=== PATIENT | female | born 1985 | race Caucasian/White ===

== ENCOUNTER → 2021-09-11 09:29 | Outpatient (CLI) | payer MEDICAID, SELFPAY ==
[2021-09-11 15:54] VITALS: BMI 33.6
== END ==
PROVIDERS: Visit Provider Nurse Practitioner Family
DX: Z11.1 Encounter for screening for respiratory tuberculosis (principal)
CPT/HCPCS: 86580

== ENCOUNTER → 2021-10-23 07:27 | Outpatient (CLI) | payer MEDICAID, SELFPAY ==
[2021-10-22 17:36] LABS: Basophils # 0.1 K/mm3 (0-0.2); Basophils % 1.1 % (0.1-2.0); Eosinophils # 0.3 K/mm3 (0.0-0.4); Eosinophils % 2.2 % (0.1-12.0); Hematocrit 43.7 % (37.0-47.0); Hemoglobin 14.6 g/dL (12.2-16.2); Lymphocytes # 2.8 K/mm3 (0.7-4.5); Lymphocytes % 21.9 % (10-50); Mean Corpuscular HGB Conc 33.4 g/dL (31.8-35.4); Mean Corpuscular Volume 83.9 fl (81-99); Mean Platelet Volume 8.5 fl (7.4-10.4); Monocytes # 0.6 K/mm3 (0.1-1.0); Monocytes % 4.4 % (1.7-9.3); Neutrophils # 9.1 K/mm3 (1.8-7.8); Neutrophils % 70.4 % (37.0-80.0); Platelet Count 841 K/mm3 (142-424); Red Blood Count 5.21 M/mm3 (4.20-5.40); Red Cell Distribution Width 16.3 % (11.5-17.5); White Blood Count 12.9 K/mm3 (4.8-10.8)
[2021-10-22 17:47] LABS: Alanine Aminotransferase 17 U/L (12-78); Albumin Level 4.2 g/dl (3.5-5.0); Albumin/Globulin Ratio 1.4 (1.1-1.8); Alkaline Phosphatase 112 U/L (38-126); Anion Gap 12.5 mEq/L (5-15); Aspartate Amino Transferase 33 U/L (14-36); Bilirubin,Total 0.2 mg/dl (0.2-1.3); Blood Urea Nitrogen 11 mg/dl (7-17); Calcium 9.2 mg/dl (8.4-10.2); Carbon Dioxide 26 mmol/L (22.0-30.0); Chloride 105 mmol/L (98-107); Estimated Glomerular Filt Rate 114 ml/min (>60); GFR (African American) 138 ML/MIN (>60); Globulin 3.1 g/dL (1.3-3.2); Glucose 93 mg/dl (74-100); Potassium 4.5 mmoL/L (3.5-5.1); Sodium 139 mmol/L (136-145); Total Protein,Serum 7.3 g/dl (6.3-8.2)
[2021-10-22 17:52] LABS: C-Reactive Protein 7.3 mg/L (0-4)
[2021-10-22 18:17] LABS: Erythrocyte Sedimentation Rate 16 mm/hr (0-20)
[2021-10-22 18:37] LABS: Vitamin B12 601 pg/mL (239-931)
[2021-10-24 12:36] LABS: RA Latex Turbid. <10.0 IU/mL (<14.0)
[2021-10-24 13:12] LABS: Anti-Centromere B Antibodies <0.2 AI (0.0-0.9); Anti-DNA (DS) Ab Qn 1 IU/mL (0-9); Anti-Jo-1 <0.2 AI (0.0-0.9); Anti-Smith Antibody <0.2 AI (0.0-0.9); Antichromatin Antibodies <0.2 AI (0.0-0.9); Antiscleroderma-70 Antibodies <0.2 AI (0.0-0.9); RNP Antibodies 0.2 AI (0.0-0.9); Sjogren's Anti-SS-A <0.2 AI (0.0-0.9); Sjogren's Anti-SS-B <0.2 AI (0.0-0.9)
[2021-10-28 01:07] LABS: Anti-Cyclic Citrullinated Pept 5 units (0-19)
== END ==
PROVIDERS: PCP Physician Assistant; Visit Provider Physician Assistant
DX: M54.12 Radiculopathy, cervical region (principal); R60.9 Edema, unspecified; R20.0 Anesthesia of skin; R20.2 Paresthesia of skin; M79.89 Other specified soft tissue disorders; L73.2 Hidradenitis suppurativa
CPT/HCPCS: 80053; 82607; 84443; 85025; 85651; 86140; 86200; 86225; 86235; 86431; 87522

== ENCOUNTER → 2021-11-13 08:10 | Outpatient (CLI) | payer MEDICAID, SELFPAY ==
--- NOTE | 2021-11-13 08:11 | MR_ITS ---
FINAL REPORT CLINICAL HISTORY: neck pain radiating down both arms. BILATERAL HAND SWELLING 2MONTHS. FINDINGS: Multiplanar MR imaging of the cervical spine was performed without contrast. On the sagittal T2-weighted images, disc degeneration is seen at multiple levels. There is straightening of the normal cervical curvature which could be due to positioning or muscle spasm. There is no evidence of fracture. The vertebral alignment is normal. The cervical spinal cord has an unremarkable appearance without evidence of mass, edema or syrinx. No significant canal stenosis is identified. The cervicomedullary junction is normal. C2-3: Left uncovertebral osteophytes are present. There is mild left neural foraminal narrowing. C3-4: There is a small central disc protrusion. C4-5: There is a small central disc protrusion. There is mild right neural foraminal narrowing. C5-6: An annular bulge is present. There is a small central disc protrusion. C6-7: An annular bulge is present. There is a right foraminal disc protrusion. There is moderate right and mild left neural foraminal narrowing. C7-T1: Bilateral uncovertebral osteophytes are present. There is moderate right and mild left neural foraminal narrowing. IMPRESSION: Multi level degenerative disc disease with spondylosis and areas of neural foraminal narrowing. Small central disc protrusions at several levels. Right foraminal disc protrusion at C6-7. Reviewed, Interpreted and Dictated by Gilberto Roy III, MD Transcribed by Nisha Garcia Authenticated and [facility]
[2021-11-13 08:30] LABS: Urine Pregnancy, HCG Qual. Negative (Negative)
== END ==
PROVIDERS: PCP Physician Assistant; Visit Provider Physician Assistant
DX: M54.12 Radiculopathy, cervical region (principal); Z01.812 Encounter for preprocedural laboratory examination
CPT/HCPCS: 72141; 76376; 81025

== ENCOUNTER 2021-12-01 08:49 | Outpatient (RCR) | payer MEDICAID, SELFPAY ==
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
== END 2021-12-01 08:50 | disposition home or self-care (01) ==
LOC: PT 08:49
PROVIDERS: PCP Physician Assistant; Visit Provider Physician Assistant
DX: M54.2 Cervicalgia (principal)
CPT/HCPCS: 97010; 97012; 97014; 97163; G0283

== ENCOUNTER → 2021-12-30 09:04 | Outpatient (POV) | payer MEDICAID, SELFPAY ==
[2021-12-30 09:14] VITALS: BP 149/86; PULSE 91; RESP 20; O2SAT 97; BMI 37.2
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
== END ==
PROVIDERS: PCP Physician Assistant; Visit Provider Nurse Practitioner Family
DX: M50.123 Cervical disc disorder at C6-C7 level with radiculopathy (principal); M54.40 Lumbago with sciatica, unspecified side; Z72.0 Tobacco use
CPT/HCPCS: 99202; G0463

== ENCOUNTER 2022-01-13 09:12 | Day surgery (SDC) | payer MEDICAID, SELFPAY ==
[2022-01-13 09:19] VITALS: BP 140/76; PULSE 87; RESP 20; O2SAT 96
[2022-01-13 09:20] VITALS: BP 156/80; PULSE 97; TEMP 36.4; O2SAT 96; BMI 37.2
[2022-01-13 09:29] VITALS: BP 140/93; PULSE 95; RESP 20; O2SAT 96
[2022-01-13 09:30] VITALS: BP 140/93; PULSE 97; RESP 20; O2SAT 95
--- NOTE | 2022-01-13 10:00 | P.PCN_ITS ---
Procedure Date: 01/13/22 Time: 11:00 Anesthesiologist:: Eduardo Ramirez CRNA Complications:: None Pre-procedure Diagnosis:: Degenerative disc disease cervical spine multilevels. Cervical radiculopathy. Post-procedure Diagnosis:: Degenerative disc disease cervical spine multilevels. Cervical radiculopathy. Same same Indications for Procedure:: Degenerative disc disease cervical spine multilevels. Cervical radiculopathy. Same same this patient is a 36-year-old pleasant female who comes our injection clinic today for cervical epidural steroid injection at the C6-7 level. Patient reports cervical neck pain. Bilateral arm radiculopathy. I discussed in detail with the patient regarding the procedure. Risks versus benefits. Answered her questions. She wishes to proceed. Procedure Details:: Procedure: Cervical epidural steroid injection under fluoroscopy. The patient was taken to the procedure room and noninvasive monitors placed, including noninvasive blood pressure cuff and pulse oximeter. The neck was prepped using chlorhexidine solution. The C6-7 interspace was palpated. The skin and subcutaneous tissue were anesthetized using lidocaine 1.5% and a 25-gauge needle. After this and 20-gauge Touhy epidural needle was placed in to the C6-7 interspace and advanced using loss if resistance to air until the epidural space was encountered. After confirmation of the needle placement in the epidural space with fluoroscopy, a solution containing 1.5% Lidocaine, 4ml and Depo- Medrol 80mg was inccrementally injected into the cervical epidural space. Plan and Disposition:: The patient tolerated the procedure well with no complications. The patient was observed in the pain clinic and then discharged home neurologically intact.
== END 2022-01-13 09:39 | disposition home or self-care (01) ==
LOC: SC.PAINP 09:14
PROVIDERS: PCP Physician Assistant; Visit Provider Nurse Anesthetist, Certified Registered
DX: M50.123 Cervical disc disorder at C6-C7 level with radiculopathy (principal)
CPT/HCPCS: 62321; J1040

== ENCOUNTER → 2022-01-20 09:41 | Outpatient (POV) | payer MEDICAID, SELFPAY ==
[2022-01-20 09:50] VITALS: BP 133/79; PULSE 86; RESP 18; TEMP 36.8; O2SAT 96; BMI 37.2
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
== END ==
PROVIDERS: PCP Physician Assistant; Visit Provider Nurse Practitioner Family
DX: M50.10 Cervical disc disorder with radiculopathy, unspecified cervical region (principal); M54.50 Low back pain, unspecified
CPT/HCPCS: 99212; G0463

== ENCOUNTER → 2022-01-29 13:22 | Outpatient (POV) | payer MEDICAID, SELFPAY ==
[2022-01-29 13:48] VITALS: BP 129/93; PULSE 100; RESP 18; TEMP 37.1; O2SAT 95; BMI 37.2
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
== END ==
PROVIDERS: PCP Physician Assistant; Visit Provider Nurse Practitioner Family
DX: M50.10 Cervical disc disorder with radiculopathy, unspecified cervical region (principal); Z72.0 Tobacco use; Z79.899 Other long term (current) drug therapy
CPT/HCPCS: 99212; G0463

== ENCOUNTER → 2022-02-03 15:00 | Outpatient (CLI) | payer MEDICAID, SELFPAY ==
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
== END ==
LOC: RAD 15:00
PROVIDERS: PCP Physician Assistant; Visit Provider Nurse Practitioner Family
DX: M54.6 Pain in thoracic spine (principal); M54.9 Dorsalgia, unspecified
CPT/HCPCS: 72146

== ENCOUNTER → 2022-02-11 08:21 | Outpatient (POV) | payer MEDICAID, SELFPAY ==
[2022-02-11 08:35] VITALS: BP 130/80; PULSE 85; RESP 18; TEMP 37; O2SAT 96; BMI 35.9
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
== END ==
PROVIDERS: PCP Physician Assistant; Visit Provider Nurse Practitioner Family
DX: M50.10 Cervical disc disorder with radiculopathy, unspecified cervical region (principal); M51.34 Other intervertebral disc degeneration, thoracic region
CPT/HCPCS: 99212; G0463

== ENCOUNTER 2022-02-11 08:43 | Emergency (ER) | payer MEDICAID, SELFPAY ==
--- NOTE | 2022-02-11 09:01 | EXP.UTC ---
Discharge Plan Disposition Patient Disposition: Home, Self-Care Condition: Good Prescriptions Prescriptions: New azithromycin [Zithromax] 250 mg tablet 250 mg PO UD DOSE PK Qty: 6 0RF Rx Instructions: Take two (2) tablets today, then one (1) tablet days #2 thru #5 benzonatate [benzonatate] 100 mg capsule 100 mg PO TIDP PRN (Reason: Cough) Qty: 30 0RF ondansetron 4 mg Tablet,Disintegrating 4 mg PO Q8H PRN (Reason: Nausea) Qty: 20 0RF No Action buprenorphine-naloxone [Suboxone] 8-2 mg film 1 film BUCCAL DAILY gabapentin [Neurontin] 300 mg capsule 300 mg PO Q12H Qty: 60 2RF hydroxyzine pamoate [Vistaril] 25 mg capsule 25 mg PO BID PRN (Reason: anxiety) Qty: 60 2RF celecoxib 200 MG capsule 200 mg PO DAILY citalopram 20 MG tablet 20 mg PO DAILY buspirone 7.5 MG tablet 7.5 mg PO BID cariprazine 1.5 MG capsule 1 mg PO DAILY spironolactone 25 mg tablet See Rx Instructions .ROUTE .COMPLEX Rx Instructions: TAKE 1 TABLET BY MOUTH TWICE DAILY methylprednisolone [Medrol (Vinicio)] 4 mg tablets,dose pack 4 mg PO PER PKG DIR minocycline 100 mg tablet 100 mg PO BID diclofenac sodium [Voltaren Arthritis Pain] 1 % gel 2 gm TP QID Rx Instructions: apply to single elbow, wrist or hand; for hand includes palm/fingers/back of hand Referrals Follow up/Referrals: Salina Agustin PA [Primary Care Provider] - See instructions Activity Restrictions/Add. Instructions Additional Instructions/Restrictions: Drink plenty of fluids. Take tylenol or ibuprofen for pain or fever. Take the medications as directed. Follow up with your regular doctor. GO TO THE ER FOR ANY WORSENING SYMPTOMS Quarantine until you know the results of your covid-19 test. Notify your school or workplace of your results and follow their instructions regarding return to work/school. Clinical Impressions Clinical Impression: Viral syndrome, Pharyngitis Stand Alone Forms Stand Alone Forms: Work/School Release Instructions Patient Instructions: DI for Pharyngitis/Tonsillopharyngitis -- Adult, Coronavirus Disease 2019, Preventing the Spread of Coronavirus Discharge Instructions Discharge ED Provider: Roberto Chapman [facility] HPI General Stated complaint: congestion, sore throat, QUINTERO Time Seen by Provider: 02/11/22 09:10 History of Present Illness Provider Complaint: She c/o sore throat and feeling bad for the past 2 days Related Data Home Medications Medication Instructions Recorded Confirmed buprenorphine 8 mg-naloxone 2 mg 1 film buccal DAILY ADDICTION 10/22/21 02/11/22 sublingual film (Suboxone) RECOVERY buspirone 7.5 mg tablet 7.5 mg PO BID Depression 12/30/21 02/11/22 cariprazine 1.5 mg capsule 1 mg PO DAILY DEPRESSION 12/30/21 02/11/22 celecoxib 200 mg capsule 200 mg PO DAILY Pain 12/30/21 02/11/22 citalopram 20 mg tablet 20 mg PO DAILY MOOD 12/30/21 02/11/22 diclofenac sodium 1 % topical gel 2 gm topical QID Pain 01/13/22 02/11/22 (Voltaren Arthritis Pain) methylprednisolone 4 mg tablets in 4 mg PO PER PKG DIR . 01/13/22 02/11/22 a dose pack (Medrol (Vinicio)) minocycline 100 mg tablet 100 mg PO BID . 01/13/22 02/11/22 spironolactone 25 mg tablet See Rx Instructions .Route 01/13/22 02/11/22 .COMPLEX . Previous Rx's Medication Instructions Recorded gabapentin 300 mg capsule 300 mg PO Q12H pain #60 caps 11/25/21 (Neurontin) hydroxyzine pamoate 25 mg capsule 25 mg PO BID PRN anxiety #60 caps 11/25/21 (Vistaril) azithromycin 250 mg tablet 250 mg PO UD DOSE PK #6 tabs 02/11/22 (Zithromax) benzonatate 100 mg capsule 100 mg PO TIDP PRN Cough #30 caps 02/11/22 ondansetron 4 mg disintegrating 4 mg PO Q8H PRN Nausea #20 tabs 02/11/22 tablet Allergies Allergy/AdvReac Type Severity Reaction Status Date / Time tramadol Allergy Verified 11/25/21 15:36 [facility] Medical History (Reviewed 02/12/22 @ 22:29
[2022-02-11 09:35] VITALS: BP 157/70; PULSE 85; RESP 18; TEMP 36.9; O2SAT 98; BMI 37.2
[2022-02-11 09:38] LABS: UTC Strep Screen (Rapid) Negative (Negative)
[2022-02-11 10:14] VITALS: BP 157/70; PULSE 85; RESP 18; TEMP 36.9; O2SAT 98
== END 2022-02-11 10:15 | disposition home or self-care (01) ==
PROVIDERS: Emergency Provider Nurse Practitioner Family; PCP Physician Assistant
DX: J02.9 Acute pharyngitis, unspecified (principal); B34.9 Viral infection, unspecified
CPT/HCPCS: 87880; 99212; C9803; G0463; U0003; U0005

== ENCOUNTER → 2022-03-12 12:09 | Outpatient (CLI) | payer MEDICAID, SELFPAY ==
[2022-03-12 14:18] LABS: HCG,Quantitative 69624 mIU/ml (0-5.42)
== END ==
PROVIDERS: PCP Physician Assistant; Visit Provider Obstetrics & Gynecology
DX: N92.6 Irregular menstruation, unspecified (principal)
CPT/HCPCS: 36415; 84702

== ENCOUNTER → 2022-03-23 09:53 | Outpatient (CLI) | payer MEDICAID, SELFPAY ==
[2022-03-23 10:49] LABS: Basophils # 0.1 K/mm3 (0-0.2); Basophils % 0.5 % (0.1-2.0); Eosinophils # 0.2 K/mm3 (0.0-0.4); Eosinophils % 1.3 % (0.1-12.0); Hemoglobin 13.9 g/dL (12.2-16.2); Lymphocytes # 1.8 K/mm3 (0.7-4.5); Lymphocytes % 12.8 % (10-50); Mean Corpuscular HGB Conc 33.1 g/dL (31.8-35.4); Mean Corpuscular Hemoglobin 28.7 pg (27.0-31.2); Mean Corpuscular Volume 86.7 fl (81-99); Mean Platelet Volume 8.2 fl (7.4-10.4); Monocytes # 0.5 K/mm3 (0.1-1.0); Monocytes % 3.2 % (1.7-9.3); Neutrophils # 11.7 K/mm3 (1.8-7.8); Platelet Count 730 K/mm3 (142-424); Red Blood Count 4.85 M/mm3 (4.20-5.40); Red Cell Distribution Width 14.6 % (11.5-17.5); White Blood Count 14.3 K/mm3 (4.8-10.8)
[2022-03-24 06:12] LABS: HIV Screen 4th Generation wRfx Non Reactive (Non Reactive)
[2022-03-24 11:18] LABS: Rapid Plasma Reagin Ab Titer Non Reactive (NonRea<1:1)
[2022-04-14 09:45] LABS: Hepatitis B Surface Antigen Negative
[2022-04-14 09:48] LABS: Hepatitis C Antibody <0.1
== END ==
PROVIDERS: PCP Physician Assistant; Visit Provider Obstetrics & Gynecology
DX: Z34.90 Encounter for supervision of normal pregnancy, unspecified, unspecified trimester (principal)
CPT/HCPCS: 36415; 85025; 86592; 86703; 86762; 86850; 87086; 87340; 87380; G0432

== ENCOUNTER 2022-04-08 22:44 | Emergency (ER) | payer MEDICAID, SELFPAY ==
[2022-04-08 23:03] VITALS: BP 120/57; PULSE 88; RESP 18; TEMP 37.1; O2SAT 96; BMI 38.9
[2022-04-08 23:28] LABS: Microscopic, Urine URINE MICROSCOPIC (MICROSCOPIC)
[2022-04-08 23:31] LABS: Appearance,Urine SL CLOUDY (Clear); Bilirubin,Urine Negative (Negative); Blood, Urine 3+ (Negative); Color,Urine YELLOW (Yellow); Glucose,Urine (UA) Negative (Negative); Ketones,Urine Negative (Negative); Leukocyte Esterase,Urine Negative (Negative); Nitrate,Urine Negative (Negative); Protein,Urine Negative (Negative); Specific Gravity, Urine 1.025 (1.005-1.030); Urobilinogen,Urine 0.2 EU/dl (0.2)
[2022-04-08 23:35] LABS: Urine Pregnancy, HCG Qual. Positive (Negative)
[2022-04-08 23:42] LABS: Basophils # 0.1 K/mm3 (0-0.2); Basophils % 0.6 % (0.1-2.0); Eosinophils # 0.4 K/mm3 (0.0-0.4); Eosinophils % 2.9 % (0.1-12.0); Hematocrit 38.7 % (37.0-47.0); Hemoglobin 13.1 g/dL (12.2-16.2); Lymphocytes % 20.6 % (10-50); Mean Corpuscular HGB Conc 33.8 g/dL (31.8-35.4); Mean Corpuscular Hemoglobin 29.1 pg (27.0-31.2); Mean Corpuscular Volume 86.2 fl (81-99); Mean Platelet Volume 7.9 fl (7.4-10.4); Monocytes # 0.6 K/mm3 (0.1-1.0); Monocytes % 3.8 % (1.7-9.3); Neutrophils # 10.5 K/mm3 (1.8-7.8); Platelet Count 675 K/mm3 (142-424); Red Blood Count 4.49 M/mm3 (4.20-5.40); Red Cell Distribution Width 14.3 % (11.5-17.5); White Blood Count 14.6 K/mm3 (4.8-10.8)
[2022-04-08 23:46] LABS: Chloride 103 mmol/L (98-107); Potassium 3.9 mmoL/L (3.5-5.1); Sodium 137 mmol/L (136-145)
--- NOTE | 2022-04-08 23:48 | US_ITS ---
PROCEDURE INFORMATION: Exam: US , Transvaginal Exam date and time: 04/08/2022 11:54 PM Age: 36 years old Clinical indication: Lmp or gestational age (in weeks): 12w6; Antepartum complications; Bleeding; ; Additional info: 14 wk , bleeding after intercourse TECHNIQUE: Imaging protocol: Real-time transvaginal obstetrical ultrasound of the maternal pelvis with image documentation. Transvaginal imaging was used for better evaluation of the fetus, adnexa, and/or cervix. COMPARISON: No relevant prior studies available. FINDINGS: Gestation: There is a single intrauterine identified. Unremarkable limited exam. heart rate: cardiac activity is noted at a rate of 167 bpm. Placenta: The placenta is forming posteriorly. The inferior placental tip covers the internal cervical os. No subchorionic hemorrhage is demonstrated. Amniotic fluid: Amniotic fluid is adequate. BIOMETRY: [place]-Rump length (CRL): Based on crown-rump length the estimated age is 12 weeks 4 days. MATERNAL: Right ovary/adnexa: The right ovary measures 40 x 18 x 20 mm with normal echo pattern and blood flow. Left ovary/adnexa: The left ovary measures 32 x 32 x 20 mm with normal echo pattern and blood flow. IMPRESSION: Single living intrauterine with estimated age of 12 weeks 4 days. cardiac activity is present at a rate of 167 bpm. The placenta is forming posteriorly with the inferior placental tip covering the internal cervical os. Follow-up is recommended.
--- NOTE | 2022-04-08 23:48 | HMH.EDUROGF ---
Discharge Plan Disposition Patient Disposition: Home, Self-Care Chief Complaint: Vaginal Bleeding Prescriptions Prescriptions: No Action buprenorphine-naloxone [Suboxone] 8-2 mg film 1 film BUCCAL DAILY [id number] 28 mg iron- 1 mg-400 mg capsule 1 cap PO DAILY Referrals Follow up/Referrals: Isis Garcia MD [Primary Care Provider] - See instructions Clinical Impressions Clinical Impression: Instructions Patient Instructions: DI for Vaginal Bleeding During Discharge ED Provider: Patrick Cho Female Urogenital HPI General Chief complaint: Vaginal Bleeding Stated complaint: 13 Wks pregant vaginal bleeding Time Seen by Provider: 04/08/22 23:48 Mode of Arrival: Ambulatory Source of Information: Patient and Medical Record Limitations: No Limitations Description of Symptoms (Recalled from ER Triage Doc. by RN): pt is currently 14 weeks . States that she had intercourse tonight and two hours later she noticed heavy vaginal bleeding. States that was roughly at 1900 and she noticed it happen again at 2030. History of Present Illness HPI Narrative: 13 weeks preg with spotting after coitus Complaint: vaginal bleeding Onset (ago): hour(s) Severity: mild : Yes Associated symptoms: vaginal bleeding Related Data Home Medications Medication Instructions Recorded Confirmed buprenorphine 8 mg-naloxone 2 mg 1 film buccal DAILY ADDICTION 10/22/21 04/08/22 sublingual film (Suboxone) RECOVERY vitamins no.68-iron 28 1 cap PO DAILY vitamin 04/08/22 04/08/22 mg-folate no.6 1 mg-dha 400 mg capsule Allergies Allergy/AdvReac Type Severity Reaction Status Date / Time tramadol Allergy Verified 04/02/22 09:15 [facility] Medical History (Updated 04/09/22 @ 00:30 by Patrick Cho MD) Anxiety and depression Neuropathy Thrombocytosis Surgical History (Updated 03/23/22 @ 09:06 by Isis Garcia MD) Hx of section Social History Smoking Status: Current every day smoker tobacco type: cigarettes alcohol intake: never substance use type: unknown current occupational status: employed Travel in the last 8 weeks: None ROS Obtained: Yes All systems reviewed & no additional complaints except as documented Physical Exam General General appearance: alert Head Head exam: normocephalic Eye Eye exam: Present PERRL and EOMI ENT ENT exam: Present mucous membranes moist Neck Neck exam: Present trachea midline Respiratory Respiratory exam: Absent respiratory distress Cardiovascular Cardiovascular exam: Present regular rate Abdominal Exam Abdominal exam: Present soft Extremities Exam Extremities exam: Present full ROM Neurological Exam Neurological exam: Present alert, oriented X3 and CN II-XII intact Skin Skin exam: Absent rash Medical Decision Making Medical Records Medical records reviewed: Yes I reviewed the patient's medical records. Dimitris Inquiry Pt receiving controlled substance: No Vital Signs: 04/08/22 23:03 Temperature 98.7 F Temperature Source Oral Pulse Rate [Apical] 88 Respiratory Rate 18 Blood Pressure [Right Arm] 120/57 L Blood Pressure Mean [Right Arm] 78 Blood Pressure Source [Right Arm] Automatic Cuff Blood Pressure Position [Right Arm] Sitting 02 Sat by Pulse Oximetry 96 Oxygen Delivery Method Room Air Lab Data Lab results reviewed: Yes I reviewed the patient's lab results. Lab Results 04/08/22 22:52: Urine Color Yellow, Urine Appearance Sl cloudy, Urine pH 7.0, Ur Specific [place] 1.025, Urine Protein Negative, Urine Glucose (UA) Negative, Urine Ketones Negative, Urine Blood 3+, Urine Nitrate Negative, Urine Bilirubin Negative, Urine Urobilinogen 0.2, Ur Leukocyte Esterase Negative, Urine RBC 5-10, Urine WBC Occasional, Ur Squamous Epith Cells 3-5, Urine Bacteria Trace 04/08/22 22:52: Urine HCG, Qual Positive
[2022-04-08 23:49] LABS: Alanine Aminotransferase 11 U/L (12-78); Albumin Level 4.1 g/dl (3.5-5.0); Albumin/Globulin Ratio 1.4 (1.1-1.8); Alkaline Phosphatase 68 U/L (38-126); Anion Gap 9.9 mEq/L (5-15); Aspartate Amino Transferase 16 U/L (14-36); Blood Urea Nitrogen 10 mg/dl (7-17); Carbon Dioxide 28 mmol/L (22.0-30.0); Creatinine Clearance Estimated 247 mL/min (50-200); Estimated Glomerular Filt Rate 140 ml/min (>60); GFR (African American) 170 ML/MIN (>60); Globulin 2.9 g/dL (1.3-3.2)
[2022-04-08 23:50] LABS: Calcium 9.8 mg/dl (8.4-10.2); Glucose 98 mg/dl (74-100)
[2022-04-08 23:52] LABS: Bilirubin,Total < 0.1 mg/dl (0.2-1.3)
--- NOTE | 2022-04-08 23:52 | PC.NURSE ---
Pt gone to RAD for U/S
[2022-04-08 23:54] LABS: Bacteria,Urine Trace /lpf; WBC,Urine Occasional #/hpf (0-3)
[2022-04-09 00:32] VITALS: BP 118/60; PULSE 67; RESP 17; TEMP 36.7; O2SAT 99
[2022-04-09 00:55] LABS: HCG,Quantitative 21999 mIU/ml (0-5.42)
== END 2022-04-09 00:47 | disposition home or self-care (01) ==
PROVIDERS: Emergency Provider Emergency Medicine; PCP Obstetrics & Gynecology
DX: O46.8X2 Other antepartum hemorrhage, second trimester (principal); Z3A.14 14 weeks gestation of pregnancy; Z88.6 Allergy status to analgesic agent; F11.20 Opioid dependence, uncomplicated
CPT/HCPCS: 76817; 80053; 81001; 81025; 84702; 85025; 99284

== ENCOUNTER → 2022-05-14 09:06 | Outpatient (CLI) | payer MEDICAID, SELFPAY ==
[2022-05-14 10:19] LABS: Basophils # 0.1 K/mm3 (0-0.2); Basophils % 0.3 % (0.1-2.0); Eosinophils # 0.3 K/mm3 (0.0-0.4); Eosinophils % 2.1 % (0.1-12.0); Hematocrit 36.2 % (37.0-47.0); Hemoglobin 12.3 g/dL (12.2-16.2); Lymphocytes # 2.1 K/mm3 (0.7-4.5); Lymphocytes % 13.4 % (10-50); Mean Corpuscular HGB Conc 33.9 g/dL (31.8-35.4); Mean Corpuscular Volume 88.4 fl (81-99); Mean Platelet Volume 7.7 fl (7.4-10.4); Monocytes # 0.6 K/mm3 (0.1-1.0); Monocytes % 3.7 % (1.7-9.3); Neutrophils # 12.3 K/mm3 (1.8-7.8); Neutrophils % 80.5 % (37.0-80.0); Platelet Count 681 K/mm3 (142-424); Red Blood Count 4.09 M/mm3 (4.20-5.40); Red Cell Distribution Width 14.3 % (11.5-17.5); White Blood Count 15.3 K/mm3 (4.8-10.8)
[2022-05-14 10:21] LABS: MANUAL DIFFERENTIAL MANUAL DIFFERENTIAL (MANUAL DIFF)
[2022-05-14 10:32] LABS: Eosinophils % 1 % (0-3); Lymphocytes % 5 % (10-50); Monocytes % 5 % (2-9); Neutrophils % 89 % (42-76); Total Cells Counted 100
[2022-05-14 10:33] LABS: Platelet Estimate Moderate Increase; RBC Morphology Normal
== END ==
PROVIDERS: PCP Physician Assistant; Visit Provider Internal Medicine Medical Oncology
DX: D47.1 Chronic myeloproliferative disease (principal); Z15.89 Genetic susceptibility to other disease
CPT/HCPCS: 36415; 85007; 85025

== ENCOUNTER → 2022-07-16 14:30 | Outpatient (CLI) | payer MEDICAID, SELFPAY ==
[2022-07-16 15:27] LABS: Basophils % 0.3 % (0.1-2.0); Eosinophils # 0.3 K/mm3 (0.0-0.4); Lymphocytes # 2.3 K/mm3 (0.7-4.5); Lymphocytes % 14.9 % (10-50); Mean Corpuscular HGB Conc 33.2 g/dL (31.8-35.4); Mean Corpuscular Hemoglobin 29.6 pg (27.0-31.2); Mean Platelet Volume 7.9 fl (7.4-10.4); Monocytes # 0.7 K/mm3 (0.1-1.0); Monocytes % 4.4 % (1.7-9.3); Neutrophils # 11.9 K/mm3 (1.8-7.8); Neutrophils % 78.4 % (37.0-80.0); Platelet Count 654 K/mm3 (142-424); Red Blood Count 4.04 M/mm3 (4.20-5.40); Red Cell Distribution Width 14.3 % (11.5-17.5); White Blood Count 15.2 K/mm3 (4.8-10.8)
[2022-07-16 15:29] LABS: MANUAL DIFFERENTIAL MANUAL DIFFERENTIAL (MANUAL DIFF)
[2022-07-16 17:42] LABS: Eosinophils % 2 % (0-3); Lymphocytes % 22 % (10-50); Monocytes % 4 % (2-9); Neutrophils % 72 % (42-76); Platelet Estimate Marked Increase; RBC Morphology Normal; Total Cells Counted 100
== END ==
PROVIDERS: PCP Physician Assistant; Visit Provider Internal Medicine Medical Oncology
DX: D75.839 Thrombocytosis, unspecified (principal); Z15.89 Genetic susceptibility to other disease
CPT/HCPCS: 36415; 85007; 85025

== ENCOUNTER → 2022-07-17 10:42 | Outpatient (CLI) | payer MEDICAID, SELFPAY ==
[2022-07-17 11:13] LABS: Basophils # 0.1 K/mm3 (0-0.2); Basophils % 0.5 % (0.1-2.0); Eosinophils # 0.4 K/mm3 (0.0-0.4); Eosinophils % 2.6 % (0.1-12.0); Hematocrit 35.2 % (37.0-47.0); Hemoglobin 11.9 g/dL (12.2-16.2); Lymphocytes # 2.1 K/mm3 (0.7-4.5); Lymphocytes % 12.7 % (10-50); Mean Corpuscular HGB Conc 33.7 g/dL (31.8-35.4); Mean Corpuscular Hemoglobin 29.6 pg (27.0-31.2); Mean Corpuscular Volume 87.8 fl (81-99); Mean Platelet Volume 8.1 fl (7.4-10.4); Monocytes # 0.7 K/mm3 (0.1-1.0); Neutrophils # 13.2 K/mm3 (1.8-7.8); Neutrophils % 80.2 % (37.0-80.0); Platelet Count 645 K/mm3 (142-424); Red Blood Count 4.01 M/mm3 (4.20-5.40); Red Cell Distribution Width 14.4 % (11.5-17.5); White Blood Count 16.5 K/mm3 (4.8-10.8)
[2022-07-17 11:14] LABS: MANUAL DIFFERENTIAL MANUAL DIFFERENTIAL (MANUAL DIFF)
[2022-07-17 11:51] LABS: Eosinophils % 4 % (0-3); Lymphocytes % 12 % (10-50); Monocytes % 4 % (2-9); Neutrophils % 80 % (42-76); Platelet Estimate Slight Increase; RBC Morphology Normal; Total Cells Counted 100
== END ==
PROVIDERS: PCP Physician Assistant; Visit Provider Obstetrics & Gynecology
DX: Z34.90 Encounter for supervision of normal pregnancy, unspecified, unspecified trimester (principal)
CPT/HCPCS: 36415; 85007; 85025

== ENCOUNTER → 2022-07-22 09:43 | Outpatient (CLI) | payer MEDICAID, SELFPAY ==
[2022-07-22 10:20] LABS: Glucose,Fasting 114 mg/dl (74-100)
[2022-07-22 11:44] LABS: Glucose 1 Hour 148 mg/dL (74-100)
[2022-07-22 11:58] LABS: Benzodiazepines Screen,Urine Negative ng/ml (<200)
[2022-07-22 11:59] LABS: Amphetamine/Metha Screen,Urine Negative ng/ml (<1000)
[2022-07-22 12:00] LABS: Barbiturates Screen,Urine Positive ng/ml (<200); Cannabinoid Screen,Urine Positive ng/ml (<50)
[2022-07-22 12:01] LABS: Cocaine Screen,Urine Negative ng/ml (<300); Methadone Screen,Urine Negative ng/ml (<300)
[2022-07-22 12:03] LABS: Opiate Screen,Urine Negative ng/ml (<300)
[2022-07-22 12:04] LABS: Phencyclidine Screen,Urine Negative ng/ml (<25)
== END ==
PROVIDERS: PCP Physician Assistant; Visit Provider Obstetrics & Gynecology
DX: O99.320 Drug use complicating pregnancy, unspecified trimester (principal); F11.20 Opioid dependence, uncomplicated
CPT/HCPCS: 36415; 80305; 82951

== ENCOUNTER → 2022-07-29 10:11 | Outpatient (CLI) | payer MEDICAID, SELFPAY ==
[2022-07-29 10:48] LABS: Glucose,Fasting 106 mg/dl (74-100)
[2022-07-29 12:12] LABS: Glucose 1 Hour 161 mg/dL (74-100)
[2022-07-29 13:04] LABS: Glucose 2 Hour 98 mg/dL (74-100)
[2022-07-29 14:48] LABS: Glucose 3 Hour 86 mg/dL (74-100)
== END ==
PROVIDERS: PCP Physician Assistant; Visit Provider Obstetrics & Gynecology
DX: Z34.90 Encounter for supervision of normal pregnancy, unspecified, unspecified trimester (principal); Z3A.27 27 weeks gestation of pregnancy
CPT/HCPCS: 36415; 82951

== ENCOUNTER → 2022-10-28 01:00 | Outpatient (CLI) | payer MEDICAID, SELFPAY ==
[2022-10-28 12:30] LABS: Basophils # 0.1 K/mm3 (0-0.2); Basophils % 0.4 % (0.1-2.0); Eosinophils # 0.5 K/mm3 (0.0-0.4); Hematocrit 41.5 % (37.0-47.0); Hemoglobin 13.1 g/dL (12.2-16.2); Lymphocytes # 2.5 K/mm3 (0.7-4.5); Lymphocytes % 21.2 % (10-50); Mean Corpuscular HGB Conc 31.7 g/dL (31.8-35.4); Mean Corpuscular Hemoglobin 27.3 pg (27.0-31.2); Mean Corpuscular Volume 86.1 fl (81-99); Mean Platelet Volume 7.8 fl (7.4-10.4); Monocytes # 0.5 K/mm3 (0.1-1.0); Monocytes % 4.2 % (1.7-9.3); Neutrophils # 8.2 K/mm3 (1.8-7.8); Neutrophils % 70.2 % (37.0-80.0); Platelet Count 829 K/mm3 (142-424); Red Blood Count 4.81 M/mm3 (4.20-5.40); Red Cell Distribution Width 14.3 % (11.5-17.5); White Blood Count 11.7 K/mm3 (4.8-10.8)
[2022-10-28 13:11] LABS: Alanine Aminotransferase 18 U/L (12-78); Albumin/Globulin Ratio 1.4 (1.1-1.8); Alkaline Phosphatase 135 U/L (38-126); Anion Gap 13.9 mEq/L (5-15); Aspartate Amino Transferase 23 U/L (14-36); Bilirubin,Total 0.2 mg/dl (0.2-1.3); Blood Urea Nitrogen 15 mg/dl (7-17); Carbon Dioxide 26 mmol/L (22.0-30.0); Chloride 105 mmol/L (98-107); Chol/HDL Ratio 4.3 (1-3.5); Cholesterol 193 mg/dl (140-200); Estimated Glomerular Filt Rate 113 ml/min (>60); GFR (African American) 137 ML/MIN (>60); Globulin 2.9 g/dL (1.3-3.2); Glucose 96 mg/dl (74-100); HDL Cholesterol 45 mg/dl (40-60); Potassium 4.9 mmoL/L (3.5-5.1); Sodium 140 mmol/L (136-145); Total Protein,Serum 6.9 g/dl (6.3-8.2); Triglycerides 222 mg/dl (30-150); VLDL Cholesterol 44 mg/dL (0-40)
[2022-10-28 13:22] LABS: Direct LDL Cholesterol 88.82 mg/dL (100-129)
[2022-10-28 13:30] LABS: 25-OH Vitamin D, Total 30.9 ng/mL (30-100)
[2022-10-28 13:42] LABS: Thyroid Stimulating Hormone 0.88 uIU/mL (0.465-4.68)
== END ==
PROVIDERS: PCP Physician Assistant; Visit Provider Physician Assistant
DX: F41.9 Anxiety disorder, unspecified (principal); G62.9 Polyneuropathy, unspecified; L73.2 Hidradenitis suppurativa; E66.9 Obesity, unspecified; Z68.36 Body mass index [BMI] 36.0-36.9, adult; Z15.89 Genetic susceptibility to other disease
CPT/HCPCS: 80053; 80061; 82306; 84443; 85025

== ENCOUNTER → 2022-11-05 09:51 | Outpatient (CLI) | payer MEDICAID, SELFPAY | PROVIDERS: PCP Physician Assistant; Visit Provider Physician Assistant | DX: Z15.89 Genetic susceptibility to other disease (principal) ==

== ENCOUNTER → 2023-04-29 13:01 | Outpatient (CLI) | payer MEDICAID, SELFPAY ==
[2023-04-29 14:14] LABS: Amphetamine/Metha Screen,Urine Negative ng/ml (<1000)
[2023-04-29 14:16] LABS: Barbiturates Screen,Urine Negative ng/ml (<200); Cannabinoid Screen,Urine Positive ng/ml (<50)
[2023-04-29 14:17] LABS: Benzodiazepines Screen,Urine Negative ng/ml (<200)
[2023-04-29 14:18] LABS: Cocaine Screen,Urine Negative ng/ml (<300); Opiate Screen,Urine Negative ng/ml (<300)
[2023-04-29 14:19] LABS: Methadone Screen,Urine Negative ng/ml (<300)
[2023-04-29 14:20] LABS: Phencyclidine Screen,Urine Negative ng/ml (<25)
== END ==
PROVIDERS: PCP Physician Assistant; Visit Provider Family Medicine
DX: Z79.899 Other long term (current) drug therapy (principal); N39.0 Urinary tract infection, site not specified; B96.29 Other Escherichia coli [E. coli] as the cause of diseases classified elsewhere
CPT/HCPCS: 80305; 87086

== ENCOUNTER 2023-06-07 18:13 | Outpatient (CLI) | payer MEDICAID, SELFPAY ==
[2023-06-07 23:20] LABS: Amphetamine/Metha Screen,Urine Positive ng/ml (<1000)
[2023-06-07 23:21] LABS: Barbiturates Screen,Urine Negative ng/ml (<200); Benzodiazepines Screen,Urine Negative ng/ml (<200)
[2023-06-07 23:22] LABS: Cannabinoid Screen,Urine Negative ng/ml (<50); Cocaine Screen,Urine Negative ng/ml (<300)
[2023-06-07 23:23] LABS: Methadone Screen,Urine Negative ng/ml (<300)
[2023-06-07 23:24] LABS: Opiate Screen,Urine Negative ng/ml (<300)
[2023-06-07 23:25] LABS: Phencyclidine Screen,Urine Negative ng/ml (<25)
[2023-06-13 17:23] LABS: Gabapentin,Urine 649.7 ug/mL (.)
== END 2023-06-07 23:59 ==
LOC: LAB.DROPOF 18:13
PROVIDERS: PCP Physician Assistant; Visit Provider Physician Assistant
DX: Z79.899 Other long term (current) drug therapy (principal)
CPT/HCPCS: 80307

== ENCOUNTER 2023-08-04 11:00 | Outpatient (RCR) | payer MEDICAID, SELFPAY ==
--- NOTE | 2023-07-16 10:38 | HMH.PTOPEV ---
PT Outpatient Evaluation Rehab PT Outpatient Evaluation Start: 07/16/23 10:24 Freq: Status: Active Protocol: Document 07/16/23 10:24 BECKAYAKOV (Rec: 07/16/23 10:38 BECKACORINACHRISTY [id number]) E-signed By Carlos Rice, PT Outpatient Therapy Subjective History Subjective History Patient is a 38 year old female presenting to outpatient PT with reports of chronic cervical and thoracic spine pain with BUE radicular symptoms. Symptoms of insidious onset starting approx 4 years ago. Most recent imaging indicates multi -level cervical DDD, C 6/7 disc bulge and T 9/10 10/11 disc bulges. Radicular symptoms consistent with C 6/7 dermatomes. Comorbidities include hx of depression/ anxitey. New diagnosis of cancer in past 12 No months? Chief Complaint Pain,Stiff,Paresthesia Symptom Type Ache,Burning,Numbness,Tingling Symptoms Relieved By Rest/Positioning,Heat, Prescription Meds Prior Functional Limitations None Current Functional Limitations Reaching,Lifting,Housework, Desk Work/Reading,Driving Symptom Description Constant but Variable Level of pain today (0-10) 1 Pain scale - at its best (0-10) 1 Pain scale - at its worst (0-10) 8 Cervical Eval Palpation Cervical Muscles R Cervical Paraspinal,L Cervical Paraspinal,R Suboccipital,L Suboccipital,R CT Junction,L CT Junction,R Upper Trapezius,L Upper Trapezius,R Thoracic Paraspinals,L Thoracic Paraspinals Cervical/Thoracic Palpation Findings Spasm Posture Head/C-Spine Posture Sitting Position C-Spine Flattened Head/C-Spine Posture Standing Position C-Spine Flattened Flexibility Deficits Upper Trapezius Muscle Length (R) Moderate Tightness,(L) Moderate Tightness Levaetor Scapulae Muscle Length (R) Moderate Tightness,(L) Moderate Tightness Pectoralis Minor Muscle Length (R) Moderate Tightness,(L) Moderate Tightness Passive Joint Mobility Cervical PIVM WNL: R OA L OA R AA L AA R C2/3 L C2/3 R C3/4 L C3/4 R C4/5 L C4/5 R C5/6 L C5/6 R C6/7 L C6/7 R C7/T1 L C7/T1 AROM Cervical Spine Extension Active Range of 38 Motion (degrees) Cervical Spine Flexion Active Range of 46 Motion (degrees) Cervical Spine Right Lateral Flexion 37 Active Range of Motion (degrees) Cervical Spine Left Lateral Flexion 25 Active Range of Motion (degrees) Cervical Spine Right Rotation Active 60 Range of Motion (degrees) Cervical Spine Left Rotation Active 52 Range of Motion (degrees) MMT Bilateral Deltoid (C5) 5 Normal Biceps Brachii Strength Grade 5 Normal Wrist Extension Strength Grade 5 Normal Triceps Brachii Strength Grade 5 Normal Wrist Flexion Strength Grade 5 Normal Extensor Pollicis Longus Strength Grade 5 Normal Finger Abduction Strength Grade 5 Normal Altered Sensation Upper extremity Dermatomes C6,C7 Comment NT/burning R>L Special Test C-Spine Foraminal Compression (Spurling) Positive Left,Positive Right Test C-Spine Foraminal Distraction Test Positive Neck Disability Index Neck Disability Index Section 1: Pain Intensity The pain is very mild at moment Section 2: Personal Care (washing, I can look after myself dressing, etc.) normally but it causes extra pain Section 3: Lifting Pain prevents me lifting heavy weights off the floor, but I can manage Section 4: Reading I can't read as much as I want because of moderate pain in my neck Section 5: Headaches I have severe headaches, which come frequently Section 6: Concentration I have a lot of difficulty in concentrating when I want to Section 7: Work I can do most of my usual work , but no more Section 8: Driving I can drive my car as long as I want with moderate pain in my neck Section 9: Sleeping My sleep is moderately disturbed (2-3 hrs. sleepless) Section 10: Recreation I am able to engage in most, but not all of my usual recreation NDI Score 23 Outpatient Therapy Assessment Impairments Problems/Impairmments Palpation Tenderness,Impaired Range of Motion,Impaired Driving,Impaired Lifting, Impaired Household Care, Impaired Recreational Activities,Subjective C/O Pain Prognosis Rehab Potential Good Clinical Impression Consistent with Diagnosis Yes Short Term Goals Number of Weeks 2 Decrease Subjective C/O Pain Yes: 5/10at worst Patient to be Ind w/ HEP Yes Care Home Goals Number of Weeks 4-6 Decreased Palpation Tenderness Yes: 1/4 Increase Range of Motion Yes: WNL Restore Ability to Lift Objects to Yes: 10 lb without difficulty Shoulder Level Restore Ability to Lift Objects Overhead Yes Improve Ability For Household Care Yes Improve Neck Disability Index Score Yes: <15 Decrease Subjective C/O Pain Yes: 2/10 at worst Outpatient Therapy Plan of Care Treatment Plan May Include Therapeutic Exercise Including Home Yes Exercise Program Manual Therapy Techniques Yes Neuromuscular Re-education Yes Therapeutic Activities to Return to Yes Previous Functional/Work Level ADL/Self Care Education Yes Mechanical Traction Yes Dry Needling Yes Thermal Modalities Yes Electrical Stimulation Yes Ultrasound/Phonophoresis Yes Iontophoresis Yes Massage Yes Eval/Re-Eval Yes Frequency Times per week 2 Duration Number of Weeks 4-6 Addendums This patient is a candidate for social No or vocational rehab? Patient/Guardian verbally acknowledges Yes understanding of treatment program and consents to further treatment? Patient/Guardian verbally acknowledges Yes understanding of diagnosis, prognosis and goals for treatment? Eval Complexity PT Charges 75974 - Moderate Complexity Shoulder/Elbow Eval Shoulder Objective Measurements Elbow Objective Measurements PHYSICIAN CERTIFICATION: I certify the specified therapy services for Robyn Louis are required, authorized, and reviewed every 30 days.
== END 2023-08-04 12:00 | disposition home or self-care (01) ==
LOC: PT 11:00
PROVIDERS: Visit Provider Physician Assistant
DX: M54.12 Radiculopathy, cervical region (principal); M50.30 Other cervical disc degeneration, unspecified cervical region; R93.7 Abnormal findings on diagnostic imaging of other parts of musculoskeletal system
CPT/HCPCS: 97010; 97014; 97110; 97163; G0283

== ENCOUNTER 2023-08-12 12:30 | Outpatient (CLI) | payer MEDICAID, SELFPAY ==
--- NOTE | 2023-08-12 12:36 | XR_ITS ---
FINAL REPORT CLINICAL HISTORY: Wrist pain FINDINGS: Right wrist Three views were obtained. There is no acute fracture or dislocation. 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 The joint spaces appear normal. No soft tissue abnormality is identified. 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 Please correlate with known underlying congenital anomalies. Reviewed, Interpreted and Dictated by Alton Nieto MD Transcribed by Jaci Welch Authenticated and . [facility]
--- NOTE | 2023-08-12 12:36 | XR_ITS ---
FINAL REPORT CLINICAL HISTORY: lt wrist pain FINDINGS: Right wrist Three views were obtained. There is no acute fracture or dislocation. 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 The degree of shortening of the 4th and 5th metacarpals are congruent. The joint spaces appear normal. No soft tissue abnormality is identified. 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 Please correlate with known underlying congenital anomalies. Reviewed, Interpreted and Dictated by Alton Nieto MD Transcribed by Jaci Welch Authenticated and [facility]
== END 2023-08-12 23:59 ==
LOC: RAD 12:31
PROVIDERS: PCP Physician Assistant; Visit Provider Orthopaedic Surgery
DX: M25.531 Pain in right wrist (principal); M25.532 Pain in left wrist
CPT/HCPCS: 73110

== ENCOUNTER 2023-08-12 13:50 | Outpatient (RCR) | payer MEDICAID, SELFPAY | END 2023-08-12 15:00 | disposition home or self-care (01) | LOC: OT 13:50 | PROVIDERS: Visit Provider Orthopaedic Surgery | DX: M25.532 Pain in left wrist (principal); M25.531 Pain in right wrist | CPT/HCPCS: 97763 ==

== ENCOUNTER 2023-08-30 16:14 | Outpatient (CLI) | payer MEDICAID, SELFPAY ==
[2023-08-30 16:20] LABS: MANUAL DIFFERENTIAL MANUAL DIFFERENTIAL (MANUAL DIFF)
[2023-08-30 17:12] LABS: Basophils # 0.1 K/mm3 (0-0.2); Eosinophils # 0.5 K/mm3 (0.0-0.4); Eosinophils % 4.3 % (0.1-12.0); Hematocrit 44.3 % (37.0-47.0); Hemoglobin 14.5 g/dL (12.2-16.2); Lymphocytes # 3.7 K/mm3 (0.7-4.5); Mean Corpuscular HGB Conc 32.7 g/dL (31.8-35.4); Mean Corpuscular Hemoglobin 29.3 pg (27.0-31.2); Mean Corpuscular Volume 89.7 fl (81-99); Mean Platelet Volume 8.2 fl (7.4-10.4); Monocytes # 0.5 K/mm3 (0.1-1.0); Monocytes % 4.3 % (1.7-9.3); Neutrophils # 6.7 K/mm3 (1.8-7.8); Neutrophils % 58.4 % (37.0-80.0); Platelet Count 829 K/mm3 (142-424); Red Blood Count 4.94 M/mm3 (4.20-5.40); Red Cell Distribution Width 14.3 % (11.5-17.5); White Blood Count 11.5 K/mm3 (4.8-10.8)
[2023-08-30 17:33] LABS: Chloride 108 mmol/L (98-107); Sodium 141 mmol/L (136-145)
[2023-08-30 17:34] LABS: Potassium 4.6 mmoL/L (3.5-5.1)
[2023-08-30 17:36] LABS: Alanine Aminotransferase 17 U/L (12-78); Albumin Level 4.3 g/dl (3.5-5.0); Albumin/Globulin Ratio 1.5 (1.1-1.8); Alkaline Phosphatase 88 U/L (38-126); Anion Gap 7.6 mEq/L (5-15); Aspartate Amino Transferase 24 U/L (14-36); Bilirubin,Total 0.4 mg/dl (0.2-1.3); Blood Urea Nitrogen 15 mg/dl (7-17); Carbon Dioxide 30 mmol/L (22.0-30.0); Estimated Glomerular Filt Rate 81 ml/min (>60); GFR (African American) 98 ML/MIN (>60); Globulin 2.8 g/dL (1.3-3.2); Total Protein,Serum 7.1 g/dl (6.3-8.2)
[2023-08-30 17:37] LABS: Calcium 9.5 mg/dl (8.4-10.2); Glucose 107 mg/dl (74-100)
[2023-08-30 18:05] LABS: Eosinophils % 5 % (0-3); Hypochromasia 1+; Lymphocytes % 29 % (10-50); Monocytes % 1 % (2-9); Neutrophils % 65 % (42-76); Platelet Estimate Marked Increase; Total Cells Counted 100
== END 2023-08-30 23:59 | disposition home or self-care (01) ==
LOC: LAB 16:15
PROVIDERS: PCP Physician Assistant; Visit Provider Orthopaedic Surgery
DX: G56.01 Carpal tunnel syndrome, right upper limb (principal)
CPT/HCPCS: 36415; 80053; 85007; 85014; 85018; 85048; 85049

== ENCOUNTER 2023-10-14 12:14 | Outpatient (CLI) | payer MEDICAID, SELFPAY ==
--- NOTE | 2023-10-14 12:16 | MR_ITS ---
FINAL REPORT CLINICAL HISTORY: neck pain, BUE radiculopathy COMPARISON: 11/13/2021 FINDINGS: Multi planar MR imaging was obtained of the cervical spine with and without contrast. There is abnormal decreased signal throughout the cervical discs. There is mild reversal the cervical lordosis. The cervical cord demonstrates normal signal and configuration. C2-C3: There is no evidence of significant disc bulge or protrusion. There is no significant facet hypertrophy. C3-C4: There is no evidence of significant disc bulge or protrusion. There is no significant facet hypertrophy. C4-C5: There is no evidence of significant disc bulge or protrusion. There is no significant facet hypertrophy. C5-C6: There is no evidence of significant disc bulge or protrusion. There is no significant facet hypertrophy. C6-C7: Mild right posterolateral disc protrusion with moderate compromise of the right neural foramen. C7-T1: There is no evidence of significant disc bulge or protrusion. There is no significant facet hypertrophy. There is no abnormal contrast enhancement. IMPRESSION: Disc protrusion at C6-7 with moderate compromise of the right neural foramen. Reviewed, Interpreted and Dictated by Alton Nieto MD Transcribed by Patsy Luna Authenticated and [facility]
--- NOTE | 2023-10-14 12:16 | MR_ITS ---
FINAL REPORT CLINICAL HISTORY: abnormal thoracic MRI, radiculopathy. COMPARISON: 02/03/2022 FINDINGS: Multiplanar MR imaging of the thoracic spine was performed without and with contrast. On the sagittal T2-weighted images, there is mild abnormal decreased signal throughout the thoracic disks. The vertebrae are of normal height. There is no malalignment. The thoracic cord demonstrates normal signal and configuration. There is no evidence of significant canal stenosis. Fatty deposits are noted within multiple midthoracic vertebrae. On the axial images, there is no significant disc bulge or protrusion. There is no marrow edema. On the postcontrast images, no abnormal contrast enhancement is identified. IMPRESSION: Multilevel degenerative disc disease as described. No abnormal contrast enhancement identified. Reviewed, Interpreted and Dictated by Alton Nieto MD Transcribed by Patsy Luna Authenticated and [facility]
[2023-10-14] MEDS: GADOTERIDOL INJ 20ML SYRINGE 16 ML IV (14:10)
[2023-10-14] MEDS: SODIUM CHLORIDE 0.9% 10ML SYR (RAD ONLY) 10 ML IV (14:10)
== END 2023-10-14 23:59 | disposition home or self-care (01) ==
LOC: RAD 12:16
PROVIDERS: PCP Physician Assistant; Visit Provider Physician Assistant
DX: M54.12 Radiculopathy, cervical region (principal); R93.7 Abnormal findings on diagnostic imaging of other parts of musculoskeletal system
CPT/HCPCS: 72156; 72157; A9576

== ENCOUNTER 2024-02-28 11:07 | Outpatient (CLI) | payer MEDICAID, SELFPAY ==
[2024-02-28 18:33] LABS: Basophils % 0.3 % (0.1-2.0); Eosinophils # 0.4 K/mm3 (0.0-0.4); Hematocrit 36.4 % (37.0-47.0); Hemoglobin 12.5 g/dL (12.2-16.2); Lymphocytes % 15.7 % (10-50); Mean Corpuscular HGB Conc 34.4 g/dL (31.8-35.4); Mean Corpuscular Hemoglobin 29.7 pg (27.0-31.2); Mean Corpuscular Volume 86.5 fl (81-99); Mean Platelet Volume 8.2 fl (7.4-10.4); Monocytes # 0.5 K/mm3 (0.1-1.0); Monocytes % 3.8 % (1.7-9.3); Neutrophils % 77.2 % (37.0-80.0); Platelet Count 599 K/mm3 (142-424); Red Cell Distribution Width 14.5 % (11.5-17.5)
[2024-02-28 18:42] LABS: Potassium 4.6 mmoL/L (3.5-5.1)
[2024-02-28 18:44] LABS: Alanine Aminotransferase 12 U/L (12-78); Albumin/Globulin Ratio 1.4 (1.1-1.8); Bilirubin,Total 0.4 mg/dl (0.2-1.3); Blood Urea Nitrogen 6 mg/dl (7-17); Estimated Glomerular Filt Rate 180 ml/min (>60); GFR (African American) 217 ML/MIN (>60); Globulin 2.9 g/dL (1.3-3.2); Total Protein,Serum 6.9 g/dl (6.3-8.2)
[2024-02-28 18:45] LABS: Calcium 9.5 mg/dl (8.4-10.2); Glucose 94 mg/dl (74-100)
[2024-02-28 19:11] LABS: Chloride 103 mmol/L (98-107); Sodium 134 mmol/L (136-145)
[2024-02-28 19:14] LABS: Alkaline Phosphatase 72 U/L (38-126); Anion Gap 12.6 mEq/L (5-15); Aspartate Amino Transferase 17 U/L (14-36); Carbon Dioxide 23 mmol/L (22.0-30.0)
[2024-02-28 19:30] LABS: Creatinine,Urine Random 84 mg/dL (Not Estab.)
[2024-02-28 19:33] LABS: Microalbumin/Creatinine Ratio 10.5
[2024-02-28 20:02] LABS: Hemoglobin A1C 5.2 % (4.0-6.0)
[2024-02-28 21:27] LABS: HIV (1&2) Antibody Rapid NONREACTIVE (NONREACTIVE)
[2024-02-29 03:39] LABS: Thyroid Stimulating Hormone 1.06 uIU/mL (0.465-4.68)
[2024-03-01 05:27] LABS: HBsAg Screen Negative (Negative); HCV Ab Non Reactive (Non Reactive); Hep A Ab, IGM Negative (Negative); Hep B Core Ab, IgM Negative (Negative)
[2024-03-01 17:52] LABS: Peripheral Smear Review Scanned Result
== END 2024-02-28 23:59 | disposition home or self-care (01) ==
LOC: LAB.DROPOF 02-29 11:07
PROVIDERS: PCP Internal Medicine; Visit Provider Internal Medicine
DX: F19.90 Other psychoactive substance use, unspecified, uncomplicated (principal); F90.9 Attention-deficit hyperactivity disorder, unspecified type; F41.9 Anxiety disorder, unspecified; F32.A Depression, unspecified; Z11.59 Encounter for screening for other viral diseases; E66.3 Overweight; Z15.89 Genetic susceptibility to other disease; Z13.1 Encounter for screening for diabetes mellitus; D75.839 Thrombocytosis, unspecified; O24.419 Gestational diabetes mellitus in pregnancy, unspecified control; E05.90 Thyrotoxicosis, unspecified without thyrotoxic crisis or storm
CPT/HCPCS: 80050; 80053; 80074; 82043; 82570; 83036; 84443; 85025; 86803; 87389

== ENCOUNTER 2024-06-08 11:45 | Outpatient (CLI) | payer MEDICAID, SELFPAY ==
[2024-06-08 17:55] LABS: Coronavirus 19, PCR Not Detected (NotDetected); Influenza B, PCR Not Detected (NotDetected)
[2024-06-08 18:21] LABS: Basophils % 0.2 % (0.1-2.0); Eosinophils % 0.2 % (0.1-12.0); Hematocrit 32.2 % (37.0-47.0); Lymphocytes % 11.3 % (10-50); Mean Corpuscular HGB Conc 34.2 g/dL (31.8-35.4); Mean Platelet Volume 9.8 fl (7.4-10.4); Monocytes # 0.6 K/mm3 (0.1-1.0); Monocytes % 7.3 % (1.7-9.3); Neutrophils # 6.8 K/mm3 (1.8-7.8); Neutrophils % 80.6 % (37.0-80.0); Platelet Count 377 K/mm3 (142-424); Red Blood Count 3.79 M/mm3 (4.20-5.40); Red Cell Distribution Width 13.8 % (11.5-17.5); White Blood Count 8.5 K/mm3 (4.8-10.8)
[2024-06-08 19:28] LABS: C-Reactive Protein 65.7 mg/L (0-4)
[2024-06-08 20:42] LABS: Influenza A, PCR Detected (NotDetected)
== END 2024-06-08 23:59 | disposition home or self-care (01) ==
LOC: LAB.DROPOF 06-09 10:01
PROVIDERS: PCP Internal Medicine; Visit Provider Internal Medicine
DX: R05.9 Cough, unspecified (principal); J06.9 Acute upper respiratory infection, unspecified
CPT/HCPCS: 85025; 86140; 87636

== ENCOUNTER 2024-09-26 12:37 | Outpatient (CLI) | payer MEDICAID, SELFPAY ==
--- NOTE | 2024-09-26 12:40 | XR_ITS ---
FINAL REPORT CLINICAL HISTORY: Foot pain heel pain x 3 weeks FINDINGS: LEFT FOOT 4 views of the left foot demonstrate no acute fracture or dislocation. The visualized joint spaces are normally aligned. There is soft tissue edema overlying the dorsum of the foot. IMPRESSION: No acute bony abnormality. Reviewed, Interpreted and Dictated by Alton Nieto MD Transcribed by Teri Do Authenticated and [facility]
== END 2024-09-26 23:59 | disposition home or self-care (01) ==
LOC: RAD 12:38
PROVIDERS: PCP Internal Medicine; Visit Provider Internal Medicine
DX: M79.673 Pain in unspecified foot (principal); M79.89 Other specified soft tissue disorders
CPT/HCPCS: 73630

== ENCOUNTER 2025-01-16 09:59 | Outpatient (CLI) | payer MEDICAID, SELFPAY ==
--- NOTE | 2025-01-16 10:00 | US_ITS ---
FINAL REPORT TECHNIQUE: Ultrasound images of the abdomen were obtained. CLINICAL HISTORY: Abd hernia FINDINGS: The pancreas is obscured by bowel gas. The liver is unremarkable. There is a small echogenic focus with mild associated ringdown artifact. This focus is nondependent, probably due to a small polyp. The common duct 4 mm the right kidney measures 11.1 cm in length and is normal in echogenicity without hydronephrosis. The left kidney measures 12.9 cm in length and is normal in echogenicity without hydronephrosis. The spleen is unremarkable. The aorta is normal in caliber. The vena cava is unremarkable. IMPRESSION: Presumed small gallbladder polyp. Reviewed, Interpreted and Dictated by Alton Nieto MD Transcribed by Jaci Welch Authenticated and [facility]
--- OUTSIDE RECORDS SUMMARY | 2025-01-16 10:38 | XMS_ITS | Patient Health Record ---
Author Organization [facility] Address [address] [place] [address] Care Team Providers Care Diesel Dragline Operator Name Role Phone Emily Saldana Unavailable [phone] Reason For Referral No Information Social History Social History Additional Details Category Social Info Options Details Miscellaneous: Sexually active: SEXUAL AC TIV: Current Problems Problem Type SNOMED Code ICD Code Onset Dates Problem Status W/U Status Risk Notes Problem Gynecological examination abnormal ([id number] ) *Facility Examiner exam with abnormal finding (Code also - abnormal finding(s) (Z01.411) 06/25/19 21 Active confirmed Annual with abnormal findings Problem Amenorrhea (29266769) Absence of menses due to use of contraceptive (N91.2) 06/25/19 21 Active confirmed Missed period Plan Of Treatment No Information Medical (General) History Medical History History ICD Code MENSTR FLOW: Medium anxiety depression SUBOXONE 8-2 MG SUBLINGUAL FILM, SL Surgical History Surgery Date(Month/Year) c section 2019
--- OUTSIDE RECORDS SUMMARY | 2025-01-16 10:38 | XMS_ITS | Encounter Summary ---
Author Organization [employer] ([place], [place], [place], [place]) Address [address] [place] [address] Care Team Providers Care Medical Coding Technician Name Role Phone Kerwin Verde Bernardo Primary Care Provider [phone] Encounter Details Date Type Department Care Team (Late st Contact Info) Description 04/04/2021 Transcribed Document [facility] Family Medicine [facility] [place] [address] ProviderZeina MD [address] [place] [address] Social History Tobacco Use Types Packs/Day Years Used Date Smoking Tobacco: Never Assessed Comments Unknown Sex and Gender Information Value Date Recorded Sex Assigned at Female 05/05/2024 11:22 AM INSULATION INSTALLER Legal Sex Female 7:21 PM CDT Gender Identity Female 05/05/2024 11:22 AM INSULATION INSTALLER Sexual Orientation Straight 05/05/2024 11 :22 AM INSULATION INSTALLER documented as of this encounter Miscellaneous Notes * Cerner Conversion Note - Historical ProviderMD - 04/04/2021 3:02 PM INSULATION INSTALLER UM Authorization Entered On: 04/04/2021 15:03 EST Performed On: 04/04/2021 15:02 EST by Alyssa De Guzman Rn-Utilization Review Primary Insurance Authorization Authorization and Policy Numbers : Insurance 1 Health Plan: [employer] Policy Number: [id number] Authorization Number: Insurance Primary Name : [employer] Policy Number: [id number] Authorization Status-Primary : No precert required Authorization Number-Primary : Auto 5 Number of Days Authorized-Primary : 5 Day(s) Authorized Service Begin Date-Primary : 04/04/2021 EST Authorized Service End Date-Primary : 04/09/2021 EST Historical Authorization Comments-Primary : No Authorization Comments Found Alyssa De Guzman, García-Utilization Review - 04/04/2021 15:02 EST Electronically signed by [facility] Conversion Artificial Candy Maker Cerner at 09/01/2022 10:38 PM CDT documented in this encounter Plan of Treatment Not on file documented as of this encounter Visit Diagnoses Not on filedocumented in this encounter Care Teams Medical Coding Technician Relationship Specialty Start Date End Date Kerwin Verde DO [address] [address] [address] [place] [address] PCP - General Internal Medicine 07/14/24 documented as of this encounter
--- OUTSIDE RECORDS SUMMARY | 2025-01-16 10:38 | XMS_ITS | Encounter Summary ---
Author Organization [employer] ([place], [place], [place], [place]) Address [address] [place] [address] Care Team Providers Care Business Office Director Name Role Phone Kerwin Verde DO Primary Care Provider +1 [phone] Encounter Details Date Type Department Care Team (Late st Contact Info) Description 04/07/2021 Transcribed Document [facility] [place] [facility] [place] [address] ProviderZeina MD [address] [place] [address] Social History Tobacco Use Types Packs/Day Years Used Date Smoking Tobacco: Never Assessed Comments Unknown Sex and Gender Information Value Date Recorded Sex Assigned at Female 05/05/2024 11:22 AM FRUIT SHIPPER Legal Sex Female 7:21 PM CDT Gender Identity Female 05/05/2024 11:22 AM FRUIT SHIPPER Sexual Orientation Straight 05/05/2024 11 :22 AM FRUIT SHIPPER documented as of this encounter Miscellaneous Notes * Cerner Conversion Note - Historical ProviderMD - 04/07/2021 3:14 PM FRUIT SHIPPER Initial Discharge Planning Entered On: 04/07/2021 15:33 EST Performed On: 04/07/2021 15:14 EST by DAWIT RASHID, Deputy Controller Initial Assessment I Previously Documented Living Environment : No qualifying data available. Living Situation : Home Patient Lives With : Dependent Child/Children, Significant other(s) Is the Patient a Caregiver at Home? : Yes For Whom are they a Caregiver? : Child/Children Employment/Vocation : Unemployed Emergency Contact #1 : Louie Louis Emergency Contact #1 Emergency Contact #1 Relationship : dad Emergency Contact #2 : Sachin Gustafson Emergency Contact #2 Emergency Contact #2 Relationship : SO/FOB Does Patient have PCP Listed? : Yes Patient's Home Caregiver Name/Relationship : BOBBY Nguyen Patient's Home Caregiver Medical Durable Power of Aerospace Control [employer] Warning Systems Name : NA Legal Guardian : No Is Guardianship Needed : No DAWIT RASHID Deputy Controller - 04/07/2021 15:14 EST Initial Assessment II Sensory and Motor Deficits : None Services and Community Resources : Specialty clinic, [facility] ([place]), Other: [facility] Services and Community Resources Addl Comments : Pt is in MAT @ [facility] in [place] Does the Patient have a Floor to SNF Benefit? : No DAWIT RASHID Social Worker - 04/07/2021 15:14 EST Discharge Needs I Anticipated Discharge Date : 04/08/2021 EST Anticipated Discharge To, CM : Home with family care Current Home Treatment/Equipment : Current Home Treatment/Equipment No qualifying data available. Post Acute/Home Treatments : Breast pump Documentation Status Complete : Yes DAWIT RASHID Social Worker - 04/07/2021 15:14 EST Discharge Needs II Professional Skilled Services : Professional Skilled Services No qualifying data available. Services and Community Resources : [facility] ([facility]), Other: [facility] Needs Assistance with Transportation : No Discharge Options Discussed with Patient : Discharge transportation, DME, Outpatient services, Substance abuse/mental health Patient Discharge Goal : Home DAWIT RASHID Social Worker - 04/07/2021 15:14 EST Narrative Note Narrative Note : Met w/ this 35 yr old W F, who delivered a baby boy (Baldomero) via repeat on 04/04/21. upon presentation for delivery pt tested positive for both Buprenorhine and THC. Pt is in a MAT drug treatment program at [facility] in [place] (confirmed via phone w/ program, almost obtained copy of pt's JUAN PABLO). Upon rev of records it was discovered that she also tested + for THC (in addition to buprenorphine) on 08/22/20. Based on positive UDS made web referral to CPS, Web ID [id number]. Spent considerable time w/ pt. She also has a 15 mth old son (Guy) at home. She states her pregancies saved my life, I was headed down a dark road and didn't care whether I lived or not . Pt states she loves being a mom and is now engaged to father of both children, Patrick Gustafson, who is also sober and in Recovery himself. She states he is a wonderful provider and works hard so she doesn't have to. She is involved in a Parenting program at [facility] [place] and her 15 mth old goes to daycare there as well. She already has WIC, was involved in [facility] in past when she was using and trying to get everything I could for free and found it very helpful. She is not now, stating she wants to stop using the system and take care of things herself. Suggested she get back in [facility], that they are there to help and it is not using the system as she suggested. Infant was taken to NICU at but later transferred back to Nursery where he has remained. his JOSÉ score was 9 this AM per his RN, Ritika. He is very stiff w/ tremors, has resp rate of 62, mottling, irritable. He is also in a bili blanket and seems to love it, stopped crying as soon as mom placed him in it and turned it on. She states her other son had JOSÉ as well but it perfect now . She is being DC'd today but states she will remain in-house to provide Care by Parent . Stets she has everything needed for infant and denies any needs. SW will cont to follow while is in-house. DAWIT RASHID, Deputy Controller - 04/07/2021 15:14 EST Electronically signed by [facility] Conversion Pressing Department Supervisor Cerner at 09/01/2022 10:44 PM CDT documented in this encounter Plan of Treatment Not on file documented as of this encounter Visit Diagnoses Not on filedocumented in this encounter Care Teams Business Office Director Relationship Specialty Start Date End Date Kerwin Verde DO [address] [facility] [address] [place] [address] PCP - General Internal Medicine 07/14/24 documented as of this encounter
--- OUTSIDE RECORDS SUMMARY | 2025-01-16 10:38 | XMS_ITS | Encounter Summary ---
Author Organization [employer] ([place], [place], [place], [place]) Address [address] [place] [address] Care Team Providers Care Coding Specialist Name Role Phone Kerwin Verde DO Primary Care Provider [phone] [phone] Reason for Visit * Reason Comments Medication Refill Encounter Details Date Type Department Care Team (Late st Contact Info) Description 01/06/2023 Refill [facility] Maternal Medicine [address] [place] [address] Patsy Nunes DO [address] [place] [address] Social History Tobacco Use Types Packs/Day Years Used Date Smoking Tobacco: Every Day Cigarettes 0.5 23 Smokeless Tobacco: Never Alcohol Use Standard Drinks/Week Comments Never 0 (1 standard drink = 0.6 oz pur e alcohol) Overall Financial Resource Strain (CARDIA) Answe r Date Recorded How hard is it for you to pa y for the very basics like food, housing, medical care, and heating? Somewhat hard 08/20/2022 Hunger Vital Sign Answer Date Recorded Within the past 12 months, y ou worried that your food would run out before you got the money to buy more. Never true 08/21/19 23 Within the past 12 months, t he food you bought just didn't last and you didn't have money to get more. Never true 08/20/2022 PRAPARE - Transportation Answer Date Re corded In the past 12 months, has l ack of transportation kept you from medical appointments or from getting medications? No 10/11/2022 Lack of Transportation (Non-Medical) Not on file 10/11/2022 Comments No Sex and Gender Information Value Date Recorded Sex Assigned at Female 05/05/2024 11:22 AM SAMPLE BUILDER Legal Sex Female 7:21 PM CDT Gender Identity Female 05/05/2024 11:22 AM SAMPLE BUILDER Sexual Orientation Straight 05/05/2024 11 :22 AM SAMPLE BUILDER documented as of this encounter Functional Status * Are you deaf or do you have serious difficulty hearing? Answer Date of Assessment Author No 10/11/2022 11:30 AM Leena Tariq RN * Are you blind or do you have serious difficulty seeing, even when wearing glasses? Answer Date of Assessment Author No 10/11/2022 11:30 AM Leena Tariq RN * Do you have serious difficulty walking or climbing stairs? Answer Date of Assessment Author No 10/11/2022 11:30 AM Leena Tariq RN * Do you have serious difficulty dressing or bathing? Answer Date of Assessment Author No 10/11/2022 11:30 AM Leena Tariq RN * Because of a physical, mental, or emotional condition, do you have serious difficulty doing errandsalone such as visiting the doctor? Answer Date of Assessment Author No 10/11/2022 11:30 AM Leena Tariq RN documented as of this encounter Mental Status * Because of a physical, mental, or emotional condition, do you have serious difficulty concentrating, remembering, or making decisions? (5 years old or older) Answer Entry Date Author No 10/11/2022 11:30 AM Leena Tariq RN documented in this encounter Plan of Treatment Not on file documented as of this encounter Visit Diagnoses Not on filedocumented in this encounter Care Teams Coding Specialist Relationship Specialty Start Date End Date Kerwin Verde DO [address] [place] [facility] [address] [place] [id number] PCP - General Internal Medicine 07/14/24 documented as of this encounter
--- OUTSIDE RECORDS SUMMARY | 2025-01-16 10:38 | XMS_ITS | Encounter Summary ---
Author Organization [employer] ([place], [place], [place], [place]) Address [address] [place] [address] Care Team Providers Care Hydrator Operator Name Role Phone Kerwin Verde Bernardo Primary Care Provider [phone] [phone] Encounter Details Date Type Department Care Team (Late st Contact Info) Description 04/07/2021 Transcribed Document [facility] [place] [facility] [address] ProviderZeina MD [address] [place] [address] Social History Tobacco Use Types Packs/Day Years Used Date Smoking Tobacco: Never Assessed Comments Unknown Sex and Gender Information Value Date Recorded Sex Assigned at Female 05/05/2024 11:22 AM PUMPER GAUGER Legal Sex Female 7:21 PM CDT Gender Identity Female 05/05/2024 11:22 AM PUMPER GAUGER Sexual Orientation Straight 05/05/2024 11 :22 AM PUMPER GAUGER documented as of this encounter Miscellaneous Notes * Cerner Conversion Note - Historical ProviderMD - 04/07/2021 12:41 PM PUMPER GAUGER Nursing Discharge Summary Entered On: 04/07/2021 12:43 EST Performed On: 04/07/2021 12:41 EST by ELGIN RUSSELL RN Discharge Documentation Discharge Date/Time : 04/07/2021 12:00 EST Patient Disposition, General : Discharge Discharge To : Home with ambulatory/outpatient follow-up Mode Of Departure, General Discharge : Private vehicle, Wheelchair Accompanied By, Discharge : Significant other IV Discontinued : Yes Personal Belongings With Patient : No personal belongings to return Pt's Own Supply of Medications Returned : No patient supply of medications to return Prescriptions Given to Patient : Electronically sent Medications Given to Patient : No Discharge Instructions Reviewed With, Opportunity For Questions Given : Patient Patient Education Completed : Yes Teaching Method : Printed materials Teaching Evaluation : Verbalizes understanding ELGIN RUSSELL, RN - 04/07/2021 12:41 EST Electronically signed by Interface, [facility] Conversion Technology Methodology Consultant Cerner at 09/01/2022 10:30 PM CDT documented in this encounter Plan of Treatment Not on file documented as of this encounter Visit Diagnoses Not on filedocumented in this encounter Care Teams Hydrator Operator Relationship Specialty Start Date End Date Kerwin Verde DO [address] [facility] [address] [place] [address] PCP - General Internal Medicine 07/14/24 documented as of this encounter
--- OUTSIDE RECORDS SUMMARY | 2025-01-16 10:38 | XMS_ITS | Encounter Summary ---
Author Organization [employer] ([place], [place], [place], [place]) Address [address] [place] [address] Care Team Providers Care Cut Lace Machine Operator Name Role Phone Kerwin Verde Bernardo Primary Care Provider [phone] [phone] Encounter Details Date Type Department Care Team (Late st Contact Info) Description 04/05/2021 Transcribed Document [facility] [place] [address] ProviderZeina MD [address] [place] [address] Social History Tobacco Use Types Packs/Day Years Used Date Smoking Tobacco: Never Assessed Comments Unknown Sex and Gender Information Value Date Recorded Sex Assigned at Female 05/05/2024 11:22 AM NECK CUTTER Legal Sex Female 7:21 PM CDT Gender Identity Female 05/05/2024 11:22 AM NECK CUTTER Sexual Orientation Straight 05/05/2024 11 :22 AM NECK CUTTER documented as of this encounter Miscellaneous Notes * Cerner Conversion Note - Historical ProviderMD - 04/05/2021 5:00 AM NECK CUTTER Chart Check - Review Order Profile Entered On: 04/05/2021 4:17 EST Performed On: 04/05/2021 5:00 EST by Juli Julian RN-PATIENT CARE BEDSIDE NON-EXEMPT Chart Check Powerplans Initiated/Discontinued as Appropriate : Yes All Active Orders Reviewed : Yes Juli Julian RN-PATIENT CARE BEDSIDE NON-EXEMPT - 04/05/2021 4:16 EST documented in this encounter Plan of Treatment Not on file documented as of this encounter Visit Diagnoses Not on filedocumented in this encounter Care Teams Cut Lace Machine Operator Relationship Specialty Start Date End Date Kerwin Verde DO [address] [facility] [address] [place] [id number] PCP - General Internal Medicine 07/14/24 documented as of this encounter
--- OUTSIDE RECORDS SUMMARY | 2025-01-16 10:38 | XMS_ITS | Encounter Summary ---
Author Organization [employer] ([place], [place], [place], [place]) Address [address] [place] [address] Care Team Providers Care Rawhide Bone Roller Name Role Phone Kerwin Verde DO Primary Care Provider [phone] [phone] Reason for Visit * Reason Comments Medication Refill Encounter Details Date Type Department Care Team (Late st Contact Info) Description 01/05/2023 Refill [facility] Maternal Medicine [address] [place] [address] Patsy Nunes DO [address] [place] [address] Gestational diabetes mellitus (GDM) in third trimester controlled on oral hypoglycemic drug Social History Tobacco Use Types Packs/Day Years [...] Sex Assigned at Female 05/05/2024 11:22 AM SEPARATOR TENDER Legal Sex Female 7:21 PM CDT Gender Identity Female 05/05/2024 11:22 AM SEPARATOR TENDER Sexual Orientation Straight 05/05/2024 11 :22 AM SEPARATOR TENDER documented as of this encounter Functional Status [...] documented as of this encounter Visit Diagnoses Diagnosis Gestational diabetes mellitus (GDM) in third trimester controlled on oral hypoglycemic drug documented in this encounter Care Teams Rawhide Bone Roller Relationship Specialty Start Date End Date Kerwin Verde DO [address] [place] [facility] [address] [place] [address] PCP - General Internal Medicine 07/14/24 documented as of this encounter
--- OUTSIDE RECORDS SUMMARY | 2025-01-16 10:38 | XMS_ITS | Encounter Summary ---
Author Organization [employer] ([place], [place], [place], [place]) Address [address] [place] [address] Care Team Providers Care Flying I Instructor Name Role Phone Kerwin Verde DO Primary Care Provider [phone] [phone] Encounter Details Date Type Department Care Team (Late st Contact Info) Description 04/07/2021 Transcribed Document [facility] [place] [facility] [place] [address] ProviderZeina MD [facility] [place] [address] Social History Tobacco Use Types Packs/Day Years Used Date Smoking Tobacco: Never Assessed Comments Unknown Sex and Gender Information Value Date Recorded Sex Assigned at Female 05/05/2024 11:22 AM SOCIAL SCIENCE TEACHER Legal Sex Female 7:21 PM CDT Gender Identity Female 05/05/2024 11:22 AM SOCIAL SCIENCE TEACHER Sexual Orientation Straight 05/05/2024 11 :22 AM SOCIAL SCIENCE TEACHER documented as of this encounter Miscellaneous Notes * Cerner Conversion Note - Historical ProviderMD - 04/07/2021 11:38 AM SOCIAL SCIENCE TEACHER Patient: ROBYN LOUIS Age: 35 Years Sex: Female : 1985 Admit Date 04/04/2021 09:48 Discharge Date 04/07/2021 12:00 Primary Care Provider LG ORDAZ DO Discharge Diagnosis Vacuum-assisted delivery, delivered, current hospitalization 04/07/2021 O82 ICD-10-CM Single live 04/07/2021 Z37.0 ICD-10-CM Maternal care for scar from previous delivery 04/07/2021 O34.219 ICD-10-CM 39 weeks gestation of 04/07/2021 Z3A.39 ICD-10-CM Breastfed and bottle fed infant 04/07/2021 Z78.9 ICD-10-CM Procedures Vacuum assist repeat c/s Studies H&H 10.9/33.2 Plts 487 Reason for Hospitalization scheduled repeat c/s Hospital Course c/s with PO pp care Vital Signs Oxygen Settings (Last) VSS, Afebrile Room Air. Physical Exam Pt has no c/o today, denies s/s PPH or PPD. Pt states she is ambulating and voiding without difficulty. Pt further denies chest pain, SOA, n/v/d. Pt is breast feeding and states baby is doing well. General: wd/wn, responds appropriately HEENT: normocephalic, PERRL, no scotoma Neuro: AA&Ox4, in NAD, no weakness or numbness CV: RRR Resp: CTA, b/l,non labored Breasts: SNT ABD: SNT, uterus is firm at 1 below umbilicus Incision: CDI, covered with steri strips GI/: no n/v/d, small lochia, no dysuria MS: MAEW, no b/l lower extremity edema or calf pain Integ: no rashes, lesions or bruising Psych: nml mood and affect Discharge Disposition Home Discharge Follow Up LG TAM - 09:20 AM Discharge Medications (8) Active CeleXA 10 mg oral tablet , Oral, Daily Colace 100 mg oral capsule 100 mg = 1 Cap, Oral, TID hydrocortisone-pramoxine 1%-1% rectal cream 1 Application, PRN, Rectal, Q4H ibuprofen 800 mg oral tablet 800 mg = 1 Tab, Oral, Q8H ibuprofen 800 mg oral tablet 800 mg = 1 Tab, Oral, Q8H lanolin topical ointment , PRN, Topical, See Comment Percocet 5/325 oral tablet 1 Tab, PRN, Oral, Q6H Suboxone 4 mg-1 mg sublingual film , SubLINgual, Daily Code Status No Code Status Order on Record Condition on Discharge Stable Consulting Physicians No Consulting Physician on Record. Current Diet Order No qualifying data available. Patient Discharge Summary Orders F/U sooner if problems Follow Up Labs/Studies None Pending Labs No Labs on Record Time Spent on Discharge < 30 minutes documented in this encounter Plan of Treatment Not on file documented as of this encounter Visit Diagnoses Not on filedocumented in this encounter Care Teams Flying I Instructor Relationship Specialty Start Date End Date Kerwin Verde DO [address] [facility] [address] [place] [id number] PCP - General Internal Medicine 07/14/24 documented as of this encounter
--- OUTSIDE RECORDS SUMMARY | 2025-01-16 10:38 | XMS_ITS | Encounter Summary ---
Author Organization [employer] ([place], [place], [place], [place]) Address [address] [place] [address] Care Team Providers Care Machinist First Class Name Role Phone Kerwin Verde Bernardo Primary Care Provider [phone] [phone] Encounter Details Date Type Department Care Team (Late st Contact Info) Description 04/06/2021 Transcribed Document [facility] [place] [address] ProviderZeina MD [address] [place] [address] Social History Tobacco Use Types Packs/Day Years Used Date Smoking Tobacco: Never Assessed Comments Unknown Sex and Gender Information Value Date Recorded Sex Assigned at Female 05/05/2024 11:22 AM INSHORE UNDERSEA WARFARE OFFICER Legal Sex Female 7:21 PM CDT Gender Identity Female 05/05/2024 11:22 AM INSHORE UNDERSEA WARFARE OFFICER Sexual Orientation Straight 05/05/2024 11 :22 AM INSHORE UNDERSEA WARFARE OFFICER documented as of this encounter Miscellaneous Notes * Cerner Conversion Note - Historical ProviderMD - 04/06/2021 5:00 AM INSHORE UNDERSEA WARFARE OFFICER Chart Check - Review Order Profile Entered On: 04/06/2021 5:43 EST Performed On: 04/06/2021 5:00 EST by Juli Julian RN-PATIENT CARE BEDSIDE NON-EXEMPT Chart Check Powerplans Initiated/Discontinued as Appropriate : Yes All Active Orders Reviewed : Yes Juli Julian RN-PATIENT CARE BEDSIDE NON-EXEMPT - 04/06/2021 5:43 EST documented in this encounter Plan of Treatment Not on file documented as of this encounter Visit Diagnoses Not on filedocumented in this encounter Care Teams Machinist First Class Relationship Specialty Start Date End Date Kerwin Verde DO [address] [facility] [address] [place] [id number] PCP - General Internal Medicine 07/14/24 documented as of this encounter
--- OUTSIDE RECORDS SUMMARY | 2025-01-16 10:38 | XMS_ITS | Encounter Summary ---
Author Organization [employer] ([place], [place], [place], [place]) Address [address] [place] [address] Care Team Providers Care Lactation Consultant Name Role Phone Kerwin Verde DO Primary Care Provider [phone] [phone] Reason for Visit * Reason Comments Medication Refill Encounter Details Date Type Department Care Team (Late st Contact Info) Description 01/07/[address] [facility] Maternal Medicine [address] [place] [address] Patsy Nunes DO [address] [place] [address] Social History Tobacco Use Types [...] Sex Assigned at Female 05/05/2024 11:22 AM MAIL DELIVERER Legal Sex Female 7:21 PM CDT Gender Identity Female 05/05/2024 11:22 AM MAIL DELIVERER Sexual Orientation Straight 05/05/2024 11 :22 AM MAIL DELIVERER documented as of this encounter Functional Status [...] on filedocumented in this encounter Care Teams Lactation Consultant Relationship Specialty Start Date End Date Kerwin Verde DO [address] [place] [facility] [address] [place] [id number] PCP - General Internal Medicine 07/14/24 documented as of this encounter
--- OUTSIDE RECORDS SUMMARY | 2025-01-16 10:38 | XMS_ITS | Encounter Summary ---
Author Organization [employer] ([place], [place], [place], [place]) Address [address] [place] [address] Care Team Providers Care Payroll And Benefits Specialist Name Role Phone Kerwin Verde DO Primary Care Provider [phone] [phone] Reason for Visit * Reason Comments Medication Refill Encounter Details Date Type Department Care Team (Late st Contact Info) Description 02/08/2023 Refill [facility] Maternal Medicine [address] [place] [address] Patsy Nunes DO [address] [place] [address] Social History Tobacco Use Types [...] Sex Assigned at Female 05/05/2024 11:22 AM FINISH SANDER Legal Sex Female 7:21 PM CDT Gender Identity Female 05/05/2024 11:22 AM FINISH SANDER Sexual Orientation Straight 05/05/2024 11 :22 AM FINISH SANDER documented as of this encounter Functional Status [...] on filedocumented in this encounter Care Teams Payroll And Benefits Specialist Relationship Specialty Start Date End Date Kerwin Verde DO [address] [place] [facility] [address] [place] [id number] PCP - General Internal Medicine 07/14/24 documented as of this encounter
--- OUTSIDE RECORDS SUMMARY | 2025-01-16 10:38 | XMS_ITS | Encounter Summary ---
Author Organization [employer] ([place], [place], [place], [place]) Address [address] [place] [address] Care Team Providers Care Communications Associate Name Role Phone Kerwin Verde DO Primary Care Provider [phone] Reason for Visit * Reason Comments Medication Refill Encounter Details Date Type Department Care Team (Late st Contact Info) Description 12/01/2022 Refill [facility] RUBBER MOLD MAKER - [employer] [address] [place] [address] Rylie Wilson APRN [address] [place] [address] Encounter for smoking cessation counseling Social History Tobacco Use Types Packs/Day Years [...] Sex Assigned at Female 05/05/2024 11:22 AM MARKETING OPERATIONS ASSOCIATE Legal Sex Female 7:21 PM CDT Gender Identity Female 05/05/2024 11:22 AM MARKETING OPERATIONS ASSOCIATE Sexual Orientation Straight 05/05/2024 11 :22 AM MARKETING OPERATIONS ASSOCIATE documented as of this encounter Functional Status [...] as of this encounter Visit Diagnoses Diagnosis Encounter for smoking cessation counseling documented in this encounter Care Teams Communications Associate Relationship Specialty Start Date End Date Kerwin Verde DO [address] [facility] [address] [place] [id number] PCP - General Internal Medicine 07/14/24 documented as of this encounter
--- OUTSIDE RECORDS SUMMARY | 2025-01-16 10:38 | XMS_ITS | Encounter Summary ---
Author Organization [employer] ([place], [place], [place], [place]) Address [address] [place] [address] Care Team Providers Care Chief Deputy Court Clerk Name Role Phone Kerwin Verde Bernardo Primary Care Provider [phone] [phone] Encounter Details Date Type Department Care Team (Late st Contact Info) Description 04/05/2021 Transcribed Document [facility] [facility] [place] [address] ProviderZeina MD [address] [place] [address] Social History Tobacco Use Types Packs/Day Years Used Date Smoking Tobacco: Never Assessed Comments Unknown Sex and Gender Information Value Date Recorded Sex Assigned at Female 05/05/2024 11:22 AM STOCKING INSPECTOR Legal Sex Female 7:21 PM CDT Gender Identity Female 05/05/2024 11:22 AM STOCKING INSPECTOR Sexual Orientation Straight 05/05/2024 11 :22 AM STOCKING INSPECTOR documented as of this encounter Miscellaneous Notes * Cerner Conversion Note - Historical ProviderMD - 04/05/2021 11:05 PM STOCKING INSPECTOR Pet Caregiver Details Entered On: 04/05/2021 23:05 EST Performed On: 04/05/2021 23:05 EST by Juli Julian RN-PATIENT CARE BEDSIDE NON-EXEMPT Order Details Transport Mode Order Detail : Ambulatory Isolation Precautions Order Detail : Standard Precautions Order Detail : 0 IV Order Detail : 0 Oxygen Order Detail : 0 Nurse Collect Order Detail : 0 Lift/Transfer : Independent Central Line Order Detail : No Room Service : Appropriate Arterial Line : No Patient Needs Meds Crushed/Liquid : No Juli Julian RN-PATIENT CARE BEDSIDE NON-EXEMPT - 04/05/2021 23:05 EST documented in this encounter Plan of Treatment Not on file documented as of this encounter Visit Diagnoses Not on filedocumented in this encounter Care Teams Chief Deputy Court Clerk Relationship Specialty Start Date End Date Kerwin Verde DO [address] [address] [address] [place] [address] PCP - General Internal Medicine 07/14/24 documented as of this encounter
--- OUTSIDE RECORDS SUMMARY | 2025-01-16 10:38 | XMS_ITS | Encounter Summary ---
Author Organization [employer] ([place], [place], [place], [place]) Address [address] [place] [address] Care Team Providers Care Spline Rolling Machine Job Setter Name Role Phone Kerwin Vrede DO Primary Care Provider [phone] [phone] Reason for Visit * Reason Comments Medication Refill Encounter Details Date Type Department Care Team (Late st Contact Info) Description 01/22/2023 Refill [facility] Maternal Medicine [address] [place] [address] Patsy Nunes DO [address] [place] [address] Social History Tobacco Use Types [...] Sex Assigned at Female 05/05/2024 11:22 AM BUCKLE AND BUTTON MAKER Legal Sex Female 7:21 PM CDT Gender Identity Female 05/05/2024 11:22 AM BUCKLE AND BUTTON MAKER Sexual Orientation Straight 05/05/2024 11 :22 AM BUCKLE AND BUTTON MAKER documented as of this encounter Functional Status [...] on filedocumented in this encounter Care Teams Spline Rolling Machine Job Setter Relationship Specialty Start Date End Date Kerwin Verde DO [address] [facility] [address] [place] [id number] PCP - General Internal Medicine 07/14/24 documented as of this encounter
--- OUTSIDE RECORDS SUMMARY | 2025-01-16 10:38 | XMS_ITS | Clinical Summary ---
Author Organization [employer] ([place], [place], [place], [place]) Address [address] [place] [address] Care Team Providers Care Sewing Machine Operator Paper Bags Name Role Phone Mehreen Kerwin Chang Primary Care Provider [phone] [phone] Allergies Active Allergy Reactions Criticality Noted Date Comments Tramadol Anaphylaxis High 10/16/2019 Venom-Honey Bee Swelling High 10/11/2022 Medications buprenorphine-n aloxone (SUBOXONE) 8-[address] 2 tablets under the tongue daily. 3 Active vitamin w/calcium-iron- folate ( PLUS) 27 mg iron- 1 mg tab Take 1 tablet by mouth daily. Active Vyvanse 10 mg cap capsule Take 1 capsule (10 mg total) by mouth every morning. 4 Active Vyvanse 20 mg capsule Take 1 capsule (20 mg total) by mouth every morning. 4 Active amitriptyline (ELAVIL) 25 MG tablet Take 1 tablet (25 mg total) by mouth nightly. Active oxyCODONE-aceta minophen (PERCOCET) 5-325 mg per tabletIndicatio ns:Post-op pain Take 1 tablet by mouth every 6 (six) hours as needed for pain for up to 12 doses Look-alike/So und-alike medication. Max Daily Amount: 4 tablets 12 tablet 5 Active naloxone (NARCAN) 4 mg/actuation spry Administer 1 spray into affected nostril(s) as needed for opioid reversal. 1 each 5 Active buprenorphine-n aloxone (SUBOXONE) 2-[address] under the tongue daily This medication has the potential to cause dental problems. After the medication has completely dissolved in your mouth, gently rinse your teeth and gums with water and then swallow, and also wait at least 1 ho. Active gabapentin (NEURONTIN) 800 MG tablet Take 1 tablet (800 mg total) by mouth 3 (three) times daily. Max Daily Amount: 2,400 mg Active clotrimazole (LOTRIMIN) 1 % creamIndication s:Skin yeast infection Apply topically 2 (two) times daily. 30 g 07/21/19 26 Active Active Problems Problem Noted Date Diagnosed Date care following delivery 10/2024 Assessment & Plan (07/20/2024 7:18 PM EST): Post care Good pain management Staple removal Suki corpis around incision - Rx Lotrimin as dir FU in five weeks Bilateral salpingectomy for contraception Continue sober living - daily Suboxine delivery delivered 07/17/2024 Overview (07/17/2024): Post op day 3 Pain management support (RAJWINDER now limiting due to suboxone use and condition) Increase diet and activity Probable discharge day 4 Previous section 07/14/2024 Single live 07/14/2024 Polyhydramnios in first trim maria teresa, single or unspecified fetus 06/28/2024 Assessment & Plan (06/28/2024 11:48 AM EST): Poly by MVP. Weekly US scheduled, plan delivery at 38-39. Poor growth affecting management of mother in second trimester, single or unspecified fetus 04/26/2024 Assessment & Plan (05/31/2024 6:05 PM EST): growth restriction by AC criteria Assessment & Plan (04/26/2024 11:12 AM EST): Follow up growth next week with MFM. Encounter for ultrasound to assess growth 03/28/2024 Anxiety and depression 03/01/2024 Overview (07/17/2024): On Lexapro and stable Monitor for post depression Assessment & Plan (07/12/2024 12:14 PM EST): On meds stable Assessment & Plan (07/06/2024 4:43 PM EST): Stable Assessment & Plan (05/31/2024 6:03 PM EST): Stable on medication Assessment & Plan (04/26/2024 11:11 AM EST): Stable on current medications. Assessment & Plan (03/01/2024 8:46 PM EDT): No suicidal ideation On Lexapro 20 mg daily Carpal tunnel syndrome during 03/01/20 24 Assessment & Plan (03/01/2024 8:47 PM EDT): Gabapentin 30 mg twice daily ADHD 01/26/2024 Assessment & Plan (07/12/2024 12:14 PM EST): On Vyvanse Assessment & Plan (05/31/2024 6:02 PM EST): On Vyvanse M US surveillance Assessment & Plan (03/01/2024 8:45 PM EDT): On Vyvanse 30 mg daily Assessment & Plan (01/26/2024 11:10 AM EDT): Doing well on current dose of Vyvanse (30 mg daily). Neuropathy 01/26/2024 Overview (07/17/2024): Post op on neurontin Assessment & Plan (01/26/2024 11:11 AM EDT): Secondary to nerve damage per patient. She is ok on current dose of Neurontin, surgery on hold secondary to surgery. History of polyhydramnios 01/26/2024 Assessment & Plan (05/31/2024 6:04 PM EST): MFM surveillance with uncertain fet al viability, single or unspecified fetus 01/12/2024 Chest rales 10/09/2022 Overview (10/09/2022): Anterior and posterior Ordered nebulizer, CXR and antibiotics Incentive spirometer Monitor for leukocytosis and fever Suboxone maintenance treatme nt complicating , antepartum, second trimester 09/30/2022 Assessment & Plan (05/31/2024 6:13 PM EST): On suboxone Assessment & Plan (05/15/2024 7:26 PM EST): Continued care MFM surveillance Assessment & Plan (03/01/2024 8:42 PM EDT): Continue care and recovery On Suboxone Assessment & Plan (01/26/2024 11:06 AM EDT): Suboxone 8 mg BID, risks and recommendations discussed. Encounter for monitoring Subutex maintenance the saray 09/21/2022 Assessment & Plan (05/31/2024 6:03 PM EST): On Suboxone MFM surveillance Assessment & Plan (03/01/2024 8:46 PM EDT): Continue care and treatment with providers Suboxone 8 mg twice a day Encounter for smoking cessation counseling 09/03 Assessment & Plan (07/12/2024 12:15 PM EST): Encourage avoidance and nicotine patch Assessment & Plan (05/31/2024 6:03 PM EST): Nicorette gum Assessment & Plan (03/01/2024 8:49 PM EDT): Smoking cessation and using Nicorette gum Assessment & Plan (09/03/2022 4:16 PM EDT): Pt reports the patches do not help with the oral fixation related to smoking and would like to try nicotine gum. Prescription sent. History of gestational diabe иван in prior , currently in second trimester 09/03/2022 Assessment & Plan (04/26/2024 11:11 AM EST): Testing at next visit. Assessment & Plan (03/01/2024 8:48 PM EDT): Advised early 1 hour GTT by maternal- medicine BMI 35 Encouraged Assessment & Plan (01/26/2024 11:07 AM EDT): Metformin only with her most recent , recommend early GTT at next visit. Assessment & Plan (09/30/2022 10:27 AM EDT): BS well controlled on BID dosing. Recommended no Metformin on the morning of delivery. Assessment & Plan (09/23/2022 10:51 AM EDT): Medication adjustments on Wednesday. Assessment & Plan (09/03/2022 4:20 PM EDT): Start checking fasting BG upon waking, continue log and start metformin per MFM guidelines. complicated by subutex maintenance, an tepartum 08/17/2022 Assessment & Plan (07/12/2024 12:16 PM EST): Daily medication as dir with history of section, ante 08/17/2022 Assessment & Plan (07/12/2024 12:16 PM EST): Repeat scheduled 07/14/2024 and bilateral salpingectomy Assessment & Plan (07/06/2024 4:44 PM EST): Repeat delivery 07/14/24 Assessment & Plan (06/28/2024 11:47 AM EST): Prior x 3, repeat planned with risk reducing salpingectomy. Assessment & Plan (05/31/2024 6:04 PM EST): History of delivery X 3 Assessment & Plan (04/26/2024 11:10 AM EST): Repeat planned with risk reducing salpingectomy. Consent today. Assessment & Plan (04/11/2024 1:54 PM EST): Repeat planned. Assessment & Plan (01/26/2024 11:03 AM EDT): Plan for CS at 36-38 weeks given history of prior CS x 3. Assessment & Plan (09/30/2022 10:28 AM EDT): Repeat CS scheduled for next week at 39 weeks. Assessment & Plan (09/23/2022 10:50 AM EDT): Repeat planned. Assessment & Plan (09/03/2022 4:17 PM EDT): Will discuss scheduling c/s date with next visit. Assessment & Plan (08/17/2022 7:08 PM EDT): Repeat planned. Multigravida of advanced maternal age in third t rimester 08/17/2022 Overview (07/17/2024): Monitor pain relief and vital signs post op Assessment & Plan (07/06/2024 4:43 PM EST): MFM surveillance Assessment & Plan (06/28/2024 11:49 AM EST): Reassuring testing today with BPP 8/8. Assessment & Plan (05/15/2024 7:25 PM EST): Maternal medicine US and surveillance Assessment & Plan (04/11/2024 2:02 PM EST): Follow up US scheduled today. Assessment & Plan (03/01/2024 8:48 PM EDT): Ultrasound MFM today-Limited views of anatomy secondary to size See report on 03/01/2024 and recommendations In regards to low fraction and need to repeat today See full report in chart Milligrams of ASA daily Plan serial ultrasounds to evaluate growth every 3 to 4 weeks Weekly BPP at 32 weeks Assessment & Plan (01/26/2024 11:15 AM EDT): Mat 21 with labs today. Assessment & Plan (09/23/2022 10:51 AM EDT): Weekly US. Assessment & Plan (09/03/2022 4:16 PM EDT): Weekly testing, BPP 8 today Assessment & Plan (08/17/2022 7:13 PM EDT): BPP 02/23 today with polyhydramnios and elevated dopplers, weekly testing recommended. Resolved Problems Problem Noted Date Diagnosed Date Resolved Date 38 weeks gestation of 07/14/2024 07/20/2024 Third trimester 06/28/2024 Assessment & Plan (06/28/2024 11:48 AM EST): GBS today. Encounter for anatomic survey 02/29/2024 03/28/2024 Second trimester 01/26/2024 0 05/31/2024 Assessment & Plan (03/01/2024 8:46 PM EDT): care Anatomy ultrasound Decreased tobacco use Assessment & Plan (01/26/2024 11:16 AM EDT): Labs and teaching today. Flu recommended and declined. Encounter for visit 10/15/2022 01/26/2024 Assessment & Plan (10/15/2022 9:40 AM EDT): Pt here today for incision check. [place] removed, incision clean, dry, and intact. Erythema noted around staple sites. Pt educated on incision care. Vaginal bleeding is minimal, and pt reports she is doing well, still in inpatient. Plan to follow up in 5 weeks for PPV and Nexplanon insertion delivery delivered 10/09/2022 01/26/2024 Productive cough 10/09/2022 07/20/2024 Overview (10/09/2022): White sputum Collect culture Assessment & Plan (03/01/2024 8:42 PM EDT): resolved Polyhydramnios affecting pre gnancy in third trimester 10/08/2022 10/09/2022 36 weeks gestation of 09/21/2022 09/30/2022 35 weeks gestation of 09/16/2022 09/30/2022 Diet controlled gestational diabetes mellitus (GDM) in third trimester 09/09/2022 09/23/2022 Third trimester 08/17/2022 Assessment & Plan (09/03/2022 4:18 PM EDT): Pt doing well. Good FM, denies VB/LOF/CTX. Weekly testing with MFM. Follow up in 2 weeks for GENNY Immunizations Name Administration Dates Next Due Hepatitis A Adult 03/30/2019,03/30/2018 Hepatitis B 12/22/2002 MMR VACCINE (MMR II, PRIORIX) (IMM44) 02/11/1998 Td 7+ years, (TDVAX) 2 Lf te tanus toxoid preservative free 12/22/2002 Tdap 03/20/2021 Family History Medical History Relation Name Comments No Known Problem Father No Known Problem Mother Cancer Other Paternal Uncle Diabetes Other Paternal Uncle Relation Name Status Comments Father Alive Mother Alive Other Paternal Uncle T21 Social History Tobacco Use Types Packs/Day Years Used Date Smoking Tobacco: Every Day Cigarettes 0.5 23 Smokeless Tobacco: Never Tobacco Cessation:Ready to Q uit: Not Asked; Counseling Given: Not Answered Comments:Delta 8 vape pen Alcohol Use Standard Drinks/Week Comments Never 0 (1 standard drink = 0.6 oz pur e alcohol) Overall Financial Resource Strain (CARDIA) Answe r Date Recorded How hard is it for you to pa y for the very basics like food, housing, medical care, and heating? Not hard at all 03/03/2024 Hunger Vital Sign Answer Date Recorded Within the past 12 months, y ou worried that your food would run out before you got the money to buy more. Never true 03/03/20 24 Within the past 12 months, t he food you bought just didn't last and you didn't have money to get more. Never true 03/03/2024 PRAPARE - Transportation Answer Date Re corded In the past 12 months, has l ack of transportation kept you from medical appointments or from getting medications? No 02/14 In the past 12 months, has l ack of transportation kept you from meetings, work, or from getting things needed for daily living? No 03/03/2024 Housing Stability Vital Sign Answer Jonas e Recorded In the last 12 months, was t here a time when you were not able to pay the mortgage or rent on time? No 03/03/2024 Number of Times Moved in the Last Year Not on fi le 03/03/2024 Homeless in the Last Year Not on file 2023 Utilities Answer Date Recorded In the past 12 months, has t he electric, gas, oil, or water company threatened to shut off services in your home? No 07/15/2024 Interpersonal Safety Answer Date Record ed How often does anyone, bridger carrillo family and friends, physically hurt you? Never 07/15/2024 How often does anyone, bridger carrillo family and friends, insult or talk down to you? Never 07/15/2024 How often does anyone, jadonmaday carrillo family and friends, threaten you with harm? Never 07/15/2024 How often does anyone, bridger gerardo family and friends, scream or curse at you? Never 07/15/2024 Housing Stability Answer Date Recorded What is your living situation today? I have a [facility] place to live 07/15/[address] you li ve. Do you have problems with any of the following? None of the above 07/15/2024 Food Insecurity Answer Date Recorded Within the past 12 months, y ou worried that your food would run out before you got money to buy more. Never true 07/15/2024 Within the past 12 months, t he food you bought just didn't last and you didn't have money to get more. Never true 07/15/2024 Transportation Needs Answer Date Record ed In the past 12 months, has l ack of reliable transportation kept you from medical appointments, meetings, work or from getting things needed for daily living? No 07/15/2024 Financial Resource Strain Answer Date R ecorded How hard is it for you to pa y for the very basics like food, housing, medical care, and heating? Would you say it is: Not hard at all 07/15/2024 Employment Answer Date Recorded Do you want help finding or keeping work or a job? I do not need or want help 07/15/2024 Family and Community Support Answer Jonas e Recorded If for any reason you need h elp with day-to-day activities such as bathing, preparing meals, shopping, managing finances, etc., do you get the help you need? I don't need any help 07/15/2024 Feeling Lonely or Isolated 0 07/15 Educational Attainment Answer Date Rafi rded Do you speak a language other than [place] at [facility]? No 07/15/2024 Do you want help with school or training? For example, starting or completing job training or getting a high school diploma, GED or equivalent. No 07/15/2024 Physical Activity Answer Date Recorded Number of minutes of exercise per week 30 07/15/2024 Self Management Answer Date Recorded Because of a physical, menta l, or emotional condition, do you have serious difficulty concentrating, remembering, or making decisions? (5 years or older) Yes 07/15/2024 Because of a physical, menta l, or emotional condition, do you have difficulty doing errands alone such as visiting a doctor's office or shopping? (15 years or older) No 07/15/2024 Substance Use Answer Date Recorded How many times in the past y ear have you used prescription drugs for non-medical reasons? Never 07/15/2024 How many times in the past year have you used [place] legal drugs? Never 07/15/2024 Mental Health Answer Date Recorded Calculation of above two rows 0 Comments No Sex and Gender Information Value Date Recorded Sex Assigned at Female 05/05/2024 11:22 AM HOME APPLIANCES MECHANIC Legal Sex Female 7:21 PM CDT Gender Identity Female 05/05/2024 11:22 AM HOME APPLIANCES MECHANIC Sexual Orientation Straight 05/05/2024 11 :22 AM HOME APPLIANCES MECHANIC Last Filed Vital Signs Vital Sign Reading Time Taken Comments Blood Pressure 131/85 07/20/2024 10:27 AM EST Pulse 89 07/20/2024 10:27 AM EST Temperature 36.6 C (97.9 F) 07/17/2024 8:00 AM EST Respiratory Rate 16 07/17/2024 8:00 AM EST Oxygen Saturation 96% 07/17/2024 12:00 AM EST Inhaled Oxygen Concentration - - Weight 102 kg (224 lb 12.8 oz) 07/20/2024 10:27 AM EST Height 160 cm (5' 3 ) 10/08/2022 10:53 AM EDT Body Mass Index 39.82 10/08/2022 10:53 AM EDT Plan of Treatment Health Maintenance Due Date Last Done Comments Pneumococcal Vaccine: 0-49 Y ears (1 of 2 - PCV) 2005 Lipid Panel 2006 Pap Smear 2007 Tobacco Cessation Counseling and Screening (12+) 12/02/2023 12/01/2022 COVID-19 VACCINE (1 - season) 2024 Influenza Vaccine (#1) 2025 DTAP/TDAP/TD VACCINES (3 - Td or Tdap) 03/20/2031, 12/22/2002 HIV Screening Completed 01/26/2024, 03/23/2022 Hepatitis C Screening Completed 01/26/2024, 022 Procedures Procedure Name Priority Date/Time Associated Diagnosis Comments HEPATITIS C VIRUS ANTIBODY W REFLEX HCV VERIFICATION Routine 01/26/2024 11:56 AM EDT Second trimester HIV-1 ANTIGEN WITH HIV-1/2 ANTIBODY Routine 01/26/2024 11:56 AM EDT Second trimester from Last 3 Months or Most Recently Relevant to Health Maintenance Results * Hepatitis C Antibody w Reflex HCV Verifi (01/26/2024 11:56 AM EDT) HCV Ab Non Reactive Non Reactive [facility] Blood 01/26/2024 11:5 6 AM EDT 01/26/2024 Narrative [facility] - 01/28/2024 6:11 AM EDT Performed at: [facility] [address] [id number] Chief Learning Officer: Juan Morocho PhD, Phone: [phone] us Patsy Nunes DO LAB BLOOD ORDERABLES Final Resul t Performing Organization Address [facility] Co de Phone Number [facility] * HIV-1 Antigen with HIV-1/2 Antibody (01/26/2024 11:56 AM EDT) [facility] Signature HIV Screen 4th Generation wRfx Non Reactive Non Reactive [facility] Comment: HIV-1/HIV-2 antibodies and HIV-1 p24 antigen were NOT detected. There is no laboratory evidence of HIV infection. HIV Negative Blood 01/26/2024 11:5 6 AM EDT 01/26/2024 Narrative [facility] - 01/28/2024 6:11 AM EDT Performed at: - [facility] [id number] Chief Learning Officer: Juan Morocho PhD, Phone: [phone] us Patsy Nunes DO LAB BLOOD ORDERABLES Final Resul t Performing Organization Address [facility] de Phone Number [facility] from Last 3 Months or Most Recently Relevant to Health Maintenance Insurance [employer] [facility] Advance Directives For more information, please contact: [phone] * Full Code (Latest Code Status on File) Date Activated Date Inactivated Comments 07/14/2024 12:49 PM 07/17/2024 3:23 PM * Full Code Date Activated Date Inactivated Comments 07/14/2024 9:47 AM 07/14/2024 12:49 PM * Full Code Date Activated Date Inactivated Comments 10/08/2022 2:06 PM 10/11/2022 3:30 PM * Full Code Date Activated Date Inactivated Comments 10/08/2022 9:59 AM 10/08/2022 2:06 PM Care Teams Sewing Machine Operator Paper Bags Relationship Specialty Start Date End Date Kerwin Verde, DO [address] [place] [address] PCP - General Internal Medicine 07/14/24
--- OUTSIDE RECORDS SUMMARY | 2025-01-16 10:38 | XMS_ITS | Encounter Summary ---
Author Organization [employer] ([place], [place], [place], [place]) Address [address] [place] [address] Care Team Providers Care Manager Community Outreach Name Role Phone Kerwin Verde DO Primary Care Provider [phone] Reason for Visit * Reason Comments Medication Refill Encounter Details Date Type Department Care Team (Late st Contact Info) Description 02/08/2023 Refill [facility] HEALTH/SAFETY JOB TITLES - [facility] [address] [place] [address] Rylie Wilson APRN [address] [place] [address] Encounter for smoking cessation counseling [...] Sex Assigned at Female 05/05/2024 11:22 AM DRUG SAFETY ASSISTANT Legal Sex Female 7:21 PM CDT Gender Identity Female 05/05/2024 11:22 AM DRUG SAFETY ASSISTANT Sexual Orientation Straight 05/05/2024 11 :22 AM DRUG SAFETY ASSISTANT documented as of this encounter Functional Status [...] counseling documented in this encounter Care Teams Manager Community Outreach Relationship Specialty Start Date End Date Kerwin Verde DO [address] [facility] [address] [place] [address] PCP - General Internal Medicine 07/14/24 documented as of this encounter
--- OUTSIDE RECORDS SUMMARY | 2025-01-16 10:38 | XMS_ITS | Encounter Summary ---
Author Organization [employer] ([place], [place], [place], [place]) Address [address] [place] [address] Care Team Providers Care Gun Synchronizer Name Role Phone Kerwin Verde DO Primary Care Provider [phone] Reason for Visit * Reason Comments Medication Refill Encounter Details Date Type Department Care Team (Late st Contact Info) Description 01/08/2023 Refill [facility] Maternal Medicine [address] [place] [address] Patsy Nunes DO [address] [place] [address] Social History Tobacco Use Types [...] Sex Assigned at Female 05/05/2024 11:22 AM PROCESS TECHNICIAN Legal Sex Female 7:21 PM CDT Gender Identity Female 05/05/2024 11:22 AM PROCESS TECHNICIAN Sexual Orientation Straight 05/05/2024 11 :22 AM PROCESS TECHNICIAN documented as of this encounter Functional Status [...] on filedocumented in this encounter Care Teams Gun Synchronizer Relationship Specialty Start Date End Date Kerwin Verde DO [address] [facility] [address] [place] [id number] PCP - General Internal Medicine 07/14/24 documented as of this encounter
--- OUTSIDE RECORDS SUMMARY | 2025-01-16 10:38 | XMS_ITS | Encounter Summary ---
Author Organization [employer] ([place], [place], [place], [place]) Address [address] [place] [address] Care Team Providers Care Phone Circuit Operator Name Role Phone Kerwin Verde DO Primary Care Provider [phone] Encounter Details Date Type Department Care Team (Late st Contact Info) Description 04/05/2021 Transcribed Document [facility] [place] [address] ProviderZeina MD [address] [place] [address] Social History Tobacco Use Types Packs/Day Years Used Date Smoking Tobacco: Never Assessed Comments Unknown Sex and Gender Information Value Date Recorded Sex Assigned at Female 05/05/2024 11:22 AM QUARTER SEAMER Legal Sex Female 7:21 PM CDT Gender Identity Female 05/05/2024 11:22 AM QUARTER SEAMER Sexual Orientation Straight 05/05/2024 11 :22 AM QUARTER SEAMER documented as of this encounter Miscellaneous Notes * Cerner Conversion Note - Historical ProviderMD - 04/05/2021 2:28 PM QUARTER SEAMER Patient: ROBYN LOUIS Age: 35 Years Sex: Female : 1985 Chief Complaint: PO PP day #1, s/p vacuum assisted repeat c/s at 39.2wks Subjective Pt has no c/o today, denies s/s PPH or PPD. Pt states she is ambulating and voiding without difficulty and states her pain is well controlled. Pt further denies SOA, chest pain, n/v/d. Pt states she is breast and bottle feeding and states baby is doing well. Review of Systems ROS except for HPI VSS, Afebrile H&H 10.9/33.2 Plts 487 Objective General: wd/wn, responds appropriately Breast: SNT Cardiovascular: RRR Lungs: CTA, b/l, non labored Abdomen: SNT, uterus is firm at umbilicus, scant lochia Ext: MAEW, 1+ b/l lower extremity edema, no calf pain Incision/Episiotomy/Lac: HEENT: normocephalic, PERRL Neuro: AA&OX4, in NAD, no numbness or weakness Psych: nml mood and affect Assessment/Plan PO PP day #1 Continue current POC Vacuum assisted repeat c/s delivery Single live 39 weeks Breast and bottle fed infant Data (X) NICU (_) Medications Inpatient aluminum hydroxide/magnesium hydroxide/simethicone 200 mg-200 mg-20 mg/5 mL oral suspension, 30 mL, Oral, Q4H, PRN Ambien, 5 mg= 1 Tab, Oral, At Bedtime, PRN Benadryl, 25 mg= 0.5 mL, IV Push, 1-Time, PRN buprenorphine-naloxone, 1 Tab, SubLINgual, Daily citalopram, 10 mg= 0.5 Tab, Oral, Daily Colace, 100 mg= 1 Cap, Oral, TID Dextrose 5% in Lactated Ringers intravenous solution 1,000 mL, 1000 mL, IntraVENous Dulcolax Laxative, 10 mg= 1 Supp, Rectal, BID, PRN Hemabate, 250 mcg= 1 mL, IntraMuscular, 1-Time, PRN hydrocortisone-pramoxine 1%-1% rectal cream, 1 Application, Rectal, Q4H, PRN ibuprofen, 600 mg= 1 Tab, Oral, Q6H lanolin topical ointment, 1 Application, Topical, See Comment, PRN measles/mumps/rubella virus vaccine, 0.5 mL, SubCutaneous, 1-Time, PRN Methergine, 0.2 mg= 1 mL, IntraMuscular, 1-Time, PRN naloxone, 0.2 mg= 0.5 mL, IV Push, See Comment, PRN Nonpharmacologic methods, 1 Each, Miscellaneous, See Comment, PRN Normal Saline Flush, 10 mL, IV Push, Q8H Normal Saline Flush, 10 mL, IV Push, See Comment, PRN Pepcid, 20 mg= 1 Tab, Oral, Q12H, PRN Percocet 5/325 oral tablet, 2 Tab, Oral, Q4H, PRN simethicone, 125 mg= 1 Tab, Oral, TID tetanus/diphth/pertuss (Tdap) adult/adol, 0.5 mL, IntraMuscular, 1-Time, PRN Zofran, 4 mg= 2 mL, IV Push, Q4H, PRN Home CeleXA 10 mg oral tablet, Oral, Daily Suboxone 4 mg-1 mg sublingual film, SubLINgual, Daily Problem List/Past Medical History Ongoing No qualifying data Historical No qualifying data Lab Results APR 05 07:02 \ L 10.9 / H 15.6 H 487 / L 33.2 \ Electronically signed by [facility] Conversion Gas Meter Reader Cerner at 09/01/2022 10:51 PM CDT documented in this encounter Plan of Treatment Not on file documented as of this encounter Visit Diagnoses Not on filedocumented in this encounter Care Teams Phone Circuit Operator Relationship Specialty Start Date End Date Kerwin Verde, 12[address] [facility] [address] [place] [id number] PCP - General Internal Medicine 07/14/24 documented as of this encounter
--- OUTSIDE RECORDS SUMMARY | 2025-01-16 10:38 | XMS_ITS | Clinical Summary ---
Author Organization [facility] Address [address] [place] [address] Care Team Providers Care Double Bass Player Name Role Phone Anai Mata APRN Primary Care Provider [phone] Allergies Active Allergy Reactions Criticality Noted Date Comments Bee Venom Swelling 10/11/2022 Tramadol Anaphylaxis High 10/16/2019 Medications buprenorphine-na loxone (SUBOXONE) 8-2 MG per SL tablet Place 1 tablet under the tongue Daily. Active Cariprazine HCl (VRAYLAR) 3 MG capsule capsule 1 capsule. 2023 Ac tive escitalopram (LEXAPRO) 5 MG tablet 1 tablet. 10/28/2023 Active cloNIDine (CATAPRES) 0.1 MG tablet 1 tablet. 10/28/2023 Active gabapentin (NEURONTIN) 800 MG tablet TAKE 1 TABLET(800 mg) orally three times a day 10/28/2023 Active Methylphenidate 25.9 MG Tablet Extended Release Dispersible 1 tablet. 10/28/2023 Active Cotempla XR-ODT 17.3 MG Tablet Extended Release Dispersible TAKE TWO TABLET BY MOUTH EVERY MORNING 11/10/2023 Active amoxicillin (AMOXIL) 500 MG capsule 1 capsule. 11/23/2023 Active amitriptyline (ELAVIL) 25 MG tablet 1 tablet. 11/10/2023 Active ketorolac (TORADOL) 10 MG tablet 1 tablet. 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 Advised to follow up Medications: Taking medications as prescribed If taking medications, do not stop treatment without consulting healthcare provider. If symptoms worsen or do not improve/stabilize, notify health care provider right away. If thoughts of harming self or others notify health care provider immediately &/or seek urgent/emergent care including calling Suicide Hotline (581 or ) or 871. Follow up in three months with PCP Morbid (severe) obesity due to excess calories 0 12/07/2022 Overview (11/08/2023): Last Assessment & Plan: Condition: stable Co-morbidities: post Follow up in: three months Antepartum multigravida of advanced maternal age 0105/21/2022 Opioid dependence on mainten ance agonist therapy, no symptoms 05/21/2022 Family history of congenital heart defect 2022 History of 08/05/2020 Overview (08/29/2020): 01/03 in [place] baby boy Guy weighing 8 pounds 4 ounces. Repeat scheduled on 04/03/2021 at 7:30 AM History of substance abuse 08/05/2020 Overview (09/24/2020): Meth drug of choice. Last use October 2019 when she found out she is with her first child. Following with the [facility]. On Suboxone 4mg qday THC positive at new OB visit. Advised cessation. Tobacco abuse 08/05/2020 08/02/2020 Resolved Problems Problem Noted Date Diagnosed Date Resolved Date Pelvic pain affecting pregna ncy in third trimester, antepartum 10/16/2019 08/22/2020 Immunizations Immunization Administration Dates Next Due Hep B, Adolescent or Pediatric 12/22/2002 Hepatitis A 03/30/2019,03/30/2018 MMR 02/11/1998 Td (TDVAX) 12/22/2002 Tdap 03/20/2021 Family History Medical History Relation Name Comments Heart disease Maternal Grandfather [place] Diabetes Paternal Aunt Tamar Louis Cancer Paternal Grandfather Farhan Louis Stroke Paternal Grandfather Farhan Louis Anxiety disorder Paternal Grandmother Bernarda Louis Depression Paternal Grandmother Bernarda Louis Stroke Paternal Grandmother Bernarda Louis Relation Name Status Comments Maternal Grandfather [place] Paternal Aunt Tamar Louis Paternal Grandfather Farhan Louis Paternal Grandmother Bernarda Louis Social History Tobacco Use Types Packs/Day Years Used Date Smoking Tobacco: Every Day Cigarettes 0.5 20 Passive Smoke Exposure: Current Smokeless Tobacco: Never Tobacco Cessation:Ready to Q uit: Not Asked; Counseling Given: Not Answered Alcohol Use Standard Drinks/Week Comments Not Currently 0 (1 standard drink = 0.6 oz pur e alcohol) Abuse Screen Answer Date Recorded Unsafe at Home or Work/School Not on file Feels Threatened by Someone? Not on file 04/2023 Does Anyone Keep You from Co ntacting Others or Doint Things Outside the Home? Not on file 02/25/2023 Physical Sign of Abuse Present Not on file 1 Housing Stability Answer Date Recorded Current Living Arrangements Not on file 02/14 Potentially Unsafe Housing Conditions Not on jacklyn e 02/25/2023 Family and Community Support Answer Jonas e Recorded Help with Day-to-Day Activities Not on file 02/25/2023 Lonely or Isolated Not on file 02/25/2023 Employment Answer Date Recorded Do you want help finding or keeping work or a sandra b? Not on file 02/25/2023 Disabilities Answer Date Recorded Concentrating, Remembering, or Making Decisions Difficulty Not on file 02/25/2023 Doing Errands Independently Difficulty Not on fi le 02/25/2023 Education Answer Date Recorded Help with school or training? Not on file Preferred Language Not on file 02/25/2023 PHQ-2 Answer Date Recorded Retired PHQ-9: Brief Depression Severity Measure Score 0 11/08/2023 Comments No Sex and Gender Information Value Date Recorded Sex Assigned at Not on file Legal Sex Female 4:52 AM EDT Gender Identity Not on file Sexual Orientation Not on file Last Filed Vital Signs Vital Sign Reading Time Taken Comments Blood Pressure 132/76 11/08/2023 10:28 AM EDT Pulse 95 11/08/2023 10:28 AM EDT Temperature 36.7 C (98 F) 11/24/2023 10:51 AM EDT Respiratory Rate 18 10/16/2019 5:42 AM EDT Oxygen Saturation 98% 11/08/2023 10:28 AM EDT Inhaled Oxygen Concentration - - Weight 89.4 kg (197 lb) 11/24/2023 10:51 AM EDT Height 160 cm (5' 3 ) 11/24/2023 10:51 AM EDT Body Mass Index 34.9 11/24/2023 10:51 AM EDT Plan of Treatment Health Maintenance Due Date Last Done Comments Annual Gynecologic Pelvic and Breast Exam 1985 Pneumococcal Vaccine 0-49 (1 of 2 - PCV) 2005 PAP SMEAR 2007 ANNUAL PHYSICAL 10/16/2019 COVID-19 Vaccine ( season) 2024 INFLUENZA VACCINE 02/14/2025 TDAP/TD VACCINES (3 - Td or Tdap) 03/20/2031 021, 12/22/2002 HEPATITIS C SCREENING Completed 08/22/2020, 020 Procedures Procedure Name Priority Date/Time Associated Diagnosis Comments OBSTETRIC PANEL Routine 08/22/2020 10:50 AM EDT , unspecified gestational age from Last 3 Months or Most Recently Relevant to Health Maintenance Results * (ABNORMAL) Obstetric Panel (08/22/2020 10:50 AM EDT) Hepatitis B Surface Ag Negative Negative [facility] Hep C Virus Ab <0.1 0.0 - 0.9 s/co ratio [facility] Comment: Negative: < 0.8 Indeterminate: 0.8 - 0.9 Positive: > 0.9 The CDC recommends that a positive HCV antibody result be followed up with a HCV Nucleic Acid Amplification test (092850). RPR Non Reactive Non Reactive [facility] Rubella Antibodies, IgG 21.10 Immune >0.99 index [facility] Comment: Non-immune <0.90 Equivocal 0.90 - 0.99 Immune >0.99 ABO Type A [facility] Rh Factor Positive [facility] Comment: Please note: Prior records for this patient's ABO / Rh type are not available for additional verification. Antibody Screen Negative Negative [facility] WBC 14.8(H) 3.4 - 10.8 x10E3/uL [facility] RBC 4.87 3.77 - 5.28 x10E6/uL [facility] Hemoglobin 14.2 11.1 - 15.9 g/dL [facility] Hematocrit 42.1 34.0 - 46.6 % [facility] MCV 86 79 - 97 fL [facility] MCH 29.2 26.6 - 33.0 pg [facility] MCHC 33.7 31.5 - 35.7 g/dL [facility] RDW 14.2 11.7 - 15.4 % [facility] Platelets 748(H) 150 - 450 x10E3/uL [facility] Neutrophil Rel % 75 Not Estab. % [facility] Lymphocyte Rel % 18 Not Estab. % [facility] Monocyte Rel % 6 Not Estab. % [facility] Eosinophil Rel % 1 Not Estab. % [facility] Basophil Rel % 0 Not Estab. % [facility] Neutrophils Absolute 10.9(H) 1.4 - 7.0 x10E3/uL [facility] Lymphocytes Absolute 2.7 0.7 - 3.1 x10E3/uL [facility] Monocytes Absolute 1.0(H) 0.1 - 0.9 x10E3/uL [facility] Eosinophils Absolute 0.2 0.0 - 0.4 x10E3/uL [facility] Basophils Absolute 0.1 0.0 - 0.2 x10E3/uL [facility] Immature Granulocyte Rel % 0 Not Estab. % [facility] Immature Grans Absolute 0.0 0.0 - 0.1 x10E3/uL [facility] Blood 08/22/2020 10:5 0 AM EDT 08/23/2020 Narrative [facility] - 08/26/2020 8:07 PM EDT Performed at: 01 - [facility] [address] [place], [place] [id number] Final Finisher: Juan Morocho PhD, Phone: [phone] us Josey Bhatti MD LAB BLOOD ORDERABLES Fin al Result [facility] ([facility] [address] [place] [address], [place] [phone] [facility] [address] [place] [address], [place] [phone] from Last 3 Months or Most Recently Relevant to Health Maintenance Insurance [employer] Care Teams Double Bass Player Relationship Specialty Start Date End Date Anai Mata APRN [address] [address] PCP - General Nurse Practitioner 11/08/23
--- OUTSIDE RECORDS SUMMARY | 2025-01-16 10:38 | XMS_ITS | Encounter Summary ---
Author Organization [employer] ([place], [place], [place], [place]) Address [address] [place] [address] Care Team Providers Care Professor Of Social Work Name Role Phone Kerwin Verde DO Primary Care Provider [phone] Reason for Visit * Reason Comments Medication Refill Encounter Details Date Type Department Care Team (Late st Contact Info) Description 01/06/2023 Refill [facility] CEMENTER [facility] - [facility] [address] [place] [address] Rylie Wilson APRN [address] [place] [address] Encounter for smoking cessation counseling [...] Sex Assigned at Female 05/05/2024 11:22 AM RADIO DIVISION CAPTAIN Legal Sex Female 7:21 PM CDT Gender Identity Female 05/05/2024 11:22 AM RADIO DIVISION CAPTAIN Sexual Orientation Straight 05/05/2024 11 :22 AM RADIO DIVISION CAPTAIN documented as of this encounter Functional Status [...] counseling documented in this encounter Care Teams Professor Of Social Work Relationship Specialty Start Date End Date Kerwin Verde DO [address] [facility] [address] [place] [id number] PCP - General Internal Medicine 07/14/24 documented as of this encounter
--- OUTSIDE RECORDS SUMMARY | 2025-01-16 10:38 | XMS_ITS | Encounter Summary ---
Author Organization [facility] ([place], [place], [place], [place]) Address [address] [place] [address] Care Team Providers Care Long Term Care Phlebotomist Name Role Phone Kerwin Verde DO Primary Care Provider [phone] Encounter Details Date Type Department Care Team (Late st Contact Info) Description 04/07/2021 Transcribed Document [facility] [facility] [place] [address] ProviderZeina MD [address] [place] [address] Social History Tobacco Use Types Packs/Day Years Used Date Smoking Tobacco: Never Assessed Comments Unknown Sex and Gender Information Value Date Recorded Sex Assigned at Female 05/05/2024 11:22 AM HARMONIC ANALYST Legal Sex Female 7:21 PM CDT Gender Identity Female 05/05/2024 11:22 AM HARMONIC ANALYST Sexual Orientation Straight 05/05/2024 11 :22 AM HARMONIC ANALYST documented as of this encounter Miscellaneous Notes * Cerner Conversion Note - Historical ProviderMD - 04/07/2021 11:02 AM HARMONIC ANALYST [address] [address] JULIO CESAR [place] :1985 Visit Time:04/04/2021 Your Visit Summary Your Care Team Admitting Physician - LG ORDAZ, DO Attending Physician - LG ORDAZ, DO Primary Care Physician - LG ORDAZ, DO Referring Physician - LG ORDAZ, DO Your Diagnosis 39 weeks gestation of Breastfed and bottle fed infant Encounter for supervision of normal first , unspecified trimester, Encounter for supervision of normal first , unspecified trimester Maternal care for scar from previous delivery Single live Vacuum-assisted delivery, delivered, current hospitalization These Are Your Goals No qualifying data available. What to do next Instructions From Your Care Team Diet after Discharge: Resume usual diet as tolerated Drink at least 8-10 glasses of water a day Do not drink any alcoholic beverages Add 500 extra calories daily if Eat a 1-2 carbohydrate snack before or during Activity After Discharge:As tolerated,Rest and relax today,No strenuous activities,Nothing in the vagina for 6 weeks Lifting Restrictions:No lifting over 10 pounds for 2 weeks Minimize Stair Climbing Discuss Exercise with your physician Driving after Discharge:No driving while on pain medication May Return to Work: After 6 week follow up Showering Bathing:May Shower,No tub, soaking or swimming for 2 weeks Breast Care: Wear supportive bras as much as possible Avoid applying heat to breasts If nipple soreness occurs, rub colostrum (breastmilk) or a pea-sized amount of lanolin on nipples after feeding Practice self-breast exam monthly , Notify Provider of: Redness, swelling, or drainage from incision Foul smelling vaginal discharge Temperature over 101 degrees Fahrenheit Signs of depression or anxiety that makes it hard for you to care for yourself or your baby Weight up more than 2 pounds a day or more than 5 pounds in a week Incision pulling apart Pass blood clots larger than a golf ball Sharp pain or redness in your legs Painful urination or feeling like you have to go to the bathroom all the time Have breast pain with fever and chills Excessive vomiting or diarrhea Vaginal bleeding greater than 1 pad per hour Pain is worsening and current pain medication is not adequate When to go to the Emergency Room or call 911: Shortness of breath or chest pain Unable to reach provider Wound/Incision Care After Discharge: Keep operative site/wound site clean and dry Remove remaining steri-strips after 7-10 days Follow-Up Appointments Follow Up with LG TAM When 04/18/2021 09:20 AM EST Comments Appointment has been made Where: [address] [place] [phone] Business (1) Medications What How Much When Instructions Next Dose acetaminophen-oxyCODONE (Percocet 5/ 325 oral tablet) 1 Tablet(s) Oral Every 6 Hours as needed for Pain (Severe 7-10) Duration: 3 Day(s) Pickup at [facility] Anytime docusate (Colace 100 mg oral capsule) 1 Capsule(s) Oral Three Times A Day Duration: 7 Day(s) Pickup at [facility] 3PM, 9PM, 9AM ibuprofen (ibuprofen 800 mg oral tablet) 1 Tablet(s) Oral Every 8 Hours Duration: 10 Day(s) Refills: 2 Pickup at [facility] 6 PM Pharmacy Information [facility]: [address] [place] [address] [phone] Take your medications faithfully. Do NOT skip medication. Do NOT stop taking medications without the direction of a physician. Carry a list of your medications with you at all times, and take this medication list with you to your first follow up visit. Report any side effects. Avoid herbal remedies unless discussed with your physician. As part of your treatment plan, your physician may have prescribed a limited course of a controlled substance. This medication may be given to help people with moderate or severe pain or for other medical conditions, but there are risks involved with treatment. Common side effects may include nausea, constipation, drowsiness, sweating, itching, dry mouth, and rash. More serious side effects may include cognitive and motor impairment, like problems with thinking, concentrating, alertness, and movement (e.g. slowed reflexes), and driving and operating heavy machinery can be dangerous. It is important for you to talk to your physician if you have these side effects or questions. These controlled substances can produce physical dependence and be habit-forming if taken for an extended period of time, which means that the body has gotten used to them and may experience withdrawal symptoms if they are abruptly stopped. Withdrawal symptoms can include runny nose, sweating, goose bumps, diarrhea, abdominal cramping, rapid heartbeat, difficulty sleeping, and nervousness. Please dispose of unused and medications per your retail pharmacy guidance. Allergies Bee Stings traMADol Immunizations This Visit No Immunizations Found Education Materials Choosing to breastfeed is one of the best decisions you can make for yourself and your baby. A change in hormones during causes your breasts to make breast milk in your milk-producing glands. Hormones prevent breast milk from being released before your baby is born. They also prompt milk flow after . Once has begun, thoughts of your baby, as well as his or her sucking or crying, can stimulate the release of milk from your milk-producing glands. Benefits of Research shows that offers many health benefits for infants and mothers. It also offers a cost-free and convenient way to feed your baby. For your baby ??? Your first milk (colostrum) helps your baby's digestive system to function better. ??? Special cells in your milk (antibodies) help your baby to fight off infections. ??? Breastfed babies are less likely to develop asthma, allergies, obesity, or type 2 diabetes. They are also at lower risk for sudden infant syndrome (SIDS). ??? Nutrients in breast milk are better able to meet your baby???s needs compared to infant formula. ??? Breast milk improves your baby's brain development. For you ??? helps to create a very special atkins between you and your baby. ??? is convenient. Breast milk costs nothing and is always available at the correct temperature. ??? helps to burn calories. It helps you to lose the weight that you gained during . ??? makes your uterus return faster to its size before . It also slows bleeding (lochia) after you give . ??? helps to lower your risk of developing type 2 diabetes, osteoporosis, rheumatoid arthritis, cardiovascular disease, and breast, ovarian, uterine, and endometrial cancer later in life. basics Starting ??? Find a comfortable place to sit or lie down, with your neck and back well-supported. ??? Place a pillow or a rolled-up blanket under your baby to bring him or her to the level of your breast (if you are seated). Nursing pillows are specially designed to help support your arms and your baby while you breastfeed. ??? Make sure that your baby's tummy (abdomen) is facing your abdomen. ??? Gently massage your breast. With your fingertips, massage from the outer edges of your breast inward toward the nipple. This encourages milk flow. If your milk flows slowly, you may need to continue this action during the feeding. ??? Support your breast with 4 fingers underneath and your thumb above your nipple (make the letter C with your hand). Make sure your fingers are well away from your nipple and your baby???s mouth. ??? Stroke your baby's lips gently with your finger or nipple. ??? When your baby's mouth is open wide enough, quickly bring your baby to your breast, placing your entire nipple and as much of the areola as possible into your baby's mouth. The areola is the colored area around your nipple. ? More areola should be visible above your baby's upper lip than below the lower lip. ? Your baby's lips should be opened and extended outward (flanged) to ensure an adequate, comfortable latch. ? Your baby's tongue should be between his or her lower gum and your breast. ??? Make sure that your baby's mouth is correctly positioned around your nipple (latched). Your baby's lips should create a seal on your breast and be turned out (everted). ??? It is common for your baby to suck about 2???3 minutes in order to start the flow of breast milk. Latching Teaching your baby how to latch onto your breast properly is very important. An improper latch can cause nipple pain, decreased milk supply, and poor weight gain in your baby. Also, if your baby is not latched onto your nipple properly, he or she may swallow some air during feeding. This can make your baby fussy. Burping your baby when you switch breasts during the feeding can help to get rid of the air. However, teaching your baby to latch on properly is still the best way to prevent fussiness from swallowing air while . Signs that your baby has successfully latched onto your nipple ??? Silent tugging or silent sucking, without causing you pain. Infant's lips should be extended outward (flanged). ??? Swallowing heard between every 3???4 sucks once your milk has started to flow (after your let-down milk reflex occurs). ??? Muscle movement above and in front of his or her ears while sucking. Signs that your baby has not successfully latched onto your nipple ??? Sucking sounds or smacking sounds from your baby while . ??? Nipple pain. If you think your baby has not latched on correctly, slip your finger into the corner of your baby???s mouth to break the suction and place it between your baby's gums. Attempt to start again. Signs of successful Signs from your baby ??? Your baby will gradually decrease the number of sucks or will completely stop sucking. ??? Your baby will fall asleep. ??? Your baby's body will relax. ??? Your baby will retain a small amount of milk in his or her mouth. ??? Your baby will let go of your breast by himself or herself. Signs from you ??? Breasts that have increased in firmness, weight, and size 1???3 hours after feeding. ??? Breasts that are softer immediately after . ??? Increased milk volume, as well as a change in milk consistency and color by the fifth day of . ??? Nipples that are not sore, cracked, or bleeding. Signs that your baby is getting enough milk ??? Wetting at least 1???2 diapers during the first 24 hours after . ??? Wetting at least 5???6 diapers every 24 hours for the first week after . The urine should be clear or pale yellow by the age of 5 days. ??? Wetting 6???8 diapers every 24 hours as your baby continues to grow and develop. ??? At least 3 stools in a 24-hour period by the age of 5 days. The stool should be soft and yellow. ??? At least 3 stools in a 24-hour period by the age of 7 days. The stool should be seedy and yellow. ??? No loss of weight greater than 10% of weight during the first 3 days of life. ??? Average weight gain of 4???7 oz (113???198 g) per week after the age of 4 days. ??? Consistent daily weight gain by the age of 5 days, without weight loss after the age of 2 weeks. After a feeding, your baby may spit up a small amount of milk. This is normal. frequency and duration Frequent feeding will help you make more milk and can prevent sore nipples and extremely full breasts (breast engorgement). Breastfeed when you feel the need to reduce the fullness of your breasts or when your baby shows signs of hunger. This is called on demand. Signs that your baby is hungry include: ??? Increased alertness, activity, or restlessness. ??? Movement of the head from side to side. ??? Opening of the mouth when the corner of the mouth or cheek is stroked (rooting). ??? Increased sucking sounds, smacking lips, cooing, sighing, or squeaking. ??? Pcog-ho-kziml movements and sucking on fingers or hands. ??? Fussing or crying. Avoid introducing a pacifier to your baby in the first 4-6 weeks after your baby is born. After this time, you may choose to use a pacifier. Research has shown that pacifier use during the first year of a baby's life decreases the risk of sudden syndrome (SIDS). Allow your baby to feed on each breast as long as he or she wants. When your baby unlatches or falls asleep while feeding from the first breast, offer the second breast. Because newborns are often sleepy in the first few weeks of life, you may need to awaken your baby to get him or her to feed. times will vary from baby to baby. However, the following rules can serve as a guide to help you make sure that your baby is properly fed: ??? Newborns (babies 4 weeks of age or younger) may breastfeed every 1???3 hours. ??? Newborns should not go without for longer than 3 hours during the day or 5 hours during the night. ??? You should breastfeed your baby a minimum of 8 times in a 24-hour period. Breast milk pumping Pumping and storing breast milk allows you to make sure that your baby is exclusively fed your breast milk, even at times when you are unable to breastfeed. This is especially important if you go back to work while you are still , or if you are not able to be present during feedings. Your java consultant can help you find a method of pumping that works best for you and give you guidelines about how long it is safe to store breast milk. Caring for your breasts while you breastfeed Nipples can become dry, cracked, and sore while . The following recommendations can help keep your breasts moisturized and healthy: ??? Avoid using soap on your nipples. ??? Wear a supportive bra designed especially for nursing. Avoid wearing underwire-style bras or extremely tight bras (sports bras). ??? Air-dry your nipples for 3???4 minutes after each feeding. ??? Use only cotton bra pads to absorb leaked breast milk. Leaking of breast milk between feedings is normal. ??? Use lanolin on your nipples after . Lanolin helps to maintain your skin's normal moisture barrier. Pure lanolin is not harmful (not toxic) to your baby. You may also hand express a few drops of breast milk and gently massage that milk into your nipples and allow the milk to air-dry. In the first few weeks after giving , some women experience breast engorgement. Engorgement can make your breasts feel heavy, warm, and tender to the touch. Engorgement peaks within 3???5 days after you give . The following recommendations can help to ease engorgement: ??? Completely empty your breasts while or pumping. You may want to start by applying warm, moist heat (in the shower or with warm, water-soaked hand towels) just before feeding or pumping. This increases circulation and helps the milk flow. If your baby does not completely empty your breasts while , pump any extra milk after he or she is finished. ??? Apply ice packs to your breasts immediately after or pumping, unless this is too uncomfortable for you. To do this: ? Put ice in a plastic bag. ? Place a towel between your skin and the bag. ? Leave the ice on for 20 minutes, 2???3 times a day. ??? Make sure that your baby is latched on and positioned properly while . If engorgement persists after 48 hours of following these recommendations, contact your health care provider or a java consultant. Overall health care recommendations while ??? Eat 3 healthy meals and 3 snacks every day. Well-nourished mothers who are need an additional 450???500 calories a day. You can meet this requirement by increasing the amount of a balanced diet that you eat. ??? Drink enough water to keep your urine pale yellow or clear. ??? Rest often, relax, and continue to take your vitamins to prevent fatigue, stress, and low vitamin and mineral levels in your body (nutrient deficiencies). ??? Do not use any products that contain nicotine or tobacco, such as cigarettes and e-cigarettes. Your baby may be harmed by chemicals from cigarettes that pass into breast milk and exposure to secondhand smoke. If you need help quitting, ask your health care provider. ??? Avoid alcohol. ??? Do not use illegal drugs or marijuana. ??? Talk with your health care provider before taking any medicines. These include jazx-xlo-wxtvdwk and prescription medicines as well as vitamins and herbal supplements. Some medicines that may be harmful to your baby can pass through breast milk. ??? It is possible to become while . If control is desired, ask your health care provider about options that will be safe while your baby. Where to find more information: [employer]: www.llli.org Contact a health care provider if: ??? You feel like you want to stop or have become frustrated with . ??? Your nipples are cracked or bleeding. ??? Your breasts are red, tender, or warm. ??? You have: ? Painful breasts or nipples. ? A swollen area on either breast. ? A fever or chills. ? Nausea or vomiting. ? Drainage other than breast milk from your nipples. ??? Your breasts do not become full before feedings by the fifth day after you give . ??? You feel sad and depressed. ??? Your baby is: ? Too sleepy to eat well. ? Having trouble sleeping. ? More than 1 week old and wetting fewer than 6 diapers in a 24-hour period. ? Not gaining weight by 5 days of age. ??? Your baby has fewer than 3 stools in a 24-hour period. ??? Your baby's skin or the white parts of his or her eyes become yellow. Get help right away if: ??? Your baby is overly tired (lethargic) and does not want to wake up and feed. ??? Your baby develops an unexplained fever. Summary ??? offers many health benefits for infant and mothers. ??? Try to breastfeed your infant when he or she shows early signs of hunger. ??? Gently tickle or stroke your baby's lips with your finger or nipple to allow the baby to open his or her mouth. Bring the baby to your breast. Make sure that much of the areola is in your baby's mouth. Offer one side and burp the baby before you offer the other side. ??? Talk with your health care provider or java consultant if you have questions or you face problems as you breastfeed. This information is not intended to replace advice given to you by your health care provider. Make sure you discuss any questions you have with your health care provider. Document Revised: 07/28/2018 Document Reviewed: 06/04/2017 [employer] Patient Education ?? 2020 [employer] Care After Delivery This sheet gives you information about how to care for yourself from the time you deliver your baby to up to 6???12 weeks after delivery ( period). Your health care provider may also give you more specific instructions. If you have problems or questions, contact your health care provider. Follow these instructions at home: Medicines ??? Take dmiz-snm-olnsnan and prescription medicines only as told by your health care provider. ??? If you were prescribed an antibiotic medicine, take it as told by your health care provider. Do not stop taking the antibiotic even if you start to feel better. ??? Ask your health care provider if the medicine prescribed to you: ? Requires you to avoid driving or using heavy machinery. ? Can cause constipation. You may need to take actions to prevent or treat constipation, such as: ? Drink enough fluid to keep your urine pale yellow. ? Take wkst-euw-hyqlytb or prescription medicines. ? Eat foods that are high in fiber, such as beans, whole grains, and fresh fruits and vegetables. ? Limit foods that are high in fat and processed sugars, such as fried or sweet foods. Activity ??? Gradually return to your normal activities as told by your health care provider. ??? Avoid activities that take a lot of effort and energy (are strenuous) until approved by your health care provider. Walking at a slow to moderate pace is usually safe. Ask your health care provider what activities are safe for you. ? Do not lift anything that is heavier than your baby or 10 lb (4.5 kg) as told by your health care provider. ? Do not vacuum, climb stairs, or drive a car for as long as told by your health care provider. ??? If possible, have someone help you at home until you are able to do your usual activities yourself. ??? Rest as much as possible. Try to rest or take naps while your baby is sleeping. Vaginal bleeding ??? It is normal to have vaginal bleeding (lochia) after delivery. Wear a sanitary pad to absorb vaginal bleeding and discharge. ? During the first week after delivery, the amount and appearance of lochia is often similar to a menstrual period. ? Over the next few weeks, it will gradually decrease to a dry, yellow-brown discharge. ? For most women, lochia stops completely by 4???6 weeks after delivery. Vaginal bleeding can vary from woman to woman. ??? Change your sanitary pads frequently. Watch for any changes in your flow, such as: ? A sudden increase in volume. ? A change in color. ? Large blood clots. ??? If you pass a blood clot, save it and call your health care provider to discuss. Do not flush blood clots down the toilet before you get instructions from your health care provider. ??? Do not use tampons or douches until your health care provider says this is safe. ??? If you are not , your period should return 6???8 weeks after delivery. If you are , your period may return anytime between 8 weeks after delivery and the time that you stop . Perineal care ??? If your ( section) was unplanned, and you were allowed to labor and push before delivery, you may have pain, swelling, and discomfort of the tissue between your vaginal opening and your anus (perineum). You may also have an incision in the tissue (episiotomy) or the tissue may have torn during delivery. Follow these instructions as told by your health care provider: ? Keep your perineum clean and dry as told by your health care provider. Use medicated pads and pain-relieving sprays and creams as directed. ? If you have an episiotomy or vaginal tear, check the area every day for signs of infection. Check for: ? Redness, swelling, or pain. ? Fluid or blood. ? Warmth. ? Pus or a bad smell. ? You may be given a squirt bottle to use instead of wiping to clean the perineum area after you go to the bathroom. As you start healing, you may use the squirt bottle before wiping yourself. Make sure to wipe gently. ? To relieve pain caused by an episiotomy, vaginal tear, or hemorrhoids, try taking a warm sitz bath 2???3 times a day. A sitz bath is a warm water bath that is taken while you are sitting down. The water should only come up to your hips and should cover your buttocks. Breast care ??? Within the first few days after delivery, your breasts may feel heavy, full, and uncomfortable (breast engorgement). You may also have milk leaking from your breasts. Your health care provider can suggest ways to help relieve breast discomfort. Breast engorgement should go away within a few days. ??? If you are : ? Wear a bra that supports your breasts and fits you well. ? Keep your nipples clean and dry. Apply creams and ointments as told by your health care provider. ? You may need to use breast pads to absorb milk leakage. ? You may have uterine contractions every time you breastfeed for several weeks after delivery. Uterine contractions help your uterus return to its normal size. ? If you have any problems with , work with your health care provider or a java consultant. ??? If you are not : ? Avoid touching your breasts as this can make your breasts produce more milk. ? Wear a well-fitting bra and use cold packs to help with swelling. ? Do not squeeze out (express) milk. This causes you to make more milk. Intimacy and sexuality ??? Ask your health care provider when you can engage in sexual activity. This may depend on your: ? Risk of infection. ? Healing rate. ? Comfort and desire to engage in sexual activity. ??? You are able to get after delivery, even if you have not had your period. If desired, talk with your health care provider about methods of family planning or control (contraception). Lifestyle ??? Do not use any products that contain nicotine or tobacco, such as cigarettes, e-cigarettes, and chewing tobacco. If you need help quitting, ask your health care provider. ??? Do not drink alcohol, especially if you are . Eating and drinking ??? Drink enough fluid to keep your urine pale yellow. ??? Eat high-fiber foods every day. These may help prevent or relieve constipation. High-fiber foods include: ? Whole grain cereals and breads. ? Brown rice. ? Beans. ? Fresh fruits and vegetables. ??? Take your vitamins until your checkup or until your health care provider tells you it is okay to stop. General instructions ??? Keep all follow-up visits for you and your baby as told by your health care provider. Most women visit their health care provider for a checkup within the first 3???6 weeks after delivery. Contact a health care provider if you: ??? Feel unable to cope with the changes that a new baby brings to your life, and these feelings do not go away. ??? Feel unusually sad or worried. ??? Have breasts that are painful, hard, or turn red. ??? Have a fever. ??? Have trouble holding urine or keeping urine from leaking. ??? Have little or no interest in activities you used to enjoy. ??? Have not breastfed at all and you have not had a menstrual period for 12 weeks after delivery. ??? Have stopped and you have not had a menstrual period for 12 weeks after you stopped . ??? Have questions about caring for yourself or your baby. ??? Pass a blood clot from your vagina. Get help right away if you: ??? Have chest pain. ??? Have difficulty breathing. ??? Have sudden, severe leg pain. ??? Have severe pain or cramping in your abdomen. ??? Bleed from your vagina so much that you fill more than one sanitary pad in one hour. Bleeding should not be heavier than your heaviest period. ??? Develop a severe headache. ??? Faint. ??? Have blurred vision or spots in your vision. ??? Have a bad-smelling vaginal discharge. ??? Have thoughts about hurting yourself or your baby. If you ever feel like you may hurt yourself or others, or have thoughts about taking your own life, get help right away. You can go to your nearest emergency department or call: ??? Your local emergency services (911 in the [place] ??? A suicide crisis helpline, such as the National Suicide Prevention Lifeline at . This is open 24 hours a day. Summary ??? The period of time from when you deliver your baby to up to 6???12 weeks after delivery is called the period. ??? Gradually return to your normal activities as told by your health care provider. ??? Keep all follow-up visits for you and your baby as told by your health care provider. This information is not intended to replace advice given to you by your health care provider. Make sure you discuss any questions you have with your health care provider. Document Revised: 12/21/2018 Document Reviewed: 12/21/2018 [employer] Patient Education ?? 2020 [employer]. ibuprofen (EYE bue PROE fen) Advil, Genpril, IBU, Midol IB, Motrin IB, Proprinal, Smart Sense Children's Ibuprofen What is the most important information I should know about ibuprofen? Ibuprofen can increase your risk of fatal heart attack or stroke. Do not use this medicine just before or after heart bypass surgery (coronary artery bypass graft, or CABG). Ibuprofen may also cause stomach or intestinal bleeding, which can be fatal. What is ibuprofen? Ibuprofen is a nonsteroidal anti-inflammatory drug (NSAID). Ibuprofen is used to reduce fever and treat pain or inflammation caused by many conditions such as headache, toothache, back pain, arthritis, menstrual cramps, or minor injury. This medicine is used in adults and children who are at least 6 months old. Ibuprofen may also be used for purposes not listed in this medication guide. What should I discuss with my healthcare provider before taking ibuprofen? Ibuprofen can increase your risk of fatal heart attack or stroke, even if you don't have any risk factors. Do not use this medicine just before or after heart bypass surgery (coronary artery bypass graft, or CABG). Ibuprofen may also cause stomach or intestinal bleeding, which can be fatal. These conditions can occur without warning while you are using ibuprofen, especially in older adults. You should not use ibuprofen if you are allergic to it, or if you have ever had an asthma attack or severe allergic reaction after taking aspirin or an NSAID. Ask a doctor or pharmacist if this medicine is safe to use if you have ever had: ?? heart disease, high blood pressure, high cholesterol, diabetes, or if you smoke; ?? a heart attack, stroke, or blood clot; ?? stomach ulcers or bleeding; ?? liver or kidney disease; ?? asthma; or ?? if you take aspirin to prevent heart attack or stroke. Ask a doctor before using this medicine if you are or . If you are , you should not take ibuprofen unless your doctor tells you to. Taking an NSAID during the last 20 weeks of can cause serious heart or kidney problems in the unborn baby and possible complications with your . Do not give ibuprofen to a child younger than 6 months old without the advice of a doctor. How should I take ibuprofen? Use exactly as directed on the label, or as prescribed by your doctor. Use the lowest dose that is effective in treating your condition. An ibuprofen overdose can damage your stomach or intestines. The maximum amount of ibuprofen for adults is 800 milligrams per dose or 3200 mg per day (4 maximum doses). A child's dose of ibuprofen is based on the age and weight of the child. Carefully follow the dosing instructions provided with children's ibuprofen for the age and weight of your child. Ask a doctor or pharmacist if you have questions. Take ibuprofen with food or milk to lessen stomach upset. Shake the oral suspension (liquid) before you measure a dose. Use the dosing syringe provided, or use a medicine dose-measuring device (not a kitchen spoon). You must chew the chewable tablet before you swallow it. Store at room temperature away from moisture and heat. Do not allow the liquid medicine to freeze. What happens if I miss a dose? Since ibuprofen is used when needed, you may not be on a dosing schedule. Skip any missed dose if it's almost time for your next dose. Do not use two doses at one time. What happens if I overdose? Seek emergency medical attention or call the Poison Help line at . Overdose symptoms may include nausea, vomiting, stomach pain, drowsiness, black or bloody stools, coughing up blood, shallow breathing, fainting, or coma. What should I avoid while taking ibuprofen? Ask a doctor or pharmacist before using other medicines for pain, fever, swelling, or cold/flu symptoms. They may contain ingredients similar to ibuprofen (such as aspirin, ibuprofen, ketoprofen, or naproxen). Avoid taking aspirin unless your doctor tells you to. If you also take aspirin to prevent stroke or heart attack, taking ibuprofen can make aspirin less effective in protecting your heart and blood vessels. If you take both medicines, take ibuprofen at least 8 hours before or 30 minutes after you take aspirin (non-enteric coated form). Avoid drinking alcohol. It may increase your risk of stomach bleeding. What are the possible side effects of ibuprofen? Get emergency medical help if you have signs of an allergic reaction (hives, difficult breathing, swelling in your face or throat) or a severe skin reaction (fever, sore throat, burning eyes, skin pain, red or purple skin rash with blistering and peeling). Get emergency medical help if you have signs of a heart attack or stroke: chest pain spreading to your jaw or shoulder, sudden numbness or weakness on one side of the body, slurred speech, leg swelling, feeling short of breath. Stop using ibuprofen and call your doctor at once if you have: ?? changes in your vision; ?? shortness of breath (even with mild exertion); ?? swelling or rapid weight gain; ?? a skin rash, no matter how mild; ?? signs of stomach bleeding--bloody or tarry stools, coughing up blood or vomit that looks like coffee grounds; ?? liver problems--nausea, upper stomach pain, itching, tired feeling, flu-like symptoms, loss of appetite, dark urine, rosa isela-colored stools, jaundice (yellowing of the skin or eyes); ?? low red blood cells (anemia)--pale skin, feeling light-headed or short of breath, rapid heart rate, trouble concentrating; or ?? kidney problems--little or no urinating, painful or difficult urination, swelling in your feet or ankles, feeling tired or short of breath. Common side effects may include: ?? nausea, vomiting, gas; ?? bleeding; or ?? dizziness, headache. This is not a complete list of side effects and others may occur. Call your doctor for medical advice about side effects. You may report side effects to FDA at 1-025-RJM-9022. What other drugs will affect ibuprofen? Ask your doctor before using ibuprofen if you take an antidepressant. Taking certain antidepressants with an NSAID may cause you to bruise or bleed easily. Ask a doctor or pharmacist before using ibuprofen with any other medications, especially: ?? cyclosporine; ?? lithium; ?? methotrexate; ?? a blood thinner (warfarin, Coumadin, Jantoven); ?? heart or blood pressure medication, including a diuretic or 'water pill'; or ?? steroid medicine (such as prednisone). This list is not complete. Other drugs may affect ibuprofen, including prescription and [id number] medicines, vitamins, and herbal products. Not all possible drug interactions are listed here. Where can I get more information? Your pharmacist can provide more information about ibuprofen. Remember, keep this and all other medicines out of the reach of children, never share your medicines with others, and use this medication only for the indication prescribed. Every effort has been made to ensure that the information provided by [employer]. ('[employer]') is accurate, up-to-date, and complete, but no guarantee is made to that effect. Drug information contained herein may be time sensitive. [employer] information has been compiled for use by healthcare practitioners and consumers in the [place] and therefore [employer] does not warrant that uses outside of the [place] are appropriate, unless specifically indicated otherwise. [employer]'s drug information does not endorse drugs, diagnose patients or recommend therapy. [employer] drug information is an informational resource designed to assist licensed healthcare practitioners in caring for their patients and/or to serve consumers viewing this service as a supplement to, and not a substitute for, the expertise, skill, knowledge and judgment of healthcare practitioners. The absence of a warning for a given drug or drug combination in no way should be construed to indicate that the drug or drug combination is safe, effective or appropriate for any given patient. [employer] does not assume any responsibility for any aspect of healthcare administered with the aid of information [employer] provides. The information contained herein is not intended to cover all possible uses, directions, precautions, warnings, drug interactions, allergic reactions, or adverse effects. If you have questions about the drugs you are taking, check with your doctor, nurse or pharmacist. Copyright [id number] [employer]. Version: 22.01. Revision Date: 04/10/2020. docusate (oral/rectal) (DOK madaye sate) Colronda, Rejicto, Doc-Q-Lace, Docu, Doculase, Docusil, Docusoft S, DocuSol, Dulcolax Stool Softener, Enemeez Mini, John-Tin, Pedia-Lax Stool Softener, Torrez Stool Softener, Promolaxin, Silace, Surfak Stool Softener, Ramesh-Q-Lax What is the most important information I should know about docusate? You should not use docusate if you also use mineral oil, unless your doctor tells you to. What is docusate? Docusate is a stool softener that makes bowel movements softer and easier to pass. Docusate is used to relieve occasional constipation (irregularity). There are many brands and forms of docusate available. Not all brands are listed on this leaflet. Docusate may also be used for purposes not listed in this medication guide. What should I discuss with my healthcare provider before using docusate? You should not use docusate if you are allergic to it. Ask a doctor or pharmacist if this medicine is safe to use if you have: ?? stomach pain; ?? nausea; ?? vomiting; or ?? a sudden change in bowel habits that lasts over 2 weeks. Ask a doctor before using this medicine if you are or . Do not give this medicine to a child without medical advice. How should I use docusate? Use exactly as directed on the label, or as prescribed by your doctor. Drink plenty of liquids while you are using docusate. Measure liquid medicine carefully. Use the dosing syringe provided, or use a medicine dose-measuring device (not a kitchen spoon). Do not take the rectal enema by mouth. Rectal medicine is for use only in the rectum. Wash your hands before and after using the enema. To use the enema, lie on your left side with your left leg extended and your right leg slightly bent. Remove the cap from the applicator tip and gently insert the tip into your rectum. Slowly squeeze the bottle to empty the contents into the rectum. After using the enema, lie down on your left side for at least 30 minutes to allow the liquid to distribute throughout your intestines. Avoid using the bathroom, and hold in the enema at least 1 hour, or all night if possible. Read and carefully follow any Instructions for Use provided with your medicine. Ask your doctor or pharmacist if you do not understand these instructions. Docusate generally produces bowel movement in 12 to 72 hours. Call your doctor if your symptoms do not improve after 72 hours. You should not use docusate for longer than 1 week, unless your doctor tells you to. Store at room temperature away from moisture and heat. Do not freeze liquid medicine. What happens if I miss a dose? Since docusate is used when needed, you may not be on a dosing schedule. Skip any missed dose if it's almost time for your next dose. Do not use two doses at one time. What happens if I overdose? Seek emergency medical attention or call the Poison Help line at . What should I avoid while using docusate? Avoid using mineral oil, unless told to do so by a doctor. What are the possible side effects of docusate? Get emergency medical help if you have signs of an allergic reaction: hives; difficult breathing; swelling of your face, lips, tongue, or throat. Stop using docusate and call your doctor at once if you have: ?? rectal bleeding or irritation; or ?? no bowel movement after 72 hours. Less serious side effects may be more likely, and you may have none at all. This is not a complete list of side effects and others may occur. Call your doctor for medical advice about side effects. You may report side effects to FDA at 8-381-WES-5843. What other drugs will affect docusate? Other drugs may affect docusate, including prescription and [id number]-swywxov medicines, vitamins, and herbal products. Tell your doctor about all your current medicines and any medicine you start or stop using. Where can I get more information? Your pharmacist can provide more information about docusate. Remember, keep this and all other medicines out of the reach of children, never share your medicines with others, and use this medication only for the indication prescribed. Every effort has been made to ensure that the information provided by [employer]. ('[employer]') is accurate, up-to-date, and complete, but no guarantee is made to that effect. Drug information contained herein may be time sensitive. [employer] information has been compiled for use by healthcare practitioners and consumers in the [place] and therefore [employer] does not warrant that uses outside of the [place] are appropriate, unless specifically indicated otherwise. [employer]'s drug information does not endorse drugs, diagnose patients or recommend therapy. [employer] drug information is an informational resource designed to assist licensed healthcare practitioners in caring for their patients and/or to serve consumers viewing this service as a supplement to, and not a substitute for, the expertise, skill, knowledge and judgment of healthcare practitioners. The absence of a warning for a given drug or drug combination in no way should be construed to indicate that the drug or drug combination is safe, effective or appropriate for any given patient. [employer] does not assume any responsibility for any aspect of healthcare administered with the aid of information [facility] provides. The information contained herein is not intended to cover all possible uses, directions, precautions, warnings, drug interactions, allergic reactions, or adverse effects. If you have questions about the drugs you are taking, check with your doctor, nurse or pharmacist. Copyright [id number] [employer]. Version: 4.01. Revision Date: 11/21/2018. acetaminophen and oxycodone (a SEET a MIN oh fen and OX i KOE done) Endocet 10/325, Endocet 2.5/325, Endocet 5/325, Endocet 7.5/325, Nalocet, Percocet, Primlev What is the most important information I should know about acetaminophen and oxycodone? MISUSE OF OPIOID MEDICINE CAN CAUSE ADDICTION, OVERDOSE, OR . Keep the medication in a place where others cannot get to it. Taking opioid medicine during may cause life-threatening withdrawal symptoms in the . Fatal side effects can occur if you use opioid medicine with alcohol, or with other drugs that cause drowsiness or slow your breathing. Stop taking this medicine and call your doctor right away if you have skin redness or a rash that spreads and causes blistering and peeling. What is acetaminophen and oxycodone? Acetaminophen and oxycodone is a combination medicine used to relieve moderate to severe pain. Acetaminophen and oxycodone contains an opioide medicine and may be habit-forming. Acetaminophen and oxycodone may also be used for purposes not listed in this medication guide. What should I discuss with my healthcare provider before taking acetaminophen and oxycodone? You should not use this medicine if you are allergic to acetaminophen or oxycodone, or if you have: ?? severe asthma or breathing problems; or ?? a blockage in your stomach or intestines. Tell your doctor if you have ever had: ?? breathing problems, sleep apnea; ?? liver disease; ?? a drug or alcohol addiction; ?? kidney disease; ?? a head injury or seizures; ?? urination problems; or ?? problems with your thyroid, pancreas, or gallbladder. If you use opioid medicine while you are , your baby could become dependent on the drug. This can cause life-threatening withdrawal symptoms in the baby after it is born. Babies born dependent on opioids may need medical treatment for several weeks. Ask a doctor before using opioid medicine if you are . Tell your doctor if you notice severe drowsiness or slow breathing in the nursing baby. How should I take acetaminophen and oxycodone? Follow all directions on your prescription label. Never take this medicine in larger amounts, or for longer than prescribed. An overdose can damage your liver or cause . Tell your doctor if you feel an increased urge to use more of this medicine. Never share opioid medicine with another person, especially someone with a history of drug abuse or addiction. MISUSE CAN CAUSE ADDICTION, OVERDOSE, OR . Keep the medicine in a place where others cannot get to it. Selling or giving away opioid medicine is against the law. Measure liquid medicine carefully. Use the dosing syringe provided, or use a medicine dose-measuring device (not a kitchen spoon). If you need surgery or medical tests, tell the doctor ahead of time that you are using this medicine. You should not stop using this medicine suddenly. Follow your doctor's instructions about tapering your dose. Store at room temperature away from moisture and heat. Keep track of your medicine. You should be aware if anyone is using it improperly or without a prescription. Do not keep leftover opioid medication. Just one dose can cause in someone using this medicine accidentally or improperly. Ask your pharmacist where to locate a drug take-back disposal program. If there is no take-back program, flush the unused medicine down the toilet. What happens if I miss a dose? Since this medicine is used for pain, you are not likely to miss a dose. Skip any missed dose if it is almost time for your next dose. Do not use two doses at one time. What happens if I overdose? Seek emergency medical attention or call the Poison Help line at . An overdose of this medicine can be fatal, especially in a child or other person using the medicine without a prescription. Overdose symptoms may include nausea, vomiting, sweating, severe drowsiness, pinpoint pupils, slow breathing, or no breathing. Your doctor may recommend you get naloxone (a medicine to reverse an opioid overdose) and keep it with you at all times. A person caring for you can give the naloxone if you stop breathing or don't wake up. Your caregiver must still get emergency medical help and may need to perform CPR (cardiopulmonary resuscitation) on you while waiting for help to arrive. Anyone can buy naloxone from a pharmacy or local health department. Make sure any person caring for you knows where you keep naloxone and how to use it. What should I avoid while taking acetaminophen and oxycodone? Avoid driving or operating machinery until you know how this medicine will affect you. Dizziness or drowsiness can cause falls, accidents, or severe injuries. Do not drink alcohol. Dangerous side effects or could occur. Ask a doctor or pharmacist before using any other medicine that may contain acetaminophen (sometimes abbreviated as APAP). Taking certain medications together can lead to a fatal overdose. What are the possible side effects of acetaminophen and oxycodone? Get emergency medical help if you have signs of an allergic reaction: hives; difficulty breathing; swelling of your face, lips, tongue, or throat. Opioid medicine can slow or stop your breathing, and may occur. A person caring for you should give naloxone and/or seek emergency medical attention if you have slow breathing with long pauses, blue colored lips, or if you are hard to wake up. In rare cases, acetaminophen may cause a severe skin reaction that can be fatal. This could occur even if you have taken acetaminophen in the past and had no reaction. Stop taking this medicine and call your doctor right away if you have skin redness or a rash that spreads and causes blistering and peeling. Call your doctor at once if you have: ?? noisy breathing, sighing, shallow breathing, breathing that stops; ?? a light-headed feeling, like you might pass out; ?? weakness, tiredness, fever, unusual bruising or bleeding; ?? confusion, unusual thoughts or behavior; ?? problems with urination; ?? liver problems--nausea, upper stomach pain, tiredness, loss of appetite, dark urine, rosa isela-colored stools, jaundice (yellowing of the skin or eyes); ?? low cortisol levels-- nausea, vomiting, loss of appetite, dizziness, worsening tiredness or weakness; or ?? high levels of serotonin in the body--agitation, hallucinations, fever, sweating, shivering, fast heart rate, muscle stiffness, twitching, loss of coordination, nausea, vomiting, diarrhea. Serious breathing problems may be more likely in older adults and in those who are debilitated or have wasting syndrome or chronic breathing disorders. Common side effects include: ?? dizziness, drowsiness, feeling tired; ?? feelings of extreme happiness or sadness; ?? nausea, vomiting, stomach pain; ?? constipation; or ?? headache. This is not a complete list of side effects and others may occur. Call your doctor for medical advice about side effects. You may report side effects to FDA at 3-523-KET-1000. What other drugs will affect acetaminophen and oxycodone? You may have breathing problems or withdrawal symptoms if you start or stop taking certain other medicines. Tell your doctor if you also use an antibiotic, antifungal medication, heart or blood pressure medication, seizure medication, or medicine to treat HIV or hepatitis C. Opioid medication can interact with many other drugs and cause dangerous side effects or . Be sure your doctor knows if you also use: ?? cold or allergy medicines, bronchodilator asthma/COPD medication, or a diuretic ('water pill'); ?? medicines for motion sickness, irritable bowel syndrome, or overactive bladder; ?? other opioids--opioid pain medicine or prescription cough medicine; ?? a sedative like Valium--diazepam, alprazolam, lorazepam, Xanax, Klonopin, Versed, and others; ?? drugs that make you sleepy or slow your breathing--a sleeping pill, muscle relaxer, medicine to treat mood disorders or mental illness; ?? drugs that affect serotonin levels in your body--a stimulant, or medicine for depression, Parkinson's disease, migraine headaches, serious infections, or nausea and vomiting. This list is not complete. Other drugs may affect acetaminophen and oxycodone, including prescription and hnpr-epj-ktyooke medicines, vitamins, and herbal products. Not all possible interactions are listed here. Where can I get more information? Your doctor or pharmacist can provide more information about acetaminophen and oxycodone. Remember, keep this and all other medicines out of the reach of children, never share your medicines with others, and use this medication only for the indication prescribed. Every effort has been made to ensure that the information provided by [employer]. ('[employer]') is accurate, up-to-date, and complete, but no guarantee is made to that effect. Drug information contained herein may be time sensitive. [employer] information has been compiled for use by healthcare practitioners and consumers in the [place] and therefore [employer] does not warrant that uses outside of the [place] are appropriate, unless specifically indicated otherwise. [employer]'s drug information does not endorse drugs, diagnose patients or recommend therapy. [employer] drug information is an informational resource designed to assist licensed healthcare practitioners in caring for their patients and/or to serve consumers viewing this service as a supplement to, and not a substitute for, the expertise, skill, knowledge and judgment of healthcare practitioners. The absence of a warning for a given drug or drug combination in no way should be construed to indicate that the drug or drug combination is safe, effective or appropriate for any given patient. [employer] does not assume any responsibility for any aspect of healthcare administered with the aid of information [employer] provides. The information contained herein is not intended to cover all possible uses, directions, precautions, warnings, drug interactions, allergic reactions, or adverse effects. If you have questions about the drugs you are taking, check with your doctor, nurse or pharmacist. Copyright 8240-8803 [employer]. Version: 20.03. Revision Date: 06/21/2020. Emergency Awareness and Preventative Care STROKE is an EMERGENCY Every Minute Counts Act FAST and Check for these signs: FACE Does the face look uneven? ARM Does one arm drift down? SPEECH Does their speech sound strange? TIME Call at any sign of stroke Stroke Risk Factors Atrial Fibrillation (irregular heartbeat) Diabetes Family history of stroke Heart Disease Heavy alcohol use High Blood Pressure High Cholesterol Physical inactivity and obesity Smoking Cigarette Smoking The facts are clear, cigarette smoking will shorten your life. Smoking can cause many illnesses along the way. As a healthcare provider, we recommend that you stop smoking. Assistance with quitting is available by contacting 3-928-LQNX-NOW. This is a free resource providing counseling, support, and referral. Or you may contact your personal physician. National Suicide Prevention Lifeline: The National Suicide Prevention Lifeline is a national network of local crisis centers that provides free and confidential emotional support to people in suicidal crisis or emotional distress 24 hours a day, 7 days a week. Don't Wait! Stop a Heart Attack Before it Starts What is a heart attack? A heart attack is damage or to a part of the heart from severely decreased or lack of blood flow to the heart. Over time, arteries can become narrow from the buildup of fat and cholesterol, which is called plaque. The plaque can rupture causing a blood clot to form. When the blood clot forms, the artery can become severely narrowed or completely blocked, causing a heart attack. Heart attack is the leading cause of in the [place]. 85% of muscle damage occurs within the first 2 hours. Delay in the recognition of heart attack symptoms increases the chances of . Know the early symptoms of a heart attack: Nausea Feeling of fullness in chest Jaw Pain Pain that travels down one or both arms Fatigue/being tired Anxiety Back Pain Chest pressure, squeezing, or discomfort Shortness of breath Sweating, or a cold sweat Feeling of impending doom There are unusual signs of a heart attack, too! Women, the elderly, and diabetics may present with atypical symptoms: Fainting/dizziness Weakness Confusion Risk Factors for a Heart Attack Some heart disease risk factors, such as age and family history, cannot be changed. Others, like smoking and lack of exercise, can be changed. Smoking High Cholesterol High Blood Pressure Family History Obesity Age Gender (Males are at higher risk) Lack of Exercise Diabetes Diet Stress Excessive Alcohol Intake If you or someone you know is experiencing the signs and symptoms of a heart attack, DON???T DELAY. Call immediately and seek help. If someone collapses, perform CPR! Do not attempt to drive if you are having symptoms of heart attack. Hands-Only CPR Why Hands-Only CPR? Hands-Only CPR has been shown to be as effective as conventional CPR for cardiac arrests that occur outside of a hospital. Survival depends on immediately receiving CPR from someone nearby. How do you perform Hands-Only CPR? There are two easy steps: Call if you see a teen or adult collapse Push hard and fast in the center of the chest at a beat of 100 beats per minute. Save a life! 4 WAYS TO GET AHEAD OF SEPSIS SEPSIS is a MEDICAL EMERGENCY. Time matters! Infections put you and your family at risk for a life-threatening condition called sepsis. Sepsis is the body's extreme response to an infection. It is life-threatening, and without timely treatment, sepsis can rapidly lead to tissue damage, organ failure, and . Sepsis happens when an infection you already have-in your skin, lungs, urinary tract or somewhere else-triggers a chain reaction throughout your body. 1 PREVENT INFECTIONS Take good care of chronic conditions. Talk to your doctor about getting the recommended vaccines. 2 PRACTICE GOOD HYGIENE Wash your hands frequently. Keep cuts or open sores clean and covered until they are healed. 3 KNOW THE SYMPTOMS Confusion or disorientation Shortness of breath High heart rate Fever, shivering, or feeling very cold Extreme pain or discomfort Clammy or sweaty skin 4 ACT FAST Get medical care IMMEDIATELY if you suspect sepsis or if you have an infection that is not getting better or is getting worse. To learn more about sepsis and how to prevent infections, visit www.cdc.gov/sepsis. Test Results Laboratory or Other Results This Visit (last charted value for your 04/04/2021 visit) Hematology 04/05/2021 7:02 AM WBC: 15.6 K/uL -- Normal range between ( 3.9 and 10.0 ) RBC: 3.76 Million/uL -- Normal range between ( 3.93 and 5.22 ) Hct: 33.2 % -- Normal range between ( 34.1 and 44.9 ) Hgb: 10.9 Gram/dL -- Normal range between ( 11.2 and 15.7 ) Platelet Count: 487 K/uL -- Normal range between ( 163 and 369 ) MCH: 29.0 pg -- Normal range between ( 25.6 and 32.2 ) MCHC: 32.8 Gram/dL -- Normal range between ( 32.3 and 36.5 ) MCV: 88.3 fL -- Normal range between ( 79.0 and 94.8 ) Slide Review: No RDW: 14.7 % -- Normal range between ( 11.6 and 14.4 ) MPV: 9.6 fL -- Normal range between ( 9.4 and 12.4 ) 04/04/2021 11:13 AM Eos %: 1.7 % -- Normal range between ( 1.0 and 7.0 ) Gage #: 0.94 K/uL -- Normal range between ( 0.24 and 0.82 ) Eos #: 0.24 K/uL -- Normal range between ( 0.04 and 0.54 ) Gage %: 6.5 % -- Normal range between ( 4.7 and 12.5 ) Baso %: 0.2 % -- Normal range between ( 0.0 and 1.0 ) Baso #: 0.03 K/uL -- Normal range between ( 0.01 and 0.08 ) Neut %: 76.9 % -- Normal range between ( 34.0 and 71.0 ) Neut #: 11.19 K/uL -- Normal range between ( 1.56 and 6.13 ) Lymph %: 14.0 % -- Normal range between ( 19.3 and 53.0 ) Lymph #: 2.03 K/uL -- Normal range between ( 1.18 and 3.74 ) IG#: 0 x10(3)/uL IG%: 1 % -- Normal range between ( 0 and 1 ) Blood Bank 04/04/2021 11:48 AM ABO/Rh Repeat: A POS 04/04/2021 11:13 AM ABO/Rh: A POS Antibody Screen (Tube): Negative ABSC Toxicology 04/04/2021 11:13 AM UDS Amp: Negative UDS Taylor: Negative UDS Benzo: Negative UDS Omayra: Negative UDS Meth: Negative UDS Opi: Negative UDS Oxy: Negative UDS PCP: Negative UDS TCA: Negative UDS THC: Positve Buprenorphine Screen, Urine: Positive Electronically signed by [facility], [facility] Conversion Service Station Manager Cerner at 09/01/2022 10:31 PM CDT documented in this encounter Plan of Treatment Not on file documented as of this encounter Visit Diagnoses Not on filedocumented in this encounter Care Teams Long Term Care Phlebotomist Relationship Specialty Start Date End Date Kerwin Verde, [address] [place] [facility] [address] [place] [address] PCP - General Internal Medicine 07/14/24 documented as of this encounter
--- OUTSIDE RECORDS SUMMARY | 2025-01-16 10:38 | XMS_ITS | Encounter Summary ---
Author Organization [employer] ([place], [place], [place], [place]) Address [address] [place] [address] Care Team Providers Care Sign Writer Hand Name Role Phone Kerwin Verde DO Primary Care Provider [phone] Encounter Details Date Type Department Care Team (Late st Contact Info) Description 04/08/2021 Transcribed Document [facility] [place] [facility] [place] [address] ProviderZeina MD [address] [place] [address] Social History Tobacco Use Types Packs/Day Years Used Date Smoking Tobacco: Never Assessed Comments Unknown Sex and Gender Information Value Date Recorded Sex Assigned at Female 05/05/2024 11:22 AM BOWL SANDER Legal Sex Female 7:21 PM CDT Gender Identity Female 05/05/2024 11:22 AM BOWL SANDER Sexual Orientation Straight 05/05/2024 11 :22 AM BOWL SANDER documented as of this encounter Miscellaneous Notes * Cerner Conversion Note - Zeina ProviderMD - 04/08/2021 2:22 PM BOWL SANDER Patient Resource Center Entered On: 04/08/2021 14:24 EST Performed On: 04/08/2021 14:22 EST by Kate Pinedo, PIER HAND HELPER Patient Resource Center Provider Status : No Assigned Primary Care Established Provider Name : KELSIE PCP Patient Phone Number : [phone] Patient Insurance Type : Medicaid (ex. Well[employer], Passport) Source of Referral : Case management Location of Patient : Case management referral Primary Care Scheduled : Yes Primary Care Scheduled Type : Non [facility] Primary Care Provider Name : LICHA WILLIAMSON Primary Care Appointment Date/Time : 04/16/2021 10:30 EST Specialty Care Scheduled : Yes Specialty Type Scheduled1 : [facility] Obstetrics/Gynecology [facility] Obstetrics/Gynecology Provider Name : LG TAM VLADIMIR Obstetrics/Gynecology Appointment Date/Time : 04/18/2021 9:20 EST Qualify for Diabetes and/or Nutrition Referral : No Wound Care Appointment Made : No Why Patient Visited ED- Specialty spent : Other How Patient Arrived at ED : Other Patient Resource Center Comment : New primary care and OBGYN appointment made Kate Pinedo, PIER HAND HELPER - 04/08/2021 14:22 EST Electronically signed by [facility], [facility] Conversion Ice Cream Scooper Cerner at 09/01/2022 10:45 PM CDT documented in this encounter Plan of Treatment Not on file documented as of this encounter Visit Diagnoses Not on filedocumented in this encounter Care Teams Sign Writer Hand Relationship Specialty Start Date End Date Kerwin Verde DO [address] [place] [address] PCP - General Internal Medicine 07/14/24 documented as of this encounter
--- OUTSIDE RECORDS SUMMARY | 2025-01-16 10:38 | XMS_ITS | Encounter Summary ---
Author Organization [employer] ([place], [place], [place], [place]) Address [address] [place] [address] Care Team Providers Care Pressure Washer Name Role Phone Kerwin Verde DO Primary Care Provider [phone] Encounter Details Date Type Department Care Team (Late st Contact Info) Description 04/06/2021 Transcribed Document [facility] [place] [facility] [place] [address] ProviderZeina MD [address] [place] [address] Social History Tobacco Use Types Packs/Day Years Used Date Smoking Tobacco: Never Assessed Comments Unknown Sex and Gender Information Value Date Recorded Sex Assigned at Female 05/05/2024 11:22 AM ACT TUTOR Legal Sex Female 7:21 PM CDT Gender Identity Female 05/05/2024 11:22 AM ACT TUTOR Sexual Orientation Straight 05/05/2024 11 :22 AM ACT TUTOR documented as of this encounter Miscellaneous Notes * Cerner Conversion Note - Historical ProviderMD - 04/06/2021 1:08 PM ACT TUTOR Patient: ROBYN LOUIS Age: 35 Years Sex: Female : 1985 Chief Complaint: PO PP day #2, s/p scheduled vacuum assisted repeat c/s at 39.2wks Subjective Pt has no c/o today, denies s/s PPH or PPD. Pt further denies chest pain, SOA, n/v/d. Pt states she is ambulating and voiding without difficulty and states her pain is well controlled. Pt is breast and bottle feeding and states baby is doing well Review of Systems ROS neg except for HPI VSS, Afebrile H&H 10.9/33.2 Plts 487 Objective General: wd/wn, responds appropriately Breast: SNT Cardiovascular: RRR Lungs: CTA, b/l non labored Abdomen: soft, mildly tender over incision, uterus is firm at 1 below umbilicus, scant lochia Ext: MAEW, trace b/l lower extremity edema, no calf pain Incision/Episiotomy/Lac: CDI, approximated, covered with steri strips HEENT: normocephalic, PERRL Neuro: AA&OX4, in NAD, no weakness or numbness Psych: nml mood and affect Assessment/Plan PO PP day #2 Continue current POC Vacuum assisted delivery Single live breast and bottle fed infant 39 weeks gestation Infant Data [place] (X) NICU (_) Medications Inpatient aluminum hydroxide/magnesium [...] / L 33.2 \ Electronically signed by Carol, [facility] Conversion Carpet Journeyman Cerner at 09/01/2022 10:46 PM CDT documented in this encounter Plan of Treatment Not on file documented as of this encounter Visit Diagnoses Not on filedocumented in this encounter Care Teams Pressure Washer Relationship Specialty Start Date End Date Kerwin Verde DO [address] [place] [address] [facility] [address] [place] [address] PCP - General Internal Medicine 07/14/24 documented as of this encounter
--- OUTSIDE RECORDS SUMMARY | 2025-01-16 10:38 | XMS_ITS | Referral Summary ---
Author Organization [employer] ([place], [place], [place], [place]) Address [address] [place] [address] Care Team Providers Care Director Of Special Education Name Role Phone Kerwin Verde Bernardo Primary Care Provider [phone] Allergies Active Allergy Reactions Criticality Noted Date [...] EDT): Pt here today for incision check. Beasley removed, incision clean, dry, and intact. Erythema [...] tanus toxoid preservative free 12/22/2002 Tdap 03/20/2021 Social History Tobacco Use Types Packs/Day Years [...] does anyone, bridger carrillo family and friends, threaten you with harm? Never 07/15/2024 How often does anyone, bridger carrillo family and friends, scream or curse at you? Never 07/15/2024 Housing Stability Answer Date Recorded What is your living situation today? I have a [facility] place to live 07/15/2024 Think about the [...] Do you speak a language other than [facility]ese at [facility]? No 07/15/2024 Do [...] Sex Assigned at Female 05/05/2024 11:22 AM BENCH TECHNICIAN Legal Sex Female 7:21 PM CDT Gender Identity Female 05/05/2024 11:22 AM BENCH TECHNICIAN Sexual Orientation Straight 05/05/2024 11 :22 AM BENCH TECHNICIAN Last Filed Vital Signs Vital Sign Reading [...] Mass Index 39.82 10/08/2022 10:53 AM EDT Functional Status * Are you deaf or [...] No 10/11/2022 11:30 AM Leena Tariq RN Mental Status * Because of a physical, mental, or emotional condition, do you have serious difficulty concentrating, remembering, or making decisions? (5 years old or older) Answer Entry Date Author No 10/11/2022 11:30 AM Leena Tariq RN Plan of Treatment Not on file Procedures Procedure Name Priority Date/Time Associated Diagnosis [...] - 01/28/2024 6:11 AM EDT Performed at: [facility] [id number] [place] Machine Operator: Juan Morocho PhD, Phone: [phone] us Patsy Nunes DO LAB BLOOD ORDERABLES Final Resul t Performing Organization Address City/[facility]/ZIP Co de Phone Number [facility] * HIV-1 Antigen with HIV-1/2 Antibody (01/26/2024 11:56 AM EDT) HIV Screen 4th Generation wRfx Non Reactive Non Reactive [facility] Comment: HIV-1/HIV-2 antibodies and HIV-1 p24 antigen were NOT detected. There is no laboratory evidence of HIV infection. HIV Negative Blood 01/26/2024 11:5 6 AM EDT 01/26/2024 Narrative [facility] - 01/28/2024 6:11 AM EDT Performed at: [facility] [id number] [place] Machine Operator: Juan Morocho PhD, Phone: [phone] us Patsy Nunes DO LAB BLOOD ORDERABLES Final Resul t [facility] from Last 3 Months or Most Recently Relevant to Health Maintenance Insurance [facility] Advance Directives For more information, please contact: [phone] * Full Code (Latest Code Status on File) Date Activated Date Inactivated Comments 07/14/2024 12:49 PM 07/17/2024 3:23 PM * Full Code Date Activated Date Inactivated Comments 07/14/2024 9:47 AM 07/14/2024 12:49 PM * Full Code Date Activated Date Inactivated Comments 10/08/2022 2:06 PM 10/11/2022 3:30 PM * Full Code Date Activated Date Inactivated Comments 10/08/2022 9:59 AM 10/08/2022 2:06 PM Care Teams Director Of Special Education Relationship Specialty Start Date End Date Kerwin Verde, [address] [facility] [address] [place] [address] PCP - General Internal Medicine 07/14/24
--- OUTSIDE RECORDS SUMMARY | 2025-01-16 10:38 | XMS_ITS | Encounter Summary ---
Author Organization [employer] ([place], [place], [place], [place]) Address [address] [place] [address] Care Team Providers Care Alto Singer Name Role Phone Kerwin Verde DO Primary Care Provider [phone] Encounter Details Date Type Department Care Team (Late st Contact Info) Description 04/04/2021 Transcribed Document [facility] [place] [facility] [place] [address] ProviderZeina MD [address] [place] [address] Social History Tobacco Use Types Packs/Day Years Used Date Smoking Tobacco: Never Assessed Comments Unknown Sex and Gender Information Value Date Recorded Sex Assigned at Female 05/05/2024 11:22 AM KNOWLEDGE ANALYST Legal Sex Female 7:21 PM CDT Gender Identity Female 05/05/2024 11:22 AM KNOWLEDGE ANALYST Sexual Orientation Straight 05/05/2024 11 :22 AM KNOWLEDGE ANALYST documented as of this encounter Miscellaneous Notes * Cerner Conversion Note - Historical ProviderMD - 04/04/2021 4:03 PM KNOWLEDGE ANALYST Meds to Bed Enrollment Entered On: 04/07/2021 9:53 EST Performed On: 04/04/2021 16:03 EST by Reddy Lawrence, Graphic Design Manager Cert Meds to Bed Enrollment Patient Enrollment Decision: : Yes/enroll in meds to bed program Meds to Beds Comment : per service line Reddy Lawrence, Graphic Design Manager Cert - 04/07/2021 9:53 EST Electronically signed by Carol [facility] Conversion Metallurgical Engineer Cerner at 09/01/2022 10:36 PM CDT documented in this encounter Plan of Treatment Not on file documented as of this encounter Visit Diagnoses Not on filedocumented in this encounter Care Teams Alto Singer Relationship Specialty Start Date End Date Kerwin Verde DO [address] [facility] [address] [place] [address] PCP - General Internal Medicine 07/14/24 documented as of this encounter
--- OUTSIDE RECORDS SUMMARY | 2025-01-16 10:39 | XMS_ITS | Encounter Summary ---
Author Organization [employer] ([place], [place], [place], [place]) Address [address] [place] [address] Care Team Providers Care Fire Management Technician Name Role Phone Kerwin Verde Bernardo Primary Care Provider [phone] Encounter Details Date Type Department Care Team (Late st Contact Info) Description 04/04/2021 Transcribed Document [facility] [place] Pending sale [place] [address] ProviderZeina MD [address] [place] [address] Social History Tobacco Use Types Packs/Day Years Used Date Smoking Tobacco: Never Assessed Comments Unknown Sex and Gender Information Value Date Recorded Sex Assigned at Female 05/05/2024 11:22 AM PROCESSING MGR Legal Sex Female 7:21 PM CDT Gender Identity Female 05/05/2024 11:22 AM PROCESSING MGR Sexual Orientation Straight 05/05/2024 11 :22 AM PROCESSING MGR documented as of this encounter Miscellaneous Notes * Cerner Conversion Note - Historical ProviderMD - 04/04/2021 10:40 AM PROCESSING MGR Admission Data, OB Entered On: 04/04/2021 10:44 EST Performed On: 04/04/2021 10:40 EST by Anai Roberson RN Advance Directive Patient has Advance Directive *Q : No, patient refuses Advance Directive information Anai Roberson RN - 04/04/2021 10:40 EST Height and Weight Height Source : Stated Height Entry Format : [place] Height, Feet : 5 ft(Converted to: 152 cm, 60 Inch) Clinical Height : 160.02 cm Height, Inches : 3 Inch(Converted to: 0 ft 3 Inch, 7.62 cm) Weight Source : Standing scale Weight Entry Format : [place] Weight, Pounds : 237 lb Clinical Dosing Weight : 107.73 kg Body Surface Area (BSA) : 2.08 m2 Body Mass Index : 42.1 kg/m2 (>HHI) [place] Body Weight (IBW) : 52.02 kg Anai Roberson RN - 04/04/2021 10:40 EST Health Histories Smoking Status : 10 or more cigarettes (1/2 pack or more)/day in last 30 days Smokeless Tobacco Status : Never Desires Tobacco Cessation Medication : No Reason for No Tobacco Cessation Medication : Refuses FDA approved medications Anai Roberson RN - 04/04/2021 10:40 EST Social History (As Of: 04/04/2021 10:44:02 EST) Anemia Management Care Prior to 32 wks? : Prior to 32 wks Received Iron Transufsion : No Anai Roberson RN - 04/04/2021 10:40 EST Gestational Age Gestational Age Person Gestational Age At : 39 weeks 2 days Method : Comment : Tetanus Immunization Status Previous Tetanus Immunizations : No qualifying data available. Tetanus Immunization : Less than 5 years Anai Roberson RN - 04/04/2021 10:40 EST Influenza Vaccine Asmt, Adult Previous Vaccines from Immunization Schedule : No qualifying data available. Influenza Immunization, Current Season : No Inactivated Flu Vaccine Contraindications : No contraindications to inactivated influenza vaccine Transplant Workup/Recent Transplant : No Order for Influenza Vaccine : Order for influenza vaccine sent to pharmacy Anai Roberson RN - 04/04/2021 10:40 EST Pneumococcal Vaccine Previous Vaccines from Immunization Schedule : No qualifying data available. Pneumonia Immunization Received : No Pneumococcal Risk Assessment < Age 65 : None Anai Roberson RN - 04/04/2021 10:40 EST Order Details Transport Mode Order Detail : Ambulatory Isolation Precautions Order Detail : Standard Precautions Order Detail : 1 IV Order Detail : 1 Nurse Collect Order Detail : 1 Lift/Transfer : Independent Central Line Order Detail : No Room Service : Appropriate Arterial Line : No Patient Needs Meds Crushed/Liquid : No Anai Roberson RN - 04/04/2021 10:40 EST Vital Measurements Temperature Source : Oral Temperature, Fahrenheit : 98.8 Deg F Clinical Temperature, C : 37.1 Deg C Pulse Method : Non-Invasive BP Device Pulse Source : Apical Heart Rate, Apical : 105 bpm (HI) Pulse Rhythm : Regular Respiratory Rate : 18 Breaths/Min Blood Pressure Location : Arm, left upper Systolic Blood Pressure : 133 mmHg Diastolic Blood Pressure : 68 mmHg Anai Roberson RN - 04/04/2021 10:40 EST Infectious Disease History Does patient have symptoms of COVID-19? : No Has the Patient Been Tested for COVID-19 in the last 14 days? : No, Patient stated Does the Patient state known exposure to a COVID-19 positive case in the last 14 days? : No Patient Vaccinated for COVID-19 : Not vaccinated Does Patient want a COVID-19 Vaccine? : No Anai Roberson RN - 04/04/2021 10:40 EST Infectious Disease Risk Screening Grid Cough < 2 wks of unknown origin : NO Cough > 2 weeks : NO Blood in Sputum : NO Fever or self-reported Fever : NO Rash of unknown origin : NO Headache : NO Stiff neck : NO Night Sweats : NO Unexplained Weight Loss : NO Diarrhea (3 episode per day) : NO Anai Roberson RN - 04/04/2021 10:40 EST Physical contact outside [place] in the last 30 days : No Hospitalized in Foreign Country : No Infectious Disease History : None INF Disease TB Screening Calc : 0 INF Disease Recent Travel Calc : 0 Anai Roberson RN - 04/04/2021 10:40 EST [place] Suicide Severity Rating Scale (C-SSRS) CSSRS Past Month Wish to be : No CSSRS Past Month Suicidal Thoughts : No CSSRS Lifetime Suicide Behavior : No Suicide Severity Rating Score : 0 Suicide Severity Rating : No Additional Care Required at this time Anai Roberson RN - 04/04/2021 10:40 EST Electronically signed by Mil Medina Conversion Vice President Marketing & Development Cerner at 09/01/2022 10:54 PM CDT documented in this encounter Plan of Treatment Not on file documented as of this encounter Visit Diagnoses Not on filedocumented in this encounter Care Teams Fire Management Technician Relationship Specialty Start Date End Date Kerwin Verde DO [address] [facility] [address] [place] [id number] PCP - General Internal Medicine 07/14/24 documented as of this encounter
--- OUTSIDE RECORDS SUMMARY | 2025-01-16 10:39 | XMS_ITS | Encounter Summary ---
Author Organization [employer] ([place], [place], [place], [place]) Address [address] [place] [address] Care Team Providers Care Design Engineer Products Name Role Phone Kerwin Verde Bernardo Primary Care Provider [phone] Encounter Details Date Type Department Care Team (Late st Contact Info) Description 04/04/2021 Transcribed Document [facility] [place] [facility] [place] [address] ProviderZeina MD [address] [place] [address] Social History Tobacco Use Types Packs/Day Years Used Date Smoking Tobacco: Never Assessed Comments Unknown Sex and Gender Information Value Date Recorded Sex Assigned at Female 05/05/2024 11:22 AM BOARDING HOUSE MANAGER Legal Sex Female 7:21 PM CDT Gender Identity Female 05/05/2024 11:22 AM BOARDING HOUSE MANAGER Sexual Orientation Straight 05/05/2024 11 :22 AM BOARDING HOUSE MANAGER documented as of this encounter Miscellaneous Notes * Cerner Conversion Note - Historical ProviderMD - 04/04/2021 11:33 PM BOARDING HOUSE MANAGER Edger Saw Operator Details Entered On: 04/04/2021 23:33 EST Performed On: 04/04/2021 23:33 EST by Juli Julian RN-PATIENT CARE BEDSIDE NON-EXEMPT Order Details Transport Mode Order Detail : Ambulatory Isolation Precautions Order Detail : Standard Precautions Order Detail : 0 IV Order Detail : 1 Oxygen Order Detail : 0 Nurse Collect Order Detail : 0 Lift/Transfer : Independent Central Line Order Detail : No Room Service : Appropriate Arterial Line : No Patient Needs Meds Crushed/Liquid : No Juli Julian RN-PATIENT CARE BEDSIDE NON-EXEMPT - 04/04/2021 23:33 EST Electronically signed by [facility] Conversion Animal Geneticist Cerner at 09/01/2022 10:52 PM CDT documented in this encounter Plan of Treatment Not on file documented as of this encounter Visit Diagnoses Not on filedocumented in this encounter Care Teams Design Engineer Products Relationship Specialty Start Date End Date Kerwin Verde DO [address] [place] [address] PCP - General Internal Medicine 07/14/24 documented as of this encounter
--- OUTSIDE RECORDS SUMMARY | 2025-01-16 10:39 | XMS_ITS | Encounter Summary ---
Author Organization [employer] ([place], [place], [place], [place]) Address [address] [place] [address] Care Team Providers Care Field Clinical Engineer Name Role Phone Kerwin Verde DO Primary Care Provider [phone] Encounter Details Date Type Department Care Team (Late st Contact Info) Description 04/04/2021 Transcribed Document [facility] [place] Family Medicine [facility] [place] [address] ProviderZeina MD [address] [place] [address] Social History Tobacco Use Types Packs/Day Years Used Date Smoking Tobacco: Never Assessed Comments Unknown Sex and Gender Information Value Date Recorded Sex Assigned at Female 05/05/2024 11:22 AM ROLL WINDER Legal Sex Female 7:21 PM CDT Gender Identity Female 05/05/2024 11:22 AM ROLL WINDER Sexual Orientation Straight 05/05/2024 11 :22 AM ROLL WINDER documented as of this encounter Miscellaneous Notes * Cerner Conversion Note - Historical ProviderMD - 04/04/2021 2:43 PM ROLL WINDER Patient: ROBYN LOUIS Age: 35 Years Sex: Female : 1985 *Operation Repeat low transverse section Indication for Surgery Patient is a 35yo at 39w4d who presents for scheduled repeat . complicated by polyhydramnios, suboxone use, obesity, short interpregnancy interval, and VSD. *Preoperative Diagnosis 35yo at 39w4d Previous Short interpregnancy interval Polyhydramnios Suboxone use Obesity, BMI >40 VSD *Postoperative Diagnosis Same Live male *Surgeon(s) Primary Surgeon Patsy Cardenas DO *Procedure Narrative The risks, benefits, and alternatives were discussed with the patient including but not limited to risk of infection, bleeding, damage to bowel, bladder, ureters and major blood vessels. The patient voiced understanding and agreed to proceed. The patient was taken to the operating room where spinal anesthesia was placed without difficulty. She was laid in the dorsal supine position and heart tones were obtained. Luque catheter was placed and noted to be draining clear urine prior to the start of the procedure. The patient was prepped and draped in the normal sterile fashion. Allis clamp was used to test for adequate anesthesia. Scalpel was used to make a low transverse incision approximately 2cm above the pubic symphysis. Incision was carried down to the level of the fascia which was nicked in the midline. Armijo scissors were used to extend the fascial incision bilaterally. Kochers were placed at the superior and inferior fascial edges. Fascia was then dissected away from the underlying rectus muscle. Rectus muscles and peritoneum were then entered bluntly in the midline and extended superiorly/inferiorly. Bladder blade was placed. Scalpel was used to make a low transverse uterine incision which was then extended bluntly. Dian clamp was used to rupture membranes. Clear amniotic fluid noted. Attempt was made to deliver head and was unsuccessful. Kiwi vacuum was placed for 1 pull, 1 pop-off. Next, left rectus muscle was incised, and head was delivered in the vertex presentation without difficulty. Mouth/nares were bulb suctioned. Remainder of body delivered without difficulty. Cord was clamped/cut and was handed to awaiting respiratory personnel. Cord blood sample was obtained. Blood gases were collected. Placenta was extracted manually. Uterus was exteriorized and cleared of any remaining clots and debris. Allis clamps x 2 were used to identify the lateral aspects of the uterine incision. Incision was then re-approximated with 1 Monocryl suture in a running locking stitch. A second imbricating stitch was placed with another 1 Monocryl suture. Pelvic cavity cleared of any remaining clots and debris. Uterine closure re-inspected and noted to be hemostatic. Uterus was placed back inside the pelvic cavity. Incision was once again re-inspected and noted to be hemostatic. Left rectus muscle incision was closed in a running locking fashion with 0 Vicryl. Hemostasis noted. Jordi was placed over uterine incision and left rectus muscle. Hemostats x 3 were used to identify the peritoneum. Peritoneum was re-approximated in the midline with 2-0 Vicryl suture in a running stitch. The rectus muscle bed was inspected and noted to be hemostatic. Fascia was re-approximated with1 Vicryl suture in a running stitch. Subcutaneous tissues were re-approximated with 3-0 Vicryl suture in a running stitch. Skin edges were re-approximate with Monocryl. Steristrips were placed over the incision. Luque catheter was draining clear urine at the end of the procedure. Sponge, instrument, and needle counts were correct at the end of the procedure. Patient was cleaned and transported to the recovery room in stable condition. She tolerated the procedure well and will be admitted for standard post-operative care and management. Upon discharge she will be given prescriptions for pain control and instructions for home. She will be asked to follow-up in the office in 2 weeks. Drains/Packs Used None Anesthesia Spinal *Estimated Blood Loss 700cc *Findings Normal uterus, bilateral fallopian tubes, and ovaries Live male infant weighing 8lbs 15oz *Specimen(s) Cord gas Cord blood Complications None Date of Service 04/04/2021 documented in this encounter Plan of Treatment Not on file documented as of this encounter Visit Diagnoses Not on filedocumented in this encounter Care Teams Field Clinical Engineer Relationship Specialty Start Date End Date Kerwin Verde DO [address] [facility] [address] [place] [address] PCP - General Internal Medicine 07/14/24 documented as of this encounter
== END 2025-01-16 23:59 | disposition home or self-care (01) ==
LOC: RAD 10:00
PROVIDERS: PCP Internal Medicine; Visit Provider Internal Medicine
DX: K46.9 Unspecified abdominal hernia without obstruction or gangrene (principal); R93.5 Abnormal findings on diagnostic imaging of other abdominal regions, including retroperitoneum
CPT/HCPCS: 76700